=== PATIENT | female | born 1940 | race Caucasian/White ===

== ENCOUNTER 2018-07-09 11:15 | Outpatient (RCR) | payer MEDICARE, OTHER, SELFPAY ==
--- NOTE | 2018-05-12 09:45 | PT.OPPOC ---
Current Diagnoses Other abnormalities of gait and mobility (05/12/18) Unspecified abnormalities of gait and mobility (05/12/18) Provider Visit Care Team Role Provider Type Giselle Watson PA-C Attending Provider Advanced [employer] Primary Care Provider Specialty: Family Practice Address: [address] [place] [address], [facility] Email: [email or web address] Plan Of Care PT-OP-T Assessment and Plan Start: 05/12/18 10:30 Freq: Status: Active Protocol: Document 05/12/18 09:45 MDD (Rec: 05/12/18 10:54 MDD [email or web address]) Physical Therapy Assessment Rehab Potential Rehabilitation Potential Excellent Evaluation Complexity Number of Personal Factors/Comorbidities 1-2 Number of Body Systems Impaired 1-2 Clinical Presentation at Evaluation Stable Impairments Impairments Balance Functional Mobility Gait Strength Goals Four Impairment Balance Short Term Goal (STG) Pt to begin aerobic exercise program including walking on level ground for at least 30 minutes 5 days a week. STG Duration 6 weeks. Three Impairment Balance Fpc Goal (LTG) Pt to report no falls. LTG Duration 12 weeks Two Impairment Balance Short Term Goal (STG) Improve Staley Balance Score to 52/56 to demonstrate decreased fall risk. STG Duration 8 weeks One Impairment Strength Short Term Goal (STG) Improve LE strength to 5/5 in major muscle groups. STG Duration 8 weeks Assessment Summary Assessment Pt comes in today complaining of impaired balance with increased falls in the last year. On examination she demonstrates mild balance impairments and LE strength deficits. She should benefit from a physical therapy plan of care to address the above impairments. Physical Therapy Plan Frequency and Duration Frequency of Treatment 2x/Week Duration of Treatment 12 weeks Plan of Care Start Date 05/12/18 Plan of Care End Date 08/04/18 Therapeutic Interventions Therapeutic Interventions Balance Training Coordination Training Gait Training Home Exercise Program Neuromuscular Re-education Self-Care/Home Management Therapeutic Activities Therapeutic Exercises Next Visit Focus/Plan Next Note Type Treatment Note Next Visit Plan Perform DGI assessment, add standing hip abduction and additional exercises to HEP. Discuss walking program. Discuss considering cane. Plan of Care Dates Plan of Care Start Date 05/12/18 Plan of Care End Date 08/04/18 Please Sign and Return: I have reviewed this Plan of Care and certify that the skilled therapy services above are required to meet the patient?s needs. Physician Signature Date Printed Name and Credentials Clinical Instructor Signature Printed Name and Credentials
--- NOTE | 2018-05-12 09:45 | PT.OIE ---
Current Diagnoses Other abnormalities of gait and mobility (05/12/18) Unspecified abnormalities of gait and mobility (05/12/18) Provider Visit Care Team Role Provider Type Giselle Watson PA-C Attending Provider Advanced Neurosurgeon Primary Care Provider Specialty: Family Practice Address: [address] [place] [address], [facility] Email: [email or web address] Physical Therapy Initial Evaluation PT-OP-A Visit Information Start: 05/12/18 10:30 Freq: Status: Active Protocol: Document 05/12/18 09:45 MDD (Rec: 05/12/18 10:54 MDD [email or web address]) Out-Patient Physical Therapy Visit Information Visit Information Visit Type Initial Evaluation Visit Start Time 09:05 Visit Stop Time 09:45 Total Visit Minutes 40 Visit Number 1 Number of IRON PLASTIC BULLET MAKER Visits 0 Evaluation Information Evaluation Date 05/12/18 PT-OP-B Current Condition Start: 05/12/18 10:30 Freq: Status: Active Protocol: Document 05/12/18 09:45 MDD (Rec: 05/12/18 10:54 MDD [email or web address]) Current Condition History of Current Condition Onset Date Last few years Current Complaints worsening balance, multiple falls in the last 6 months History of Current Condition Incidious onset worsening balance. Reports she has to be very careful when bending forward or she will topple over. Also notes having difficulty going up/down stairs etc. Has one full flight of stairs in her home to get up to her bedroom, uses left hand railing. Lives alone. Has a daughter in [place] and a son in [place]. Denies dizziness, just feels like her balance is off. Prior Treatments and Tests auditory tests (nml) Future Testing and Treatments Planned NA Treatment Goals Patient/Caregiver Goals Decrease falls, improve balance, improve ability to ascend/descend stairs Prior Functional Status Baseline Function- ADL's Independent Baseline Function- Mobility Independent Baseline Function- Gait independent no AD Current Functional Impairments (Reported) Functional Limitations- Mobility/Gait Increasing falls, ascending/ descending stairs Functional Limitations- Recreation/ gardening - has to be extra Hobbies cautious to avoid falls PT-OP-C Subjective Start: 05/12/18 10:30 Freq: Status: Active Protocol: Document 05/12/18 09:45 MDD (Rec: 07/24/18 10:54 MDD [email or web address]) Patient Questionnaires ABC- Activity Specific Balance Confidence Scale ABC Functional Impairment 60 to <80% Impaired (Score 21- 40) PT-OP-D Balance Start: 05/12/18 10:30 Freq: Status: Active Protocol: Document 05/12/18 09:45 MDD (Rec: 05/12/18 10:54 MDD [email or web address]) OP-PT Balance Assessment Sitting Balance Static Sitting Balance Ability Normal Dynamic Sitting Balance Ability Normal Standing Balance Static Standing Balance Ability Good Dynamic Standing Balance Ability Fair Balance Tests Staley Balance Test Staley Balance Test Score 44 Staley Impairment Rating 20 to 39% Impaired (Score 34- 44) Staley Balance Assessment Evaluation Sitting to Standing Ability Independent w/out Hands Unsupported Stance Safely- 2 minutes Sitting Unsupported, Feet on Floor Safely- 2 minutes Standing to Sitting Ability Assist, Control w/Hands Transfer Ability Safely, Hand Use Unsupported Stance- Eyes Closed Supervision, 10 seconds Unsupported Stance- Eyes Open Supervision to maintain Reaching Forward Standing Confidently, 10 inches Pick- Up Object From Floor Supervision Look Behind Shoulder - Standing Shifts Weight Well Turning 360 Degrees Turns slowly, but safely Unsupported Stance, Alternating Feet on 4 Steps w/Supervision Stair Unsupported Tandem Stance Small Step- 30 seconds Unilateral Leg Stance Lifts Leg/Holds 5-10 secs Total Score Staley Total Score (out of 56 points) 44 Baez Fall Scale Copyright Permission Nestor JM, Nestor RM, Ti SJ. Development of a scale to identify the fall- prone patient. Can J Aging 1989;8;366-7. Fiorella Baez (2009). Preventing patient falls. (2nd ed). [place]: [employer]. PT-OP-G Mobility & Gait Start: 05/12/18 10:30 Freq: Status: Active Protocol: Document 05/12/18 09:45 MDD (Rec: 05/12/18 10:54 MDD [email or web address]) OP Mobility Evaluation Bed Mobility Rolling independent Supine to and from Sit independent OP Gait Assessment Gait Gait Assistance Required: Independent Distance (Feet) (feet) 30 Assistive Devices Assistive Device None PT-OP-M Strength Start: 05/12/18 10:30 Freq: Status: Active Protocol: Document 05/12/18 09:45 MDD (Rec: 05/12/18 10:54 MDD [email or web address]) Hip Strength Hip Manual Muscle Testing Right Flexion (L2) 5 Normal Extension (S1) 4+ Good+ Abduction 3+ Fair+ External Rotation 5 Normal Internal Rotation 5 Normal Left Flexion (L2) 4 Good Extension (S1) 4+ Good+ Abduction 3+ Fair+ External Rotation 5 Normal Internal Rotation 5 Normal Knee Strength Knee Manual Muscle Testing Right Flexion (S2) 5 Normal Extension (L3) 5 Normal Left Flexion (S2) 5 Normal Extension (L3) 5 Normal PT-OP-Q Treatments Start: 05/12/18 10:30 Freq: Status: Active Protocol: Document 05/12/18 09:45 MDD (Rec: 05/12/18 10:54 [facility] [email or web address]) Therapeutic Exercises Standing Exercises 2 Standing Exercise Name Heel Raises Side bilateral Reps/Minutes 2 x 20 Comments Using a counter for balance 1 Standing Exercise Name Sit to Stand Side bilateral Reps/Minutes 2 x 15 PT-OP-T Assessment and Plan Start: 05/12/18 10:30 Freq: Status: Active Protocol: Document 05/12/18 09:45 MDD (Rec: 05/12/18 10:54 [facility] [email or web address]) Physical Therapy Assessment Rehab Potential Rehabilitation Potential Excellent Evaluation Complexity Number of Personal Factors/Comorbidities 1-2 Number of Body Systems Impaired 1-2 Clinical Presentation at Evaluation Stable Impairments Impairments Balance Functional Mobility Gait Strength Goals Four Impairment Balance Short Term Goal (STG) Pt to begin aerobic exercise program including walking on level ground for at least 30 minutes 5 days a week. STG Duration 6 weeks. Three Impairment Balance Press Puller Goal (LTG) Pt to report no falls. LTG Duration 12 weeks Two Impairment Balance Short Term Goal (STG) Improve Staley Balance Score to 52/56 to demonstrate decreased fall risk. STG Duration 8 weeks One Impairment Strength Short Term Goal (STG) Improve LE strength to 5/5 in major muscle groups. STG Duration 8 weeks Assessment Summary Assessment Pt comes in today complaining of impaired balance with increased falls in the last year. On examination she demonstrates mild balance impairments and LE strength deficits. She should benefit from a physical therapy plan of care to address the above impairments. Physical Therapy Plan Frequency and Duration Frequency of Treatment 2x/Week Duration of Treatment 12 weeks Plan of Care Start Date 05/12/18 Plan of Care End Date 08/04/18 Therapeutic Interventions Therapeutic Interventions Balance Training Coordination Training Gait Training Home Exercise Program Neuromuscular Re-education Self-Care/Home Management Therapeutic Activities Therapeutic Exercises Next Visit Focus/Plan Next Note Type Treatment Note Next Visit Plan Perform DGI assessment, add standing hip abduction and additional exercises to HEP. Discuss walking program. Discuss considering cane.
--- NOTE | 2018-05-19 11:59 | PT.OTN ---
Current Diagnoses Other abnormalities of gait and mobility (05/19/18) Unspecified abnormalities of gait and mobility (05/19/18) Physical Therapy Treatment Note PT-OP-A Visit Information Start: 05/12/18 10:30 Freq: Status: Active Protocol: Document 05/19/18 09:00 SAK (Rec: 05/19/18 09:47 SAK [id number]) Out-Patient Physical Therapy Visit Information Visit Information Visit Type Treatment Note Visit Start Time 09:00 Visit Stop Time 09:40 Total Visit Minutes 45 Visit Number 2 Number of CANCER GENETICS ASSISTANT Visits 0 Evaluation Information Evaluation Date 05/12/18 PT-OP-B Current Condition Start: 05/12/18 10:30 Freq: Status: Active Protocol: Document 05/12/18 09:45 MDD (Rec: 05/12/18 10:54 MDD [email or web address]) Current Condition History of Current Condition Onset Date Last few years Current Complaints worsening balance, multiple falls in the last 6 months History of Current Condition Incidious onset worsening balance. Reports she has to be very careful when bending forward or she will topple over. Also notes having difficulty going up/down stairs etc. Has one full flight of stairs in her home to get up to her bedroom, uses left hand railing. Lives alone. Has a daughter in [place] and a son in [place]. Denies dizziness, just feels like her balance is off. Prior Treatments and Tests auditory tests (nml) Future Testing and Treatments Planned NA Treatment Goals Patient/Caregiver Goals Decrease falls, improve balance, improve ability to ascend/descend stairs Prior Functional Status Baseline Function- ADL's Independent Baseline Function- Mobility Independent Baseline Function- Gait independent no AD Current Functional Impairments (Reported) Functional Limitations- Mobility/Gait Increasing falls, ascending/ descending stairs Functional Limitations- Recreation/ gardening - has to be extra Hobbies cautious to avoid falls PT-OP-C Subjective Start: 05/12/18 10:30 Freq: Status: Active Protocol: Document 05/12/18 09:45 MDD (Rec: 05/12/18 10:54 MDD [email or web address]) Patient Questionnaires ABC- Activity Specific Balance Confidence Scale ABC Functional Impairment 60 to <80% Impaired (Score 21- 40) PT-OP-D Balance Start: 05/12/18 10:30 Freq: Status: Active Protocol: Document 05/12/18 09:45 MDD (Rec: 05/12/18 10:54 MDD [email or web address]) OP-PT Balance Assessment Sitting Balance Static Sitting Balance Ability Normal Dynamic Sitting Balance Ability Normal Standing Balance Static Standing Balance Ability Good Dynamic Standing Balance Ability Fair Balance Tests Staley Balance Test Staley Balance Test Score 44 Staley Impairment Rating 20 to 39% Impaired (Score 34- 44) Staley Balance Assessment Evaluation Sitting to Standing Ability Independent w/out Hands Unsupported Stance Safely- 2 minutes Sitting Unsupported, Feet on Floor Safely- 2 minutes Standing to Sitting Ability Assist, Control w/Hands Transfer Ability Safely, Hand Use Unsupported Stance- Eyes Closed Supervision, 10 seconds Unsupported Stance- Eyes Open Supervision to maintain Reaching Forward Standing Confidently, 10 inches Pick- Up Object From Floor Supervision Look Behind Shoulder - Standing Shifts Weight Well Turning 360 Degrees Turns slowly, but safely Unsupported Stance, Alternating Feet on 4 Steps w/Supervision Stair Unsupported Tandem Stance Small Step- 30 seconds Unilateral Leg Stance Lifts Leg/Holds 5-10 secs Total Score Staley Total Score (out of 56 points) 44 Baez Fall Scale Copyright Permission Nestor THORPE, Nestor RM, Ti SJ. Development of a scale to identify the fall- prone patient. Can J Aging 1989;8;366-7. Fiorella Baez (2009). Preventing patient falls. (2nd ed). [place]: [employer]. PT-OP-E Functional Tests Start: 05/12/18 10:30 Freq: Status: Active Protocol: Document 05/19/18 09:00 SAK (Rec: 05/19/18 11:58 SAK [id number]) Functional Tests Dynamic Gait Index (DGI) DGI Impairment Rating 40 to <60% Impaired (Score 10- 14) PT-OP-G Mobility & Gait Start: 05/12/18 10:30 Freq: Status: Active Protocol: Document 05/12/18 09:45 MDD (Rec: 05/12/18 10:54 MDD [email or web address]) OP Mobility Evaluation Bed Mobility Rolling independent Supine to and from Sit independent OP Gait Assessment Gait Gait Assistance Required: Independent Distance (Feet) (feet) 30 Assistive Devices Assistive Device None PT-OP-M Strength Start: 05/12/18 10:30 Freq: Status: Active Protocol: Document 05/12/18 09:45 MDD (Rec: 05/12/18 10:54 MDD [email or web address]) Hip Strength Hip Manual Muscle Testing Right Flexion (L2) 5 Normal Extension (S1) 4+ Good+ Abduction 3+ Fair+ External Rotation 5 Normal Internal Rotation 5 Normal Left Flexion (L2) 4 Good Extension (S1) 4+ Good+ Abduction 3+ Fair+ External Rotation 5 Normal Internal Rotation 5 Normal Knee Strength Knee Manual Muscle Testing Right Flexion (S2) 5 Normal Extension (L3) 5 Normal Left Flexion (S2) 5 Normal Extension (L3) 5 Normal PT-OP-Q Treatments Start: 05/12/18 10:30 Freq: Status: Active Protocol: Document 05/19/18 09:00 [facility] (Rec: 05/19/18 09:47 [facility] [id number]) Cardio Equipment Recumbent Elliptical (Decalog) Duration (Minutes) 5 Resistance 1.0 Therapeutic Exercises Standing Exercises 3 Standing Exercise Name squat Equipment Used chair Reps/Minutes 10x 2 Standing Exercise Name Heel Raises Side bilateral Reps/Minutes 2 x 20 Comments Using a counter for balance Neuro Re-Education Treatment Balance Activities 5 Details retrieving rings from ground Surface level 4 Details gait with head movements Surface level 3 Details stepping over hurdles fwd and sideways Surface level Equipment 6 hurdles 2 Details Tiltboard fwd/bck, side to side balance and weight shift Surface level 1 Details SLS EO and EC, tandem stand, march, sidestep, bckwd walk Surface level Equipment UE support PRN Self-Care/Home Management Treatment Education Patient Education Home Exercise Program Other Education written handout issued; stressed challenging but safe Discussed benefits of using walking stick or cane especially ourside; patient to consider. PT-OP-T Assessment and Plan Start: 05/12/18 10:30 Freq: Status: Active Protocol: Document 05/19/18 09:00 [facility] (Rec: 05/19/18 11:54 [facility] [id number]) Physical Therapy Assessment Goals Four Impairment Balance Short Term Goal (STG) Pt to begin aerobic exercise program including walking on level ground for at least 30 minutes 5 days a week. STG Duration 6 weeks. Three Impairment Balance Residential Goal (LTG) Pt to report no falls. LTG Duration 12 weeks Two Impairment Balance Short Term Goal (STG) Improve Staley Balance Score to 52/56 to demonstrate decreased fall risk. STG Duration 8 weeks One Impairment Strength Short Term Goal (STG) Improve LE strength to 5/5 in major muscle groups. STG Duration 8 weeks Assessment Summary Assessment Good tolerance for ther ex despite verbalizing she has a cold. Most difficulty with marching, stepping over hurdles, walking with head turns; required UE support or min manual assist for bal. Physical Therapy Plan Frequency and Duration Frequency of Treatment 2x/Week Duration of Treatment 12 weeks Plan of Care Start Date 05/12/18 Plan of Care End Date 08/04/18 Therapeutic Interventions Therapeutic Interventions Balance Training Coordination Training Gait Training Home Exercise Program Neuromuscular Re-education Self-Care/Home Management Therapeutic Activities Therapeutic Exercises Next Visit Focus/Plan Next Note Type Treatment Note
--- NOTE | 2018-05-26 17:25 | PT.OTN ---
Current Diagnoses Other abnormalities of gait and mobility (05/26/18) Unspecified abnormalities of gait and mobility (05/26/18) Physical Therapy Treatment Note PT-OP-A Visit Information Start: 05/12/18 10:30 Freq: Status: Active Protocol: Document 05/26/18 10:30 SAK (Rec: 05/26/18 17:25 SAK [id number]) Out-Patient Physical Therapy Visit Information Visit Information Visit Type Treatment Note Visit Start Time 10:30 Visit Stop Time 11:15 Total Visit Minutes 45 Visit Number 3 Number of FIXED WING PILOT Visits 0 Evaluation Information Evaluation Date 05/12/18 PT-OP-B Current Condition Start: 05/12/18 10:30 Freq: Status: Active Protocol: Document 05/12/18 09:45 MDD (Rec: 05/12/18 10:54 MDD [email or web address]) Current Condition History of Current Condition Onset Date Last few years Current Complaints worsening balance, multiple falls in the last 6 months History of Current Condition Incidious onset worsening balance. Reports she has to be very careful when bending forward or she will topple over. Also notes having difficulty going up/down stairs etc. Has one full flight of stairs in her home to get up to her bedroom, uses left hand railing. Lives alone. Has a daughter in [place] and a son in [place]. Denies dizziness, just feels like her balance is off. Prior Treatments and Tests auditory tests (nml) Future Testing and Treatments Planned NA Treatment Goals Patient/Caregiver Goals Decrease falls, improve balance, improve ability to ascend/descend stairs Prior Functional Status Baseline Function- ADL's Independent Baseline Function- Mobility Independent Baseline Function- Gait independent no AD Current Functional Impairments (Reported) Functional Limitations- Mobility/Gait Increasing falls, ascending/ descending stairs Functional Limitations- Recreation/ gardening - has to be extra Hobbies cautious to avoid falls PT-OP-C Subjective Start: 05/12/18 10:30 Freq: Status: Active Protocol: Document 05/26/18 10:30 SAK (Rec: 05/26/18 11:15 SAK [id number]) OP-PT Subjective Patient Comments Patient Comments Patient c/o having a cold, willing to wear a mask PT-OP-D Balance Start: 05/12/18 10:30 Freq: Status: Active Protocol: Document 05/12/18 09:45 MDD (Rec: 05/12/18 10:54 MDD [email or web address]) OP-PT Balance Assessment Sitting Balance Static Sitting Balance Ability Normal Dynamic Sitting Balance Ability Normal Standing Balance Static Standing Balance Ability Good Dynamic Standing Balance Ability Fair Balance Tests Staley Balance Test Staley Balance Test Score 44 Staley Impairment Rating 20 to 39% Impaired (Score 34- 44) Staley Balance Assessment Evaluation Sitting to Standing Ability Independent w/out Hands Unsupported Stance Safely- 2 minutes Sitting Unsupported, Feet on Floor Safely- 2 minutes Standing to Sitting Ability Assist, Control w/Hands Transfer Ability Safely, Hand Use Unsupported Stance- Eyes Closed Supervision, 10 seconds Unsupported Stance- Eyes Open Supervision to maintain Reaching Forward Standing Confidently, 10 inches Pick- Up Object From Floor Supervision Look Behind Shoulder - Standing Shifts Weight Well Turning 360 Degrees Turns slowly, but safely Unsupported Stance, Alternating Feet on 4 Steps w/Supervision Stair Unsupported Tandem Stance Small Step- 30 seconds Unilateral Leg Stance Lifts Leg/Holds 5-10 secs Total Score Staley Total Score (out of 56 points) 44 Baez Fall Scale Copyright Permission Nestor THORPE, Nestor RM, Ti SJ. Development of a scale to identify the fall- prone patient. Can J Aging 1989;8;366-7. Fiorella Baez (2009). Preventing patient falls. (2nd ed). [place]: [employer]. PT-OP-E Functional Tests Start: 05/12/18 10:30 Freq: Status: Active Protocol: Document 05/19/18 09:00 SAK (Rec: 05/19/18 11:58 SAK [id number]) Functional Tests Dynamic Gait Index (DGI) DGI Impairment Rating 40 to <60% Impaired (Score 10- 14) PT-OP-G Mobility & Gait Start: 05/12/18 10:30 Freq: Status: Active Protocol: Document 05/12/18 09:45 MDD (Rec: 05/12/18 10:54 MDD [email or web address]) OP Mobility Evaluation Bed Mobility Rolling independent Supine to and from Sit independent OP Gait Assessment Gait Gait Assistance Required: Independent Distance (Feet) (feet) 30 Assistive Devices Assistive Device None PT-OP-M Strength Start: 05/12/18 10:30 Freq: Status: Active Protocol: Document 05/12/18 09:45 MDD (Rec: 05/12/18 10:54 MDD [email or web address]) Hip Strength Hip Manual Muscle Testing Right Flexion (L2) 5 Normal Extension (S1) 4+ Good+ Abduction 3+ Fair+ External Rotation 5 Normal Internal Rotation 5 Normal Left Flexion (L2) 4 Good Extension (S1) 4+ Good+ Abduction 3+ Fair+ External Rotation 5 Normal Internal Rotation 5 Normal Knee Strength Knee Manual Muscle Testing Right Flexion (S2) 5 Normal Extension (L3) 5 Normal Left Flexion (S2) 5 Normal Extension (L3) 5 Normal PT-OP-Q Treatments Start: 05/12/18 10:30 Freq: Status: Active Protocol: Document 05/26/18 10:30 [facility] (Rec: 05/26/18 11:15 [facility] [id number]) Cardio Equipment Recumbent Stepper (Sci-Fit) Duration (Minutes) 5 Resistance 1.5 Seat Position 7 Gym Equipment Shuttle Balance 1 Details standing balance and wt shift EO Comments chains red Sport Cord 1 Exercise Details fwd, side, back Cord/Resistance green Neuro Re-Education Treatment Balance Activities 3 Details stepping over hurdles fwd and sideways Surface level Equipment 6 hurdles Comments minimal UE support 1 Details SLS EO and EC, tandem stand, march, sidestep, bckwd walk Surface level Equipment UE support PRN PT-OP-T Assessment and Plan Start: 05/12/18 10:30 Freq: Status: Active Protocol: Document 05/26/18 10:30 [facility] (Rec: 05/26/18 17:22 [facility] [id number]) Physical Therapy Assessment Assessment Summary Assessment Despite still not feeling well demonstrating good tolerance for progression of balance activities with occasional rest break. Agreed to see physician if her cold persists , was willing to wear a mask during treatment session. Physical Therapy Plan Frequency and Duration Frequency of Treatment 2x/Week Duration of Treatment 12 weeks Plan of Care Start Date 05/12/18 Plan of Care End Date 08/04/18 Therapeutic Interventions Therapeutic Interventions Balance Training Coordination Training Gait Training Home Exercise Program Neuromuscular Re-education Self-Care/Home Management Therapeutic Activities Therapeutic Exercises Next Visit Focus/Plan Next Note Type Treatment Note Next Visit Plan Progression of balance and general strengthening.
--- NOTE | 2018-06-10 10:48 | PT.OTN ---
Current Diagnoses Other abnormalities of gait and mobility (06/10/18) Unspecified abnormalities of gait and mobility (06/10/18) Physical Therapy Treatment Note PT-OP-A Visit Information Start: 05/12/18 10:30 Freq: Status: Active Protocol: Document 06/10/18 09:00 SAK (Rec: 06/10/18 09:50 SAK [id number]) Out-Patient Physical Therapy Visit Information Visit Information Visit Type Treatment Note Visit Start Time 09:00 Visit Stop Time 09:45 Total Visit Minutes 45 Visit Number 4 Number of RESPONDER Visits 0 Evaluation Information Evaluation Date 05/12/18 PT-OP-B Current Condition Start: 05/12/18 10:30 Freq: Status: Active Protocol: Document 05/12/18 09:45 MDD (Rec: 05/12/18 10:54 MDD [email or web address]) Current Condition History of Current Condition Onset Date Last few years Current Complaints worsening balance, multiple falls in the last 6 months History of Current Condition Incidious onset worsening balance. Reports she has to be very careful when bending forward or she will topple over. Also notes having difficulty going up/down stairs etc. Has one full flight of stairs in her home to get up to her bedroom, uses left hand railing. Lives alone. Has a daughter in [place] and a son in [place]. Denies dizziness, just feels like her balance is off. Prior Treatments and Tests auditory tests (nml) Future Testing and Treatments Planned NA Treatment Goals Patient/Caregiver Goals Decrease falls, improve balance, improve ability to ascend/descend stairs Prior Functional Status Baseline Function- ADL's Independent Baseline Function- Mobility Independent Baseline Function- Gait independent no AD Current Functional Impairments (Reported) Functional Limitations- Mobility/Gait Increasing falls, ascending/ descending stairs Functional Limitations- Recreation/ gardening - has to be extra Hobbies cautious to avoid falls PT-OP-C Subjective Start: 05/12/18 10:30 Freq: Status: Active Protocol: Document 06/10/18 09:00 SAK (Rec: 06/10/18 09:50 SAK [id number]) OP-PT Subjective Patient Comments Patient Comments No new c/o. Feels balance a little better PT-OP-D Balance Start: 05/12/18 10:30 Freq: Status: Active Protocol: Document 05/12/18 09:45 MDD (Rec: 05/12/18 10:54 MDD [email or web address]) OP-PT Balance Assessment Sitting Balance Static Sitting Balance Ability Normal Dynamic Sitting Balance Ability Normal Standing Balance Static Standing Balance Ability Good Dynamic Standing Balance Ability Fair Balance Tests Staley Balance Test Staley Balance Test Score 44 Staley Impairment Rating 20 to 39% Impaired (Score 34- 44) Staley Balance Assessment Evaluation Sitting to Standing Ability Independent w/out Hands Unsupported Stance Safely- 2 minutes Sitting Unsupported, Feet on Floor Safely- 2 minutes Standing to Sitting Ability Assist, Control w/Hands Transfer Ability Safely, Hand Use Unsupported Stance- Eyes Closed Supervision, 10 seconds Unsupported Stance- Eyes Open Supervision to maintain Reaching Forward Standing Confidently, 10 inches Pick- Up Object From Floor Supervision Look Behind Shoulder - Standing Shifts Weight Well Turning 360 Degrees Turns slowly, but safely Unsupported Stance, Alternating Feet on 4 Steps w/Supervision Stair Unsupported Tandem Stance Small Step- 30 seconds Unilateral Leg Stance Lifts Leg/Holds 5-10 secs Total Score Staley Total Score (out of 56 points) 44 Baez Fall Scale Copyright Permission Nestor THORPE, Nestor RM, Ti SJ. Development of a scale to identify the fall- prone patient. Can J Aging 1989;8;366-7. Fiorella Baez (2009). Preventing patient falls. (2nd ed). [place]: [employer]. PT-OP-E Functional Tests Start: 05/12/18 10:30 Freq: Status: Active Protocol: Document 05/19/18 09:00 SAK (Rec: 05/19/18 11:58 SAK [id number]) Functional Tests Dynamic Gait Index (DGI) DGI Impairment Rating 40 to <60% Impaired (Score 10- 14) PT-OP-G Mobility & Gait Start: 05/12/18 10:30 Freq: Status: Active Protocol: Document 05/12/18 09:45 MDD (Rec: 05/12/18 10:54 MDD [email or web address]) OP Mobility Evaluation Bed Mobility Rolling independent Supine to and from Sit independent OP Gait Assessment Gait Gait Assistance Required: Independent Distance (Feet) (feet) 30 Assistive Devices Assistive Device None PT-OP-M Strength Start: 05/12/18 10:30 Freq: Status: Active Protocol: Document 05/12/18 09:45 MDD (Rec: 05/12/18 10:54 MDD [email or web address]) Hip Strength Hip Manual Muscle Testing Right Flexion (L2) 5 Normal Extension (S1) 4+ Good+ Abduction 3+ Fair+ External Rotation 5 Normal Internal Rotation 5 Normal Left Flexion (L2) 4 Good Extension (S1) 4+ Good+ Abduction 3+ Fair+ External Rotation 5 Normal Internal Rotation 5 Normal Knee Strength Knee Manual Muscle Testing Right Flexion (S2) 5 Normal Extension (L3) 5 Normal Left Flexion (S2) 5 Normal Extension (L3) 5 Normal PT-OP-Q Treatments Start: 05/12/18 10:30 Freq: Status: Active Protocol: Document 06/10/18 09:00 [facility] (Rec: 06/10/18 09:50 [facility] [id number]) Cardio Equipment Recumbent Elliptical (PoshVine) Duration (Minutes) 7 Resistance 2 Seat Position 1 Gym Equipment Shuttle Balance 1 Details standing balance and wt shift EO Comments chains red, fwd/bck, side to side Sport Cord 1 Exercise Details fwd, side, back Cord/Resistance red Therapeutic Exercises Standing Exercises 4 Standing Exercise Name HC stretch Equipment Used LOW Neuro Re-Education Treatment Balance Activities 6 Details lunge walk 3 Details stepping over hurdles fwd and sideways Surface level Equipment 6 hurdles Comments minimal UE support PT-OP-T Assessment and Plan Start: 05/12/18 10:30 Freq: Status: Active Protocol: Document 06/10/18 09:00 [facility] (Rec: 06/10/18 09:50 [facility] [id number]) Physical Therapy Assessment Goals Four Impairment Balance Short Term Goal (STG) Pt to begin aerobic exercise program including walking on level ground for at least 30 minutes 5 days a week. STG Duration 6 weeks. Three Impairment Balance Care Home Goal (LTG) Pt to report no falls. LTG Duration 12 weeks Two Impairment Balance Short Term Goal (STG) Improve Staley Balance Score to 52/56 to demonstrate decreased fall risk. STG Duration 8 weeks One Impairment Strength Short Term Goal (STG) Improve LE strength to 5/5 in major muscle groups. STG Duration 8 weeks Assessment Summary Assessment good tolerance for progression of strengthening and balance exercises today. Cold much better. Compliant to HEP Physical Therapy Plan Next Visit Focus/Plan Next Note Type Treatment Note Next Visit Plan Continue to progress ther ex as tolerated.
--- NOTE | 2018-06-16 09:47 | PT.OTN ---
Current Diagnoses Other abnormalities of gait and mobility (06/16/18) Unspecified abnormalities of gait and mobility (06/16/18) Physical Therapy Treatment Note PT-OP-A Visit Information Start: 05/12/18 10:30 Freq: Status: Active Protocol: Document 06/16/18 09:02 SAK (Rec: 06/16/18 09:40 SAK [id number]) Out-Patient Physical Therapy Visit Information Visit Information Visit Type Treatment Note Visit Start Time 09:00 Visit Stop Time 09:45 Total Visit Minutes 45 Visit Number 5 Number of PHYSIOLOGIST Visits 0 Evaluation Information Evaluation Date 05/12/18 PT-OP-B Current Condition Start: 05/12/18 10:30 Freq: Status: Active Protocol: Document 05/12/18 09:45 MDD (Rec: 05/12/18 10:54 MDD [email or web address]) Current Condition History of Current Condition Onset Date Last few years Current Complaints worsening balance, multiple falls in the last 6 months History of Current Condition Incidious onset worsening balance. Reports she has to be very careful when bending forward or she will topple over. Also notes having difficulty going up/down stairs etc. Has one full flight of stairs in her home to get up to her bedroom, uses left hand railing. Lives alone. Has a daughter in [place] and a son in [place]. Denies dizziness, just feels like her balance is off. Prior Treatments and Tests auditory tests (nml) Future Testing and Treatments Planned NA Treatment Goals Patient/Caregiver Goals Decrease falls, improve balance, improve ability to ascend/descend stairs Prior Functional Status Baseline Function- ADL's Independent Baseline Function- Mobility Independent Baseline Function- Gait independent no AD Current Functional Impairments (Reported) Functional Limitations- Mobility/Gait Increasing falls, ascending/ descending stairs Functional Limitations- Recreation/ gardening - has to be extra Hobbies cautious to avoid falls PT-OP-C Subjective Start: 05/12/18 10:30 Freq: Status: Active Protocol: Document 06/16/18 09:02 SAK (Rec: 06/16/18 09:40 SAK [id number]) OP-PT Subjective Patient Comments Patient Comments Not doing the exercises as much as I should PT-OP-D Balance Start: 05/12/18 10:30 Freq: Status: Active Protocol: Document 05/12/18 09:45 MDD (Rec: 05/12/18 10:54 MDD [email or web address]) OP-PT Balance Assessment Sitting Balance Static Sitting Balance Ability Normal Dynamic Sitting Balance Ability Normal Standing Balance Static Standing Balance Ability Good Dynamic Standing Balance Ability Fair Balance Tests Staley Balance Test Staley Balance Test Score 44 Staley Impairment Rating 20 to 39% Impaired (Score 34- 44) Staley Balance Assessment Evaluation Sitting to Standing Ability Independent w/out Hands Unsupported Stance Safely- 2 minutes Sitting Unsupported, Feet on Floor Safely- 2 minutes Standing to Sitting Ability Assist, Control w/Hands Transfer Ability Safely, Hand Use Unsupported Stance- Eyes Closed Supervision, 10 seconds Unsupported Stance- Eyes Open Supervision to maintain Reaching Forward Standing Confidently, 10 inches Pick- Up Object From Floor Supervision Look Behind Shoulder - Standing Shifts Weight Well Turning 360 Degrees Turns slowly, but safely Unsupported Stance, Alternating Feet on 4 Steps w/Supervision Stair Unsupported Tandem Stance Small Step- 30 seconds Unilateral Leg Stance Lifts Leg/Holds 5-10 secs Total Score Staley Total Score (out of 56 points) 44 Baez Fall Scale Copyright Permission Nestor THORPE, Nestor RM, Ti SJ. Development of a scale to identify the fall- prone patient. Can J Aging 1989;8;366-7. Fiorella Baez (2009). Preventing patient falls. (2nd ed). [place]: [employer]. PT-OP-E Functional Tests Start: 05/12/18 10:30 Freq: Status: Active Protocol: Document 05/19/18 09:00 SAK (Rec: 05/19/18 11:58 SAK [id number]) Functional Tests Dynamic Gait Index (DGI) DGI Impairment Rating 40 to <60% Impaired (Score 10- 14) PT-OP-G Mobility & Gait Start: 05/12/18 10:30 Freq: Status: Active Protocol: Document 05/12/18 09:45 MDD (Rec: 05/12/18 10:54 MDD [email or web address]) OP Mobility Evaluation Bed Mobility Rolling independent Supine to and from Sit independent OP Gait Assessment Gait Gait Assistance Required: Independent Distance (Feet) (feet) 30 Assistive Devices Assistive Device None PT-OP-M Strength Start: 05/12/18 10:30 Freq: Status: Active Protocol: Document 05/12/18 09:45 MDD (Rec: 05/12/18 10:54 MDD [email or web address]) Hip Strength Hip Manual Muscle Testing Right Flexion (L2) 5 Normal Extension (S1) 4+ Good+ Abduction 3+ Fair+ External Rotation 5 Normal Internal Rotation 5 Normal Left Flexion (L2) 4 Good Extension (S1) 4+ Good+ Abduction 3+ Fair+ External Rotation 5 Normal Internal Rotation 5 Normal Knee Strength Knee Manual Muscle Testing Right Flexion (S2) 5 Normal Extension (L3) 5 Normal Left Flexion (S2) 5 Normal Extension (L3) 5 Normal PT-OP-Q Treatments Start: 05/12/18 10:30 Freq: Status: Active Protocol: Document 06/16/18 09:02 [facility] (Rec: 06/16/18 09:40 [facility] [id number]) Cardio Equipment Recumbent Stepper (Sci-Fit) Duration (Minutes) 8 Resistance 2 Gym Equipment Shuttle Balance 1 Details standing balance and wt shift EO Comments chains red, fwd/bck, side to side Neuro Re-Education Treatment Balance Activities 7 Details gait on uneven surface Equipment pods under red mat 6 Details lunge walk 4 Details gait with head movements Surface level 3 Details stepping over hurdles fwd and sideways Surface level Equipment 6 hurdles Comments minimal UE support PT-OP-T Assessment and Plan Start: 05/12/18 10:30 Freq: Status: Active Protocol: Document 06/16/18 09:02 [facility] (Rec: 06/16/18 09:40 [facility] [id number]) Physical Therapy Assessment Goals Four Impairment Balance Short Term Goal (STG) Pt to begin aerobic exercise program including walking on level ground for at least 30 minutes 5 days a week. STG Duration 6 weeks. Three Impairment Balance Strip Feeder Goal (LTG) Pt to report no falls. LTG Duration 12 weeks Two Impairment Balance Short Term Goal (STG) Improve Staley Balance Score to 52/56 to demonstrate decreased fall risk. STG Duration 8 weeks One Impairment Strength Short Term Goal (STG) Improve LE strength to 5/5 in major muscle groups. STG Duration 8 weeks Progress Towards Goals Progress Towards Goals Progressing Toward Goals Assessment Summary Assessment Improving balance per patient report. Needs increased compliance to HEP Physical Therapy Plan Frequency and Duration Frequency of Treatment 2x/Week Duration of Treatment 12 weeks Plan of Care Start Date 05/12/18 Plan of Care End Date 08/04/18 Therapeutic Interventions Therapeutic Interventions Balance Training Coordination Training Gait Training Home Exercise Program Neuromuscular Re-education Self-Care/Home Management Therapeutic Activities Therapeutic Exercises Next Visit Focus/Plan Next Note Type Treatment Note Next Visit Plan Continue to progress ther ex as tolerated.
--- NOTE | 2018-06-18 12:41 | PT.OTN ---
Current Diagnoses Other abnormalities of gait and mobility (06/18/18) Unspecified abnormalities of gait and mobility (06/18/18) Physical Therapy Treatment Note PT-OP-A Visit Information Start: 05/12/18 10:30 Freq: Status: Active Protocol: Document 06/18/18 12:00 [facility] (Rec: 06/18/18 12:41 [facility] [id number]) Out-Patient Physical Therapy Visit Information Visit Information Visit Type Treatment Note Visit Start Time 12:00 Visit Stop Time 12:45 Total Visit Minutes 45 Visit Number 6 Number of CHIEF NUCLEAR MEDICINE TECHNOLOGIST Visits 0 Evaluation Information Evaluation Date 05/12/18 PT-OP-B Current Condition Start: 05/12/18 10:30 Freq: Status: Active Protocol: Document 05/12/18 09:45 MDD (Rec: 05/12/18 10:54 MDD [email or web address]) Current Condition History of Current Condition Onset Date Last few years Current Complaints worsening balance, multiple falls in the last 6 months History of Current Condition Incidious onset worsening balance. Reports she has to be very careful when bending forward or she will topple over. Also notes having difficulty going up/down stairs etc. Has one full flight of stairs in her home to get up to her bedroom, uses left hand railing. Lives alone. Has a daughter in [place] and a son in [place]. Denies dizziness, just feels like her balance is off. Prior Treatments and Tests auditory tests (nml) Future Testing and Treatments Planned NA Treatment Goals Patient/Caregiver Goals Decrease falls, improve balance, improve ability to ascend/descend stairs Prior Functional Status Baseline Function- ADL's Independent Baseline Function- Mobility Independent Baseline Function- Gait independent no AD Current Functional Impairments (Reported) Functional Limitations- Mobility/Gait Increasing falls, ascending/ descending stairs Functional Limitations- Recreation/ gardening - has to be extra Hobbies cautious to avoid falls PT-OP-C Subjective Start: 05/12/18 10:30 Freq: Status: Active Protocol: Document 06/18/18 12:00 [facility] (Rec: 06/18/18 12:41 [facility] [id number]) OP-PT Subjective Patient Comments Patient Comments I feel like things are going well since I started therapy, but I will admit that I've been slipping on my home exercises. PT-OP-D Balance Start: 05/12/18 10:30 Freq: Status: Active Protocol: Document 05/12/18 09:45 MDD (Rec: 05/12/18 10:54 MDD [email or web address]) OP-PT Balance Assessment Sitting Balance Static Sitting Balance Ability Normal Dynamic Sitting Balance Ability Normal Standing Balance Static Standing Balance Ability Good Dynamic Standing Balance Ability Fair Balance Tests Staley Balance Test Staley Balance Test Score 44 Staley Impairment Rating 20 to 39% Impaired (Score 34- 44) Staley Balance Assessment Evaluation Sitting to Standing Ability Independent w/out Hands Unsupported Stance Safely- 2 minutes Sitting Unsupported, Feet on Floor Safely- 2 minutes Standing to Sitting Ability Assist, Control w/Hands Transfer Ability Safely, Hand Use Unsupported Stance- Eyes Closed Supervision, 10 seconds Unsupported Stance- Eyes Open Supervision to maintain Reaching Forward Standing Confidently, 10 inches Pick- Up Object From Floor Supervision Look Behind Shoulder - Standing Shifts Weight Well Turning 360 Degrees Turns slowly, but safely Unsupported Stance, Alternating Feet on 4 Steps w/Supervision Stair Unsupported Tandem Stance Small Step- 30 seconds Unilateral Leg Stance Lifts Leg/Holds 5-10 secs Total Score Staley Total Score (out of 56 points) 44 Baez Fall Scale Copyright Permission Nestor THORPE, Nestor RM, Ti SJ. Development of a scale to identify the fall- prone patient. Can J Aging 1989;8;366-7. Fiorella Baez (2009). Preventing patient falls. (2nd ed). [place]: [employer]. PT-OP-E Functional Tests Start: 05/12/18 10:30 Freq: Status: Active Protocol: Document 05/19/18 09:00 SAK (Rec: 05/19/18 11:58 SAK [id number]) Functional Tests Dynamic Gait Index (DGI) DGI Impairment Rating 40 to <60% Impaired (Score 10- 14) PT-OP-G Mobility & Gait Start: 05/12/18 10:30 Freq: Status: Active Protocol: Document 05/12/18 09:45 MDD (Rec: 05/12/18 10:54 MDD [email or web address]) OP Mobility Evaluation Bed Mobility Rolling independent Supine to and from Sit independent OP Gait Assessment Gait Gait Assistance Required: Independent Distance (Feet) (feet) 30 Assistive Devices Assistive Device None PT-OP-M Strength Start: 05/12/18 10:30 Freq: Status: Active Protocol: Document 05/12/18 09:45 MDD (Rec: 05/12/18 10:54 MDD [email or web address]) Hip Strength Hip Manual Muscle Testing Right Flexion (L2) 5 Normal Extension (S1) 4+ Good+ Abduction 3+ Fair+ External Rotation 5 Normal Internal Rotation 5 Normal Left Flexion (L2) 4 Good Extension (S1) 4+ Good+ Abduction 3+ Fair+ External Rotation 5 Normal Internal Rotation 5 Normal Knee Strength Knee Manual Muscle Testing Right Flexion (S2) 5 Normal Extension (L3) 5 Normal Left Flexion (S2) 5 Normal Extension (L3) 5 Normal PT-OP-Q Treatments Start: 05/12/18 10:30 Freq: Status: Active Protocol: Document 06/18/18 12:00 [facility] (Rec: 06/18/18 12:41 DCW [id number]) Cardio Equipment Recumbent Elliptical (BiodTripda) Duration (Minutes) 7 Resistance 5 Seat Position 1 Gym Equipment Shuttle Balance 1 Details standing balance and wt shift EO Comments chains red, fwd/bck, side to side Therapeutic Exercises Standing Exercises 3 Standing Exercise Name squat Equipment Used chair Reps/Minutes 10x 2 Standing Exercise Name Heel Raises Side bilateral Reps/Minutes 2 x 20 Comments Using a counter for balance Other Exercises 2 Other Exercise Name Resisted Forward/Retro ambulation Resistance Yellow Equipment Used T-band 1 Other Exercise Name Resisted Side-stepping Resistance Yellow Equipment Used T-band Neuro Re-Education Treatment Balance Activities 8 Details Semi-tandem stance Surface Blue/Green foam Comments Eyes open/closed 4 Details gait with head movements Surface level 3 Details stepping over hurdles fwd and sideways Surface foam Equipment 6 hurdles Comments minimal UE support PT-OP-T Assessment and Plan Start: 05/12/18 10:30 Freq: Status: Active Protocol: Document 06/18/18 12:00 [facility] (Rec: 06/18/18 12:41 DC[facility] [id number]) Physical Therapy Assessment Goals Four Impairment Balance Short Term Goal (STG) Pt to begin aerobic exercise program including walking on level ground for at least 30 minutes 5 days a week. STG Duration 6 weeks. Three Impairment Balance Climatology Professor Goal (LTG) Pt to report no falls. LTG Duration 12 weeks Two Impairment Balance Short Term Goal (STG) Improve Staley Balance Score to 52/56 to demonstrate decreased fall risk. STG Duration 8 weeks One Impairment Strength Short Term Goal (STG) Improve LE strength to 5/5 in major muscle groups. STG Duration 8 weeks Assessment Summary Assessment Subjective improvement of strength and balance. Physical Therapy Plan Frequency and Duration Frequency of Treatment 2x/Week Duration of Treatment 12 weeks Plan of Care Start Date 05/12/18 Plan of Care End Date 08/04/18 Therapeutic Interventions Therapeutic Interventions Balance Training Coordination Training Gait Training Home Exercise Program Neuromuscular Re-education Self-Care/Home Management Therapeutic Activities Therapeutic Exercises Next Visit Focus/Plan Next Note Type Treatment Note Next Visit Plan Continue to progress ther ex as tolerated.
--- NOTE | 2018-06-23 10:32 | PT.OTN ---
Current Diagnoses Other abnormalities of gait and mobility (06/23/18) Unspecified abnormalities of gait and mobility (06/23/18) Physical Therapy Treatment Note PT-OP-A Visit Information Start: 05/12/18 10:30 Freq: Status: Active Protocol: Document 06/23/18 10:32 MDD (Rec: 06/23/18 15:29 MDD [email or web address]) Out-Patient Physical Therapy Visit Information Visit Information Visit Type Treatment Note Visit Start Time 09:51 Visit Stop Time 10:32 Total Visit Minutes 41 Visit Number 7 Number of DAY CARE DIRECTOR Visits 0 Evaluation Information Evaluation Date 05/12/18 PT-OP-B Current Condition Start: 05/12/18 10:30 Freq: Status: Active Protocol: Document 05/12/18 09:45 MDD (Rec: 05/12/18 10:54 MDD [email or web address]) Current Condition History of Current Condition Onset Date Last few years Current Complaints worsening balance, multiple falls in the last 6 months History of Current Condition Incidious onset worsening balance. Reports she has to be very careful when bending forward or she will topple over. Also notes having difficulty going up/down stairs etc. Has one full flight of stairs in her home to get up to her bedroom, uses left hand railing. Lives alone. Has a daughter in [place] and a son in [place]. Denies dizziness, just feels like her balance is off. Prior Treatments and Tests auditory tests (nml) Future Testing and Treatments Planned NA Treatment Goals Patient/Caregiver Goals Decrease falls, improve balance, improve ability to ascend/descend stairs Prior Functional Status Baseline Function- ADL's Independent Baseline Function- Mobility Independent Baseline Function- Gait independent no AD Current Functional Impairments (Reported) Functional Limitations- Mobility/Gait Increasing falls, ascending/ descending stairs Functional Limitations- Recreation/ gardening - has to be extra Hobbies cautious to avoid falls PT-OP-C Subjective Start: 05/12/18 10:30 Freq: Status: Active Protocol: Document 06/23/18 10:32 MDD (Rec: 06/23/18 15:29 MDD [email or web address]) OP-PT Subjective Patient Comments Patient Comments Pt continues to report that she has noticed an improvement in her balance, but is having a hard time setting aside time to do her exercises. Patient Reported Progress Improving PT-OP-D Balance Start: 05/12/18 10:30 Freq: Status: Active Protocol: Document 05/12/18 09:45 MDD (Rec: 05/12/18 10:54 MDD [email or web address]) OP-PT Balance Assessment Sitting Balance Static Sitting Balance Ability Normal Dynamic Sitting Balance Ability Normal Standing Balance Static Standing Balance Ability Good Dynamic Standing Balance Ability Fair Balance Tests Staley Balance Test Staley Balance Test Score 44 Staley Impairment Rating 20 to 39% Impaired (Score 34- 44) Staley Balance Assessment Evaluation Sitting to Standing Ability Independent w/out Hands Unsupported Stance Safely- 2 minutes Sitting Unsupported, Feet on Floor Safely- 2 minutes Standing to Sitting Ability Assist, Control w/Hands Transfer Ability Safely, Hand Use Unsupported Stance- Eyes Closed Supervision, 10 seconds Unsupported Stance- Eyes Open Supervision to maintain Reaching Forward Standing Confidently, 10 inches Pick- Up Object From Floor Supervision Look Behind Shoulder - Standing Shifts Weight Well Turning 360 Degrees Turns slowly, but safely Unsupported Stance, Alternating Feet on 4 Steps w/Supervision Stair Unsupported Tandem Stance Small Step- 30 seconds Unilateral Leg Stance Lifts Leg/Holds 5-10 secs Total Score Staley Total Score (out of 56 points) 44 Baez Fall Scale Copyright Permission Nestor THORPE, Nestor RM, Ti SJ. Development of a scale to identify the fall- prone patient. Can J Aging 1989;8;366-7. Fiorella Baez (2009). Preventing patient falls. (2nd ed). [place]: [employer]. PT-OP-E Functional Tests Start: 05/12/18 10:30 Freq: Status: Active Protocol: Document 05/19/18 09:00 SAK (Rec: 05/19/18 11:58 SAK [id number]) Functional Tests Dynamic Gait Index (DGI) DGI Impairment Rating 40 to <60% Impaired (Score 10- 14) PT-OP-G Mobility & Gait Start: 05/12/18 10:30 Freq: Status: Active Protocol: Document 05/12/18 09:45 MDD (Rec: 05/12/18 10:54 MDD [email or web address]) OP Mobility Evaluation Bed Mobility Rolling independent Supine to and from Sit independent OP Gait Assessment Gait Gait Assistance Required: Independent Distance (Feet) (feet) 30 Assistive Devices Assistive Device None PT-OP-M Strength Start: 05/12/18 10:30 Freq: Status: Active Protocol: Document 05/12/18 09:45 MDD (Rec: 05/12/18 10:54 MDD [email or web address]) Hip Strength Hip Manual Muscle Testing Right Flexion (L2) 5 Normal Extension (S1) 4+ Good+ Abduction 3+ Fair+ External Rotation 5 Normal Internal Rotation 5 Normal Left Flexion (L2) 4 Good Extension (S1) 4+ Good+ Abduction 3+ Fair+ External Rotation 5 Normal Internal Rotation 5 Normal Knee Strength Knee Manual Muscle Testing Right Flexion (S2) 5 Normal Extension (L3) 5 Normal Left Flexion (S2) 5 Normal Extension (L3) 5 Normal PT-OP-Q Treatments Start: 05/12/18 10:30 Freq: Status: Active Protocol: Document 06/23/18 10:32 MDD (Rec: 06/23/18 15:29 MDD [email or web address]) Cardio Equipment Recumbent Elliptical ([employer]) Duration (Minutes) 5 Resistance 5 Seat Position 1 Gym Equipment Shuttle Balance 1 Details standing balance and wt shift EO Comments chains red, fwd/bck, side to side Therapeutic Exercises Standing Exercises 3 Standing Exercise Name squat Equipment Used chair Reps/Minutes 20x 2 Standing Exercise Name Heel Raises - progressed to single leg Side bilateral Reps/Minutes 2 x 15 each Comments Using a counter for balance Other Exercises 3 Other Exercise Name mini lunge Side bilateral Reps/Minutes 15 Comments single UE support on // bars 2 Other Exercise Name Resisted Forward/Retro ambulation Resistance Yellow Equipment Used T-band 1 Other Exercise Name Resisted Side-stepping Resistance Yellow Equipment Used T-band Therapeutic Activity Therapeutic Activity Reaching for ball Name lunge and reach Reps/Minutes 15 Bilateral Comments lunge and forward reach for small ball placed in various positions in front and below PT-OP-T Assessment and Plan Start: 05/12/18 10:30 Freq: Status: Active Protocol: Document 06/23/18 10:32 MDD (Rec: 06/23/18 15:29 MDD [email or web address]) Physical Therapy Assessment Goals Four Impairment Balance Short Term Goal (STG) Pt to begin aerobic exercise program including walking on level ground for at least 30 minutes 5 days a week. STG Duration 6 weeks. Three Impairment Balance [facility] Goal (LTG) Pt to report no falls. LTG Duration 12 weeks Two Impairment Balance Short Term Goal (STG) Improve Staley Balance Score to 52/56 to demonstrate decreased fall risk. STG Duration 8 weeks One Impairment Strength Short Term Goal (STG) Improve LE strength to 5/5 in major muscle groups. STG Duration 8 weeks Progress Towards Goals Progress Towards Goals Progressing Toward Goals Assessment Summary Assessment Demonstrates improved stability when performing lunge and reach activity (to simulate picking weeds) Physical Therapy Plan Frequency and Duration Frequency of Treatment 2x/Week Duration of Treatment 12 weeks Plan of Care Start Date 05/12/18 Plan of Care End Date 08/04/18 Next Visit Focus/Plan Next Note Type Treatment Note Next Visit Plan Continue to progress ther ex as tolerated. Focus on HEP compliance. Provided pt with 2 handouts to post in various places at home. Discussed filling in date of days she does exercises.
--- NOTE | 2018-06-26 11:13 | PT.OTN ---
Current Diagnoses Other abnormalities of gait and mobility (06/26/18) Unspecified abnormalities of gait and mobility (06/26/18) Physical Therapy Treatment Note PT-OP-A Visit Information Start: 05/12/18 10:30 Freq: Status: Active Protocol: Document 06/26/18 10:30 DCW (Rec: 06/26/18 11:13 DCW [id number]) Out-Patient Physical Therapy Visit Information Visit Information Visit Type Treatment Note Visit Start Time 10:30 Visit Stop Time 11:15 Total Visit Minutes 45 Visit Number 8 Number of PAN OPERATOR Visits 0 Evaluation Information Evaluation Date 05/12/18 PT-OP-B Current Condition Start: 05/12/18 10:30 Freq: Status: Active Protocol: Document 05/12/18 09:45 MDD (Rec: 05/12/18 10:54 MDD [email or web address]) Current Condition History of Current Condition Onset Date Last few years Current Complaints worsening balance, multiple falls in the last 6 months History of Current Condition Insidious onset worsening balance. Reports she has to be very careful when bending forward or she will topple over. Also notes having difficulty going up/down stairs etc. Has one full flight of stairs in her home to get up to her bedroom, uses left hand railing. Lives alone. Has a daughter in [place] and a son in [place]. Denies dizziness, just feels like her balance is off. Prior Treatments and Tests auditory tests (nml) Future Testing and Treatments Planned NA Treatment Goals Patient/Caregiver Goals Decrease falls, improve balance, improve ability to ascend/descend stairs Prior Functional Status Baseline Function- ADL's Independent Baseline Function- Mobility Independent Baseline Function- Gait independent no AD Current Functional Impairments (Reported) Functional Limitations- Mobility/Gait Increasing falls, ascending/ descending stairs Functional Limitations- Recreation/ gardening - has to be extra Hobbies cautious to avoid falls PT-OP-C Subjective Start: 05/12/18 10:30 Freq: Status: Active Protocol: Document 06/26/18 10:30 DCW (Rec: 06/26/18 11:13 DCW [id number]) OP-PT Subjective Patient Comments Patient Comments I think I am doing a lot better with my exercises, and actually taking the time to do them. PT-OP-D Balance Start: 05/12/18 10:30 Freq: Status: Active Protocol: Document 05/12/18 09:45 MDD (Rec: 05/12/18 10:54 MDD [email or web address]) OP-PT Balance Assessment Sitting Balance Static Sitting Balance Ability Normal Dynamic Sitting Balance Ability Normal Standing Balance Static Standing Balance Ability Good Dynamic Standing Balance Ability Fair Balance Tests Staley Balance Test Staley Balance Test Score 44 Staley Impairment Rating 20 to 39% Impaired (Score 34- 44) Staley Balance Assessment Evaluation Sitting to Standing Ability Independent w/out Hands Unsupported Stance Safely- 2 minutes Sitting Unsupported, Feet on Floor Safely- 2 minutes Standing to Sitting Ability Assist, Control w/Hands Transfer Ability Safely, Hand Use Unsupported Stance- Eyes Closed Supervision, 10 seconds Unsupported Stance- Eyes Open Supervision to maintain Reaching Forward Standing Confidently, 10 inches Pick- Up Object From Floor Supervision Look Behind Shoulder - Standing Shifts Weight Well Turning 360 Degrees Turns slowly, but safely Unsupported Stance, Alternating Feet on 4 Steps w/Supervision Stair Unsupported Tandem Stance Small Step- 30 seconds Unilateral Leg Stance Lifts Leg/Holds 5-10 secs Total Score Staley Total Score (out of 56 points) 44 Baez Fall Scale Copyright Permission Nestor JM, Nestor RM, Ti SJ. Development of a scale to identify the fall- prone patient. Can J Aging 1989;8;366-7. Fiorella Baez (2009). Preventing patient falls. (2nd ed). [place]: [employer]. PT-OP-E Functional Tests Start: 05/12/18 10:30 Freq: Status: Active Protocol: Document 05/19/18 09:00 SAK (Rec: 05/19/18 11:58 SAK [id number]) Functional Tests Dynamic Gait Index (DGI) DGI Impairment Rating 40 to <60% Impaired (Score 10- 14) PT-OP-G Mobility & Gait Start: 05/12/18 10:30 Freq: Status: Active Protocol: Document 05/12/18 09:45 MDD (Rec: 05/12/18 10:54 MDD [email or web address]) OP Mobility Evaluation Bed Mobility Rolling independent Supine to and from Sit independent OP Gait Assessment Gait Gait Assistance Required: Independent Distance (Feet) (feet) 30 Assistive Devices Assistive Device None PT-OP-M Strength Start: 05/12/18 10:30 Freq: Status: Active Protocol: Document 05/12/18 09:45 MDD (Rec: 05/12/18 10:54 MDD [email or web address]) Hip Strength Hip Manual Muscle Testing Right Flexion (L2) 5 Normal Extension (S1) 4+ Good+ Abduction 3+ Fair+ External Rotation 5 Normal Internal Rotation 5 Normal Left Flexion (L2) 4 Good Extension (S1) 4+ Good+ Abduction 3+ Fair+ External Rotation 5 Normal Internal Rotation 5 Normal Knee Strength Knee Manual Muscle Testing Right Flexion (S2) 5 Normal Extension (L3) 5 Normal Left Flexion (S2) 5 Normal Extension (L3) 5 Normal PT-OP-Q Treatments Start: 05/12/18 10:30 Freq: Status: Active Protocol: Document 06/26/18 10:30 DCW (Rec: 06/26/18 11:13 DCW [id number]) Cardio Equipment Recumbent Elliptical (Path101) Duration (Minutes) 7 Resistance 5 Seat Position 1 Gym Equipment Shuttle Balance 1 Details standing balance and wt shift EO Comments chains red, fwd/bck, side to side Therapeutic Exercises Standing Exercises 2 Standing Exercise Name Heel Raises - progressed to single leg Side bilateral Reps/Minutes 2 x 20 each Comments Using a counter for balance Other Exercises 3 Other Exercise Name mini lunge Side bilateral Reps/Minutes 15 Comments single UE support on rail 2 Other Exercise Name Resisted Forward/Retro ambulation Resistance Yellow Equipment Used T-band 1 Other Exercise Name Resisted Side-stepping Resistance Yellow Equipment Used T-band Neuro Re-Education Treatment Balance Activities 3 Details stepping over hurdles fwd and sideways Surface foam Equipment 6 hurdles Comments minimal UE support PT-OP-T Assessment and Plan Start: 05/12/18 10:30 Freq: Status: Active Protocol: Document 06/26/18 10:30 DCW (Rec: 06/26/18 11:13 DCW [id number]) Physical Therapy Assessment Impairments Impairments Balance Functional Mobility Gait Strength Goals Four Impairment Balance Short Term Goal (STG) Pt to begin aerobic exercise program including walking on level ground for at least 30 minutes 5 days a week. STG Duration 6 weeks. Three Impairment Balance Custodial Goal (LTG) Pt to report no falls. LTG Duration 12 weeks Two Impairment Balance Short Term Goal (STG) Improve Staley Balance Score to 52/56 to demonstrate decreased fall risk. STG Duration 8 weeks One Impairment Strength Short Term Goal (STG) Improve LE strength to 5/5 in major muscle groups. STG Duration 8 weeks Assessment Summary Assessment Improved HEP compliance, pt demonstrates increased balance and stability during standing . Physical Therapy Plan Frequency and Duration Frequency of Treatment 2x/Week Duration of Treatment 12 weeks Plan of Care Start Date 05/12/18 Plan of Care End Date 08/04/18 Therapeutic Interventions Therapeutic Interventions Balance Training Coordination Training Gait Training Home Exercise Program Neuromuscular Re-education Self-Care/Home Management Therapeutic Activities Therapeutic Exercises Next Visit Focus/Plan Next Note Type Treatment Note Next Visit Plan Continue to progress ther ex as tolerated.
--- NOTE | 2018-06-30 09:44 | PT.OTN ---
Current Diagnoses Other abnormalities of gait and mobility (06/30/18) Unspecified abnormalities of gait and mobility (06/30/18) Physical Therapy Treatment Note PT-OP-A Visit Information Start: 05/12/18 10:30 Freq: Status: Active Protocol: Document 06/30/18 09:00 SAK (Rec: 06/30/18 09:44 SAK [id number]) Out-Patient Physical Therapy Visit Information Visit Information Visit Type Treatment Note Visit Start Time 09:00 Visit Stop Time 09:45 Total Visit Minutes 45 Visit Number 9 Number of LINE UP MACHINE OPERATOR Visits 0 Evaluation Information Evaluation Date 05/12/18 PT-OP-B Current Condition Start: 05/12/18 10:30 Freq: Status: Active Protocol: Document 05/12/18 09:45 MDD (Rec: 05/12/18 10:54 MDD [email or web address]) Current Condition History of Current Condition Onset Date Last few years Current Complaints worsening balance, multiple falls in the last 6 months History of Current Condition Incidious onset worsening balance. Reports she has to be very careful when bending forward or she will topple over. Also notes having difficulty going up/down stairs etc. Has one full flight of stairs in her home to get up to her bedroom, uses left hand railing. Lives alone. Has a daughter in [place] and a son in [place]. Denies dizziness, just feels like her balance is off. Prior Treatments and Tests auditory tests (nml) Future Testing and Treatments Planned NA Treatment Goals Patient/Caregiver Goals Decrease falls, improve balance, improve ability to ascend/descend stairs Prior Functional Status Baseline Function- ADL's Independent Baseline Function- Mobility Independent Baseline Function- Gait independent no AD Current Functional Impairments (Reported) Functional Limitations- Mobility/Gait Increasing falls, ascending/ descending stairs Functional Limitations- Recreation/ gardening - has to be extra Hobbies cautious to avoid falls PT-OP-C Subjective Start: 05/12/18 10:30 Freq: Status: Active Protocol: Document 06/30/18 09:00 SAK (Rec: 06/30/18 09:44 SAK [id number]) OP-PT Subjective Patient Comments Patient Comments I try to work the exercises into my day PT-OP-D Balance Start: 05/12/18 10:30 Freq: Status: Active Protocol: Document 05/12/18 09:45 MDD (Rec: 05/12/18 10:54 MDD [email or web address]) OP-PT Balance Assessment Sitting Balance Static Sitting Balance Ability Normal Dynamic Sitting Balance Ability Normal Standing Balance Static Standing Balance Ability Good Dynamic Standing Balance Ability Fair Balance Tests Staley Balance Test Staley Balance Test Score 44 Staley Impairment Rating 20 to 39% Impaired (Score 34- 44) Staley Balance Assessment Evaluation Sitting to Standing Ability Independent w/out Hands Unsupported Stance Safely- 2 minutes Sitting Unsupported, Feet on Floor Safely- 2 minutes Standing to Sitting Ability Assist, Control w/Hands Transfer Ability Safely, Hand Use Unsupported Stance- Eyes Closed Supervision, 10 seconds Unsupported Stance- Eyes Open Supervision to maintain Reaching Forward Standing Confidently, 10 inches Pick- Up Object From Floor Supervision Look Behind Shoulder - Standing Shifts Weight Well Turning 360 Degrees Turns slowly, but safely Unsupported Stance, Alternating Feet on 4 Steps w/Supervision Stair Unsupported Tandem Stance Small Step- 30 seconds Unilateral Leg Stance Lifts Leg/Holds 5-10 secs Total Score Staley Total Score (out of 56 points) 44 Baez Fall Scale Copyright Permission Nestor THORPE, Nestor RM, Ti SJ. Development of a scale to identify the fall- prone patient. Can J Aging 1989;8;366-7. Fiorella Baez (2009). Preventing patient falls. (2nd ed). [place]: Foote. PT-OP-E Functional Tests Start: 05/12/18 10:30 Freq: Status: Active Protocol: Document 05/19/18 09:00 SAK (Rec: 05/19/18 11:58 SAK [id number]) Functional Tests Dynamic Gait Index (DGI) DGI Impairment Rating 40 to <60% Impaired (Score 10- 14) PT-OP-G Mobility & Gait Start: 05/12/18 10:30 Freq: Status: Active Protocol: Document 05/12/18 09:45 MDD (Rec: 05/12/18 10:54 MDD [email or web address]) OP Mobility Evaluation Bed Mobility Rolling independent Supine to and from Sit independent OP Gait Assessment Gait Gait Assistance Required: Independent Distance (Feet) (feet) 30 Assistive Devices Assistive Device None PT-OP-M Strength Start: 05/12/18 10:30 Freq: Status: Active Protocol: Document 05/12/18 09:45 MDD (Rec: 05/12/18 10:54 MDD [email or web address]) Hip Strength Hip Manual Muscle Testing Right Flexion (L2) 5 Normal Extension (S1) 4+ Good+ Abduction 3+ Fair+ External Rotation 5 Normal Internal Rotation 5 Normal Left Flexion (L2) 4 Good Extension (S1) 4+ Good+ Abduction 3+ Fair+ External Rotation 5 Normal Internal Rotation 5 Normal Knee Strength Knee Manual Muscle Testing Right Flexion (S2) 5 Normal Extension (L3) 5 Normal Left Flexion (S2) 5 Normal Extension (L3) 5 Normal PT-OP-Q Treatments Start: 05/12/18 10:30 Freq: Status: Active Protocol: Document 06/30/18 09:00 [facility] (Rec: 06/30/18 09:44 [facility] [id number]) Cardio Equipment Recumbent Elliptical ([employer]odex) Duration (Minutes) 8 Resistance 5 Seat Position 1 Gym Equipment Shuttle Balance 2 Details balloon volleyball Comments chains yellow 1 Details standing balance and wt shift EO Comments chains red, fwd/bck, side to side Therapeutic Exercises Standing Exercises 3 Standing Exercise Name squat Equipment Used chair Reps/Minutes 20x 2 Standing Exercise Name Heel Raises - progressed to single leg Side bilateral Reps/Minutes 2 x 20 each Comments Using a counter for balance Other Exercises 3 Other Exercise Name mini lunge Side bilateral Reps/Minutes 15 Comments single UE support on rail 2 Other Exercise Name Resisted Forward/Retro ambulation Resistance Yellow Equipment Used T-band 1 Other Exercise Name Resisted Side-stepping Resistance Yellow Equipment Used T-band Neuro Re-Education Treatment Balance Activities 6 Details lunge walk PT-OP-T Assessment and Plan Start: 05/12/18 10:30 Freq: Status: Active Protocol: Document 06/30/18 09:00 [facility] (Rec: 06/30/18 09:44 [facility] [id number]) Physical Therapy Assessment Goals Four Impairment Balance Short Term Goal (STG) Pt to begin aerobic exercise program including walking on level ground for at least 30 minutes 5 days a week. STG Duration 6 weeks. Three Impairment Balance [facility] Goal (LTG) Pt to report no falls. LTG Duration 12 weeks Two Impairment Balance Short Term Goal (STG) Improve Staley Balance Score to 52/56 to demonstrate decreased fall risk. STG Duration 8 weeks One Impairment Strength Short Term Goal (STG) Improve LE strength to 5/5 in major muscle groups. STG Duration 8 weeks Progress Towards Goals Progress Towards Goals Progressing Toward Goals Assessment Summary Assessment improving balance and gait stability Physical Therapy Plan Frequency and Duration Frequency of Treatment 2x/Week Duration of Treatment 12 weeks Plan of Care Start Date 05/12/18 Plan of Care End Date 08/04/18 Therapeutic Interventions Therapeutic Interventions Balance Training Coordination Training Gait Training Home Exercise Program Neuromuscular Re-education Self-Care/Home Management Therapeutic Activities Therapeutic Exercises Next Visit Focus/Plan Next Note Type Treatment Note Next Visit Plan Progression of gait and balance activities.
--- NOTE | 2018-07-03 12:43 | PT.OTN ---
Current Diagnoses Other abnormalities of gait and mobility (07/03/18) Unspecified abnormalities of gait and mobility (07/03/18) Physical Therapy Treatment Note PT-OP-A Visit Information Start: 05/12/18 10:30 Freq: Status: Active Protocol: Document 07/03/18 12:00 DCW (Rec: 07/03/18 12:43 DCW [id number]) Out-Patient Physical Therapy Visit Information Visit Information Visit Type Treatment Note Visit Start Time 12:00 Visit Stop Time 12:45 Total Visit Minutes 45 Visit Number 10 Number of ROOM DESIGNER Visits 0 Evaluation Information Evaluation Date 05/12/18 PT-OP-B Current Condition Start: 05/12/18 10:30 Freq: Status: Active Protocol: Document 05/12/18 09:45 MDD (Rec: 05/12/18 10:54 MDD [email or web address]) Current Condition History of Current Condition Onset Date Last few years Current Complaints worsening balance, multiple falls in the last 6 months History of Current Condition Incidious onset worsening balance. Reports she has to be very careful when bending forward or she will topple over. Also notes having difficulty going up/down stairs etc. Has one full flight of stairs in her home to get up to her bedroom, uses left hand railing. Lives alone. Has a daughter in [place] and a son in [place]. Denies dizziness, just feels like her balance is off. Prior Treatments and Tests auditory tests (nml) Future Testing and Treatments Planned NA Treatment Goals Patient/Caregiver Goals Decrease falls, improve balance, improve ability to ascend/descend stairs Prior Functional Status Baseline Function- ADL's Independent Baseline Function- Mobility Independent Baseline Function- Gait independent no AD Current Functional Impairments (Reported) Functional Limitations- Mobility/Gait Increasing falls, ascending/ descending stairs Functional Limitations- Recreation/ gardening - has to be extra Hobbies cautious to avoid falls PT-OP-C Subjective Start: 05/12/18 10:30 Freq: Status: Active Protocol: Document 07/03/18 12:00 DCW (Rec: 07/03/18 12:43 DCW [id number]) OP-PT Subjective Patient Comments Patient Comments I wish I had a little more discipline to do my exercises more regularly. PT-OP-D Balance Start: 05/12/18 10:30 Freq: Status: Active Protocol: Document 05/12/18 09:45 MDD (Rec: 05/12/18 10:54 MDD [email or web address]) OP-PT Balance Assessment Sitting Balance Static Sitting Balance Ability Normal Dynamic Sitting Balance Ability Normal Standing Balance Static Standing Balance Ability Good Dynamic Standing Balance Ability Fair Balance Tests Staley Balance Test Staley Balance Test Score 44 Staley Impairment Rating 20 to 39% Impaired (Score 34- 44) Staley Balance Assessment Evaluation Sitting to Standing Ability Independent w/out Hands Unsupported Stance Safely- 2 minutes Sitting Unsupported, Feet on Floor Safely- 2 minutes Standing to Sitting Ability Assist, Control w/Hands Transfer Ability Safely, Hand Use Unsupported Stance- Eyes Closed Supervision, 10 seconds Unsupported Stance- Eyes Open Supervision to maintain Reaching Forward Standing Confidently, 10 inches Pick- Up Object From Floor Supervision Look Behind Shoulder - Standing Shifts Weight Well Turning 360 Degrees Turns slowly, but safely Unsupported Stance, Alternating Feet on 4 Steps w/Supervision Stair Unsupported Tandem Stance Small Step- 30 seconds Unilateral Leg Stance Lifts Leg/Holds 5-10 secs Total Score Staley Total Score (out of 56 points) 44 Baez Fall Scale Copyright Permission Nestor JM, Nestor RM, Ti SJ. Development of a scale to identify the fall- prone patient. Can J Aging 1989;8;366-7. Fiorella Baez (2009). Preventing patient falls. (2nd ed). [place]: [employer]. PT-OP-E Functional Tests Start: 05/12/18 10:30 Freq: Status: Active Protocol: Document 05/19/18 09:00 SAK (Rec: 05/19/18 11:58 SAK [id number]) Functional Tests Dynamic Gait Index (DGI) DGI Impairment Rating 40 to <60% Impaired (Score 10- 14) PT-OP-G Mobility & Gait Start: 05/12/18 10:30 Freq: Status: Active Protocol: Document 05/12/18 09:45 MDD (Rec: 05/12/18 10:54 MDD [email or web address]) OP Mobility Evaluation Bed Mobility Rolling independent Supine to and from Sit independent OP Gait Assessment Gait Gait Assistance Required: Independent Distance (Feet) 30 Assistive Devices Assistive Device None PT-OP-M Strength Start: 05/12/18 10:30 Freq: Status: Active Protocol: Document 05/12/18 09:45 MDD (Rec: 05/12/18 10:54 MDD [email or web address]) Hip Strength Hip Manual Muscle Testing Right Flexion (L2) 5 Normal Extension (S1) 4+ Good+ Abduction 3+ Fair+ External Rotation 5 Normal Internal Rotation 5 Normal Left Flexion (L2) 4 Good Extension (S1) 4+ Good+ Abduction 3+ Fair+ External Rotation 5 Normal Internal Rotation 5 Normal Knee Strength Knee Manual Muscle Testing Right Flexion (S2) 5 Normal Extension (L3) 5 Normal Left Flexion (S2) 5 Normal Extension (L3) 5 Normal PT-OP-Q Treatments Start: 05/12/18 10:30 Freq: Status: Active Protocol: Document 07/03/18 12:00 DCW (Rec: 07/03/18 12:43 DCW [id number]) Cardio Equipment Recumbent Elliptical ([employer]) Duration (Minutes) 7 Resistance 5 Seat Position 1 Gym Equipment Shuttle Balance 2 Details balloon volleyball Comments chains yellow 1 Details standing balance and wt shift EO Comments chains red, fwd/bck, side to side Therapeutic Exercises Other Exercises 2 Other Exercise Name Resisted Forward/Retro ambulation Resistance Yellow Equipment Used T-band 1 Other Exercise Name Resisted Side-stepping Resistance Yellow Equipment Used T-band Neuro Re-Education Treatment Balance Activities 8 Details Semi-tandem stance Surface Blue/Green foam Comments Eyes open/closed 6 Details lunge walk PT-OP-T Assessment and Plan Start: 05/12/18 10:30 Freq: Status: Active Protocol: Document 07/03/18 12:00 DCW (Rec: 07/03/18 12:43 DCW [id number]) Physical Therapy Assessment Impairments Impairments Balance Functional Mobility Gait Strength Goals Four Impairment Balance Short Term Goal (STG) Pt to begin aerobic exercise program including walking on level ground for at least 30 minutes 5 days a week. STG Duration 6 weeks. Three Impairment Balance Retirement Goal (LTG) Pt to report no falls. LTG Duration 12 weeks Two Impairment Balance Short Term Goal (STG) Improve Staley Balance Score to 52/56 to demonstrate decreased fall risk. STG Duration 8 weeks One Impairment Strength Short Term Goal (STG) Improve LE strength to 5/5 in major muscle groups. STG Duration 8 weeks Assessment Summary Assessment Pt displays improved overall stability, decreased incidence of LOB. Physical Therapy Plan Frequency and Duration Frequency of Treatment 2x/Week Duration of Treatment 12 weeks Plan of Care Start Date 05/12/18 Plan of Care End Date 08/04/18 Therapeutic Interventions Therapeutic Interventions Balance Training Coordination Training Gait Training Home Exercise Program Neuromuscular Re-education Self-Care/Home Management Therapeutic Activities Therapeutic Exercises Next Visit Focus/Plan Next Note Type Treatment Note Next Visit Plan Progression of gait and balance activities.
--- NOTE | 2018-07-07 09:44 | PT.OTN ---
Current Diagnoses Other abnormalities of gait and mobility (07/07/18) Unspecified abnormalities of gait and mobility (07/07/18) Physical Therapy Treatment Note PT-OP-A Visit Information Start: 05/12/18 10:30 Freq: Status: Active Protocol: Document 07/07/18 09:08 SAK (Rec: 07/07/18 09:44 SAK [id number]) Out-Patient Physical Therapy Visit Information Visit Information Visit Type Treatment Note Visit Start Time 09:00 Visit Stop Time 09:45 Total Visit Minutes 45 Visit Number 11 Number of INSPECTOR [employer] Visits 0 Evaluation Information Evaluation Date 05/12/18 PT-OP-B Current Condition Start: 05/12/18 10:30 Freq: Status: Active Protocol: Document 05/12/18 09:45 MDD (Rec: 05/12/18 10:54 MDD [email or web address]) Current Condition History of Current Condition Onset Date Last few years Current Complaints worsening balance, multiple falls in the last 6 months History of Current Condition Incidious onset worsening balance. Reports she has to be very careful when bending forward or she will topple over. Also notes having difficulty going up/down stairs etc. Has one full flight of stairs in her home to get up to her bedroom, uses left hand railing. Lives alone. Has a daughter in [place] and a son in [place]. Denies dizziness, just feels like her balance is off. Prior Treatments and Tests auditory tests (nml) Future Testing and Treatments Planned NA Treatment Goals Patient/Caregiver Goals Decrease falls, improve balance, improve ability to ascend/descend stairs Prior Functional Status Baseline Function- ADL's Independent Baseline Function- Mobility Independent Baseline Function- Gait independent no AD Current Functional Impairments (Reported) Functional Limitations- Mobility/Gait Increasing falls, ascending/ descending stairs Functional Limitations- Recreation/ gardening - has to be extra Hobbies cautious to avoid falls PT-OP-C Subjective Start: 05/12/18 10:30 Freq: Status: Active Protocol: Document 07/07/18 09:08 SAK (Rec: 07/07/18 09:44 SAK [id number]) OP-PT Subjective Patient Comments Patient Comments Doing a little better with exercises at home. PT-OP-D Balance Start: 05/12/18 10:30 Freq: Status: Active Protocol: Document 05/12/18 09:45 MDD (Rec: 05/12/18 10:54 MDD [email or web address]) OP-PT Balance Assessment Sitting Balance Static Sitting Balance Ability Normal Dynamic Sitting Balance Ability Normal Standing Balance Static Standing Balance Ability Good Dynamic Standing Balance Ability Fair Balance Tests Staley Balance Test Staley Balance Test Score 44 Staley Impairment Rating 20 to 39% Impaired (Score 34- 44) Staley Balance Assessment Evaluation Sitting to Standing Ability Independent w/out Hands Unsupported Stance Safely- 2 minutes Sitting Unsupported, Feet on Floor Safely- 2 minutes Standing to Sitting Ability Assist, Control w/Hands Transfer Ability Safely, Hand Use Unsupported Stance- Eyes Closed Supervision, 10 seconds Unsupported Stance- Eyes Open Supervision to maintain Reaching Forward Standing Confidently, 10 inches Pick- Up Object From Floor Supervision Look Behind Shoulder - Standing Shifts Weight Well Turning 360 Degrees Turns slowly, but safely Unsupported Stance, Alternating Feet on 4 Steps w/Supervision Stair Unsupported Tandem Stance Small Step- 30 seconds Unilateral Leg Stance Lifts Leg/Holds 5-10 secs Total Score Staley Total Score (out of 56 points) 44 Baez Fall Scale Copyright Permission Nestor THORPE, Nestor RM, Ti SJ. Development of a scale to identify the fall- prone patient. Can J Aging 1989;8;366-7. Fiorella Baez (2009). Preventing patient falls. (2nd ed). [place]: [employer]. PT-OP-E Functional Tests Start: 05/12/18 10:30 Freq: Status: Active Protocol: Document 05/19/18 09:00 SAK (Rec: 05/19/18 11:58 SAK [id number]) Functional Tests Dynamic Gait Index (DGI) DGI Impairment Rating 40 to <60% Impaired (Score 10- 14) PT-OP-G Mobility & Gait Start: 05/12/18 10:30 Freq: Status: Active Protocol: Document 05/12/18 09:45 MDD (Rec: 05/12/18 10:54 MDD [email or web address]) OP Mobility Evaluation Bed Mobility Rolling independent Supine to and from Sit independent OP Gait Assessment Gait Gait Assistance Required: Independent Distance (Feet) 30 Assistive Devices Assistive Device None PT-OP-M Strength Start: 05/12/18 10:30 Freq: Status: Active Protocol: Document 05/12/18 09:45 MDD (Rec: 05/12/18 10:54 MDD [email or web address]) Hip Strength Hip Manual Muscle Testing Right Flexion (L2) 5 Normal Extension (S1) 4+ Good+ Abduction 3+ Fair+ External Rotation 5 Normal Internal Rotation 5 Normal Left Flexion (L2) 4 Good Extension (S1) 4+ Good+ Abduction 3+ Fair+ External Rotation 5 Normal Internal Rotation 5 Normal Knee Strength Knee Manual Muscle Testing Right Flexion (S2) 5 Normal Extension (L3) 5 Normal Left Flexion (S2) 5 Normal Extension (L3) 5 Normal PT-OP-Q Treatments Start: 05/12/18 10:30 Freq: Status: Active Protocol: Document 07/07/18 09:08 [facility] (Rec: 07/07/18 09:44 [facility] [id number]) Cardio Equipment Recumbent Elliptical ([employer]) Duration (Minutes) 10 Resistance 5 Seat Position 1 Gym Equipment Shuttle Balance 2 Details balloon volleyball Comments chains yellow 1 Details standing balance and wt shift EO Comments chains red, fwd/bck, side to side Therapeutic Exercises Other Exercises 2 Other Exercise Name Resisted Forward/Retro ambulation Resistance Yellow Equipment Used T-band 1 Other Exercise Name Resisted Side-stepping Resistance Yellow Equipment Used T-band Therapeutic Activity Therapeutic Activity floor transfer Reps/Minutes 1 Comments SBA, use of railing Neuro Re-Education Treatment Balance Activities 8 Details Semi-tandem stance Surface Blue/Green foam Comments Eyes open/closed 6 Details lunge walk, lunges PT-OP-T Assessment and Plan Start: 05/12/18 10:30 Freq: Status: Active Protocol: Document 07/07/18 09:08 [facility] (Rec: 07/07/18 09:44 [facility] [id number]) Physical Therapy Assessment Goals Four Impairment Balance Short Term Goal (STG) Pt to begin aerobic exercise program including walking on level ground for at least 30 minutes 5 days a week. STG Duration 6 weeks. Three Impairment Balance Interpreter And Translator Goal (LTG) Pt to report no falls. LTG Duration 12 weeks Two Impairment Balance Short Term Goal (STG) Improve Staley Balance Score to 52/56 to demonstrate decreased fall risk. STG Duration 8 weeks One Impairment Strength Short Term Goal (STG) Improve LE strength to 5/5 in major muscle groups. STG Duration 8 weeks Assessment Summary Assessment Improving compliance to HEP. Physical Therapy Plan Frequency and Duration Frequency of Treatment 2x/Week Duration of Treatment 12 weeks Plan of Care Start Date 05/12/18 Plan of Care End Date 10/16/18 Therapeutic Interventions Therapeutic Interventions Balance Training Coordination Training Gait Training Home Exercise Program Neuromuscular Re-education Self-Care/Home Management Therapeutic Activities Therapeutic Exercises Next Visit Focus/Plan Next Note Type Treatment Note Next Visit Plan Review HEP, update as indicated. Discuss POC; d/c vs continued PT
--- NOTE | 2018-07-09 13:08 | PT.OTN ---
Current Diagnoses Other abnormalities of gait and mobility (07/09/18) Unspecified abnormalities of gait and mobility (07/09/18) Physical Therapy Treatment Note PT-OP-A Visit Information Start: 05/12/18 10:30 Freq: Status: Active Protocol: Document 07/09/18 11:25 SAK (Rec: 07/09/18 12:01 SAK [id number]) Out-Patient Physical Therapy Visit Information Visit Information Visit Type Treatment Note Visit Start Time 11:15 Visit Stop Time 12:00 Total Visit Minutes 45 Visit Number 12 Number of CLINICAL TRAINER Visits 0 Evaluation Information Evaluation Date 05/12/18 PT-OP-B Current Condition Start: 05/12/18 10:30 Freq: Status: Active Protocol: Document 05/12/18 09:45 MDD (Rec: 05/12/18 10:54 MDD [email or web address]) Current Condition History of Current Condition Onset Date Last few years Current Complaints worsening balance, multiple falls in the last 6 months History of Current Condition Incidious onset worsening balance. Reports she has to be very careful when bending forward or she will topple over. Also notes having difficulty going up/down stairs etc. Has one full flight of stairs in her home to get up to her bedroom, uses left hand railing. Lives alone. Has a daughter in [place] and a son in [place]. Denies dizziness, just feels like her balance is off. Prior Treatments and Tests auditory tests (nml) Future Testing and Treatments Planned NA Treatment Goals Patient/Caregiver Goals Decrease falls, improve balance, improve ability to ascend/descend stairs Prior Functional Status Baseline Function- ADL's Independent Baseline Function- Mobility Independent Baseline Function- Gait independent no AD Current Functional Impairments (Reported) Functional Limitations- Mobility/Gait Increasing falls, ascending/ descending stairs Functional Limitations- Recreation/ gardening - has to be extra Hobbies cautious to avoid falls PT-OP-C Subjective Start: 05/12/18 10:30 Freq: Status: Active Protocol: Document 07/09/18 11:25 SAK (Rec: 07/09/18 12:01 SAK [id number]) OP-PT Subjective Patient Comments Patient Comments Getting better. Feels ready to do HEP on own. PT-OP-D Balance Start: 05/12/18 10:30 Freq: Status: Active Protocol: Document 05/12/18 09:45 MDD (Rec: 05/12/18 10:54 MDD [email or web address]) OP-PT Balance Assessment Sitting Balance Static Sitting Balance Ability Normal Dynamic Sitting Balance Ability Normal Standing Balance Static Standing Balance Ability Good Dynamic Standing Balance Ability Fair Balance Tests Staley Balance Test Staley Balance Test Score 44 Staley Impairment Rating 20 to 39% Impaired (Score 34- 44) Staley Balance Assessment Evaluation Sitting to Standing Ability Independent w/out Hands Unsupported Stance Safely- 2 minutes Sitting Unsupported, Feet on Floor Safely- 2 minutes Standing to Sitting Ability Assist, Control w/Hands Transfer Ability Safely, Hand Use Unsupported Stance- Eyes Closed Supervision, 10 seconds Unsupported Stance- Eyes Open Supervision to maintain Reaching Forward Standing Confidently, 10 inches Pick- Up Object From Floor Supervision Look Behind Shoulder - Standing Shifts Weight Well Turning 360 Degrees Turns slowly, but safely Unsupported Stance, Alternating Feet on 4 Steps w/Supervision Stair Unsupported Tandem Stance Small Step- 30 seconds Unilateral Leg Stance Lifts Leg/Holds 5-10 secs Total Score Staley Total Score (out of 56 points) 44 Baez Fall Scale Copyright Permission Nestor THORPE, Nestor RM, Ti SJ. Development of a scale to identify the fall- prone patient. Can J Aging 1989;8;366-7. Fiorella Baez (2009). Preventing patient falls. (2nd ed). [place]: [employer]. PT-OP-E Functional Tests Start: 05/12/18 10:30 Freq: Status: Active Protocol: Document 05/19/18 09:00 SAK (Rec: 05/19/18 11:58 SAK [id number]) Functional Tests Dynamic Gait Index (DGI) DGI Impairment Rating 40 to <60% Impaired (Score 10- 14) PT-OP-G Mobility & Gait Start: 05/12/18 10:30 Freq: Status: Active Protocol: Document 05/12/18 09:45 MDD (Rec: 05/12/18 10:54 MDD [email or web address]) OP Mobility Evaluation Bed Mobility Rolling independent Supine to and from Sit independent OP Gait Assessment Gait Gait Assistance Required: Independent Distance (Feet) 30 Assistive Devices Assistive Device None PT-OP-M Strength Start: 05/12/18 10:30 Freq: Status: Active Protocol: Document 05/12/18 09:45 MDD (Rec: 05/12/18 10:54 MDD [email or web address]) Hip Strength Hip Manual Muscle Testing Right Flexion (L2) 5 Normal Extension (S1) 4+ Good+ Abduction 3+ Fair+ External Rotation 5 Normal Internal Rotation 5 Normal Left Flexion (L2) 4 Good Extension (S1) 4+ Good+ Abduction 3+ Fair+ External Rotation 5 Normal Internal Rotation 5 Normal Knee Strength Knee Manual Muscle Testing Right Flexion (S2) 5 Normal Extension (L3) 5 Normal Left Flexion (S2) 5 Normal Extension (L3) 5 Normal PT-OP-Q Treatments Start: 05/12/18 10:30 Freq: Status: Active Protocol: Document 07/09/18 11:25 [facility] (Rec: 07/09/18 12:01 [facility] [id number]) Cardio Equipment Recumbent Elliptical ([employer]) Duration (Minutes) 15 Resistance 5 Seat Position 1 Gym Equipment Shuttle Balance 2 Details balloon volleyball Comments chains yellow 1 Details standing balance and wt shift EO Comments chains red, fwd/bck, side to side Therapeutic Exercises Standing Exercises 3 Standing Exercise Name squat Equipment Used chair Reps/Minutes 20x 2 Standing Exercise Name Heel Raises - progressed to single leg Side bilateral Reps/Minutes 2 x 20 each Comments Using a counter for balance 1 Standing Exercise Name hip abd, hip ext Reps/Minutes 121x Other Exercises 3 Other Exercise Name mini lunge Side bilateral Reps/Minutes 15 Comments single UE support on rail Neuro Re-Education Treatment Balance Activities 3 Details stepping over hurdles fwd and sideways Surface foam Equipment 6 hurdles Comments minimal UE support PT-OP-T Assessment and Plan Start: 05/12/18 10:30 Freq: Status: Active Protocol: Document 07/09/18 11:25 [facility] (Rec: 07/09/18 13:08 [facility] [id number]) Physical Therapy Assessment Goals Four Impairment Balance Short Term Goal (STG) Pt to begin aerobic exercise program including walking on level ground for at least 30 minutes 5 days a week. STG Duration 6 weeks. Three Impairment Balance Longterm Goal (LTG) Pt to report no falls. LTG Duration 12 weeks Two Impairment Balance Short Term Goal (STG) Improve Staley Balance Score to 52/56 to demonstrate decreased fall risk. STG Duration 8 weeks One Impairment Strength Short Term Goal (STG) Improve LE strength to 5/5 in major muscle groups. STG Duration 8 weeks Progress Towards Goals Progress Towards Goals Progressing Toward Goals Assessment Summary Assessment Should continue to progress with adherence to HEP. At this time patient to be discharged. Physical Therapy Plan Discharge Physical Therapy Discharge Reasons Goals Met Discharge Comments Patient to continue with HEP.
== END 2018-10-05 11:15 ==
LOC: PHYS 11:15
PROVIDERS: PCP Physician Assistant; Visit Provider Physician Assistant
DX: R26.89 Other abnormalities of gait and mobility (principal); R26.9 Unspecified abnormalities of gait and mobility
CPT/HCPCS: 97110; 97112; 97161; 97530; 97535

== ENCOUNTER 2018-08-05 13:30 | Outpatient (RCR) | payer MEDICARE, OTHER, SELFPAY | END 2018-10-05 16:33 | LOC: SP 13:30 | PROVIDERS: PCP Family Medicine; Visit Provider Family Medicine | DX: R41.89 Other symptoms and signs involving cognitive functions and awareness (principal) | CPT/HCPCS: 96125 ==

== ENCOUNTER → 2018-09-01 10:22 | Outpatient (CLI) | payer MEDICARE, OTHER, SELFPAY ==
[2018-09-01 11:08] LABS: Hematocrit 40.9 % (36-46); Hemoglobin 13.4 g/dL (12.0-16.0); Mean Corpuscular HGB Conc 32.7 % (30-36); Mean Corpuscular Hemoglobin 27.8 PG (26-34); Mean Corpuscular Volume 85.1 fL (80-100); Platelet Count 225 X10^3/uL (150-400); Red Cell Distribution Width 14.3 % (11.6-14.8); White Blood Cell Count 5.3 X10^3/uL (4.5-11.0)
[2018-09-01 11:28] LABS: Appearance Urine UA CLEAR; Bilirubin Urine UA NEGATIVE (NEGATIVE); Color Urine UA YELLOW; Glucose Urine UA NEGATIVE (Normal); Ketones Urine UA NEGATIVE (NEGATIVE); Leukocyte Esterase Urine UA 1+ (NEGATIVE); Nitrite Urine UA NEGATIVE (Negative); Occult Blood Urine UA TRACE-LYSED (Negative); Protein Urine UA NEGATIVE (Negative); Specific Gravity Urine UA 1.015 (1.000-1.035); Urobilinogen Urine UA 0.2 E.U./dL (0.2)
[2018-09-01 11:45] LABS: Bacteria Urine Few (2-10); Culture Indicated Urine Specimen Cultured; Mucus Urine 1+ (Negative); RBC Urine 1-5/HPF (0-5/HPF); Squamous Epithelial Cell Urine 1-5 /HPF; WBC Urine 1-5/HPF (0-5/HPF)
[2018-09-01 12:08] LABS: Alanine Aminotransferase 22 IU/L (9-52); Albumin 4.2 g/dL (3.5-5.0); Albumin Globulin Ratio 1.7 (1.0-2.8); Alkaline Phosphatase 83 U/L (38-126); Aspartate Aminotransferase 24 IU/L (14-36); BUN Creatinine Ratio 17.5 (6-22); Bilirubin Total 0.7 mg/dL (0.2-1.3); Blood Urea Nitrogen 14 mg/dL (7-17); Calcium 8.8 mg/dL (8.4-10.2); Carbon Dioxide 26 mmol/L (22-32); Chloride 102 mmol/L (98-107); Cholesterol 212 mg/dL (140-199); Estimated Glomerular Filt Rate > 60.0 mL/min (>60); Globulin 2.5 g/dL (1.7-4.1); Glucose 98 mg/dL (80-110); HDL Cholesterol 58 mg/dL (40-60); HEMOLYSIS < 15 (0-50); LDL Cholesterol Calculated 131 mg/dL (<100); Potassium 4.4 mmol/L (3.4-5.1); Sodium 140 mmol/L (137-145); Total Protein 6.7 g/dL (6.3-8.2); Triglycerides 113 mg/dL (35-150)
[2018-09-01 12:18] LABS: Free T3, Triiodothyronine Free 3.29 pg/mL (2.77-5.27); Free T4, Direct Thyroxine 1.38 ng/dL (0.78-2.19)
== END ==
PROVIDERS: PCP Family Medicine; Visit Provider Family Medicine
DX: E03.9 Hypothyroidism, unspecified (principal); Z00.00 Encounter for general adult medical examination without abnormal findings; Z51.81 Encounter for therapeutic drug level monitoring
CPT/HCPCS: 36415; 80053; 80061; 81001; 84439; 84443; 84481; 85027; 87086

== ENCOUNTER → 2019-07-30 13:58 | Outpatient (CLI) | payer OTHER, SELFPAY ==
[2019-07-30 14:38] LABS: Add Manual Diff / Slide Review NO; Basophils Absolute Auto 0 /uL (0-100); Basophils Percent Auto 0.2 % (0-2); Eosinophils Absolute Auto 100 /uL (0-450); Eosinophils Percent Auto 2.2 % (2-4); Hematocrit 41.6 % (36-46); Hemoglobin 13.4 g/dL (12.0-16.0); Lymphocytes Absolute Auto 1200 /uL (1100-4500); Lymphocytes Percent Auto 17.6 % (25-40); Mean Corpuscular HGB Conc 32.3 % (30-36); Mean Corpuscular Hemoglobin 28.3 PG (26-34); Mean Corpuscular Volume 87.6 fL (80-100); Monocytes Absolute Auto 700 /uL (0-900); Monocytes Percent Auto 10.6 % (3-14); Neutrophils Absolute Auto 4700 /uL (1500-7000); Neutrophils Percent Auto 69.4 % (50-75); Platelet Count 229 X10^3/uL (150-400); Red Blood Cell Count 4.75 X10^6/uL (4.0-5.2); Red Cell Distribution Width 14.2 % (11.6-14.8); White Blood Cell Count 6.8 X10^3/uL (4.5-11.0)
[2019-07-30 16:06] LABS: Alanine Aminotransferase 25 IU/L (9-52); Albumin 4.2 g/dL (3.5-5.0); Albumin Globulin Ratio 1.6 (1.0-2.8); Alkaline Phosphatase 112 U/L (38-126); Aspartate Aminotransferase 25 IU/L (14-36); BUN Creatinine Ratio 13.8 (6-22); Bilirubin Total 0.8 mg/dL (0.2-1.3); Blood Urea Nitrogen 11 mg/dL (7-17); Calcium 9.5 mg/dL (8.4-10.2); Carbon Dioxide 27 mmol/L (22-32); Chloride 99 mmol/L (98-107); Cholesterol 235 mg/dL (140-199); Estimated Glomerular Filt Rate > 60.0 mL/min (>60); Globulin 2.6 g/dL (1.7-4.1); Glucose 85 mg/dL (80-110); HDL Cholesterol 64 mg/dL (40-60); HEMOLYSIS < 15 (0-50); LDL Cholesterol Calculated 137 mg/dL (<100); Sodium 136 mmol/L (137-145); Total Protein 6.8 g/dL (6.3-8.2); Triglycerides 172 mg/dL (35-150)
[2019-07-30 16:07] LABS: Potassium 5.5 mmol/L (3.4-5.1)
[2019-07-30 16:18] LABS: Free T3, Triiodothyronine Free 3.45 pg/mL (2.77-5.27); Free T4, Direct Thyroxine 1.41 ng/dL (0.78-2.19)
[2019-07-30 16:32] LABS: Thyroid Stimulating Hormone 0.24 uIU/mL (0.47-4.68)
== END ==
PROVIDERS: PCP Family Medicine; Visit Provider Family Medicine
DX: Z51.81 Encounter for therapeutic drug level monitoring (principal); E03.9 Hypothyroidism, unspecified; E05.90 Thyrotoxicosis, unspecified without thyrotoxic crisis or storm
CPT/HCPCS: 36415; 80053; 80061; 84439; 84443; 84481; 85025

== ENCOUNTER 2019-08-06 07:41 | Day surgery (SDC) | payer OTHER, SELFPAY ==
[2019-08-05 10:03] VITALS: BMI 29.0
[2019-08-06] VITALS (8 sets, daily range): BP systolic 133–152; BP diastolic 58–81; PULSE 81–92; RESP 14–18; TEMP 36.2–36.7; O2SAT 94–98; BMI 29.0
[2019-08-06] MEDS: LACTATED RINGERS 1,000 ML 100 ML IV (08:27)
[2019-08-06] MEDS: CEFAZOLIN 1 GM/50 ML FROZ.PIGGY IV (09:00)
--- NOTE | 2019-08-06 09:02 | P.OP_ITS ---
Operative Date/Time/Diagnoses Date of procedure: 08/06/19 Time of procedure: 09:02 Pre-op diagnosis: Right foot bunion Post-op diagnosis: same Procedure & Clinicians Procedure: Right bunionectomy Same procedure as scheduled: Yes Indications: Painful bunion to the great toe. Conservative care failed to alleviate the pain and she wished to have surgical intervention at this time. She and her daughter present today and no contraindications to procedure at this time. She has not yet picked up the walker for her pwb status, and I reviewed o ptions with her daughter on how to get one but also if they are concerned about how to use it, we can write an rx for physical therapy nurse eval for it's use or switch to a wheelchair. Surgeon: Negrita Sampson Click Yes if Unassisted: Yes Anesthesia Type: General Operative Notes Closure Type: primary Specimen(s): none sent Estimated Blood Loss (mL): 20 Blood products transfused: none Procedure in detail: The patient was brought to the operating room and placed on the operating table in the supine position. Tourniquet was placed about the right ankle. Well padded appropriately aligned. After induction of general anesthesia the right foot and ankle were prepped and draped in the usual aseptic manner. The tourniquet was inflated. Incision was made over the 1st metatarsal phalangeal joint. The incision was deepened through subcutaneous tissues being careful to identify and retract all vital neurovascular structures. All bleeders were cauterized and ligated as necessary. A medial capsulotomy was performed to the 1st MTPJ exposing the enlarged medial eminence. Of note the metatarsal head showed some purple tinged area along the dorsal rim and medial rim along with some synovitis to the dorsal metatarsophalangeal joint. The saw was used to resect the medial eminence. The edges were reduced of their sharpness with a rasp. Through the same incision a lateral release was performed allowing the hallux to create more flexibility medially. The area was irrigated with copious amounts normal sterile saline. Redundant capsule was removed on the medial aspect of the 1st metatarsophalangeal joint and the hallux was aligned. Closure was performed using 4 0 Vicryl. The tourniquet was deflated and a prompt hyperemic response was seen to the foot. Subcutaneous closure was performed with Vicryl and nylon suture to the skin. The foot was dressed with a lightly compressive sterile dressing and splint in alignment. Patient was then placed in a postoperative shoe and transferred to PACU with vital signs stable. Complications: none Post-operative Condition: stable Disposition: PACU Plan for aftercare: Plan: Following a period of postoperative monitoring, the patient be discharged home on written and oral postoperative instructions including keeping the dressing dry and intact, avoiding significant ambulation on the foot, icing and elevating the foot when seated home. DVT prevention techniques have been reviewed. For the 1st postoperative visit the dressing will be changed and possible suture removal closer to the 2nd to 3rd wk.
--- NOTE | 2019-08-06 09:02 | PM.PREOP ---
Pre-operative Note Interval Note History & Physical reviewed/Exam performed by Physician: Yes Changes to H&P: No
--- NOTE | 2019-08-06 09:27 | SUR.OPER ---
Supine on padded OR bed, head on pillow, arms secured on padded arm boards at <90 degrees abduction, legs uncrossed, safety belt at thigh, bump under right hip, tape over blanket over left lower leg.
[2019-08-06] MEDS: LIDOCAINE 2% INJ SDV 5 ML INJ (09:34)
[2019-08-06] MEDS: BUPIVACAINE 0.5% W/ EPI (PF) VIAL 10 ML INJ (09:34)
== END 2019-08-06 11:27 | disposition home or self-care (01) ==
LOC: OR 07:42
PROVIDERS: PCP Family Medicine; Visit Provider Podiatrist
PROC: 0QBN0ZZ Excision of Right Metatarsal, Open Approach (ICD-10-PCS; CPT 28292; principal; 2019-08-06 09:15)
DX: M20.11 Hallux valgus (acquired), right foot (principal)
CPT/HCPCS: 28292; J1100; J2405; J2704; J3010

== ENCOUNTER → 2019-08-12 12:49 | Outpatient (CLI) | payer OTHER, SELFPAY ==
[2019-08-12 13:41] LABS: BUN Creatinine Ratio 12.9 (6-22); Blood Urea Nitrogen 9 mg/dL (7-17); Calcium 9.1 mg/dL (8.4-10.2); Carbon Dioxide 25 mmol/L (22-32); Chloride 102 mmol/L (98-107); Estimated Glomerular Filt Rate > 60.0 mL/min (>60); Glucose 105 mg/dL (80-110); HEMOLYSIS < 15 (0-50); Potassium 4.2 mmol/L (3.4-5.1); Sodium 137 mmol/L (137-145)
== END ==
PROVIDERS: PCP Family Medicine; Visit Provider Family Medicine
DX: E87.5 Hyperkalemia (principal)
CPT/HCPCS: 36415; 80048

== ENCOUNTER 2020-05-15 14:30 | Outpatient (RCR) | payer OTHER, SELFPAY ==
--- NOTE | 2020-03-14 18:44 | PT.OIE ---
Current Diagnoses Hallux valgus (acquired), right foot (03/14/20) Encounter for follow-up examination after completed treatment for conditions other than malignant neoplasm (03/14/20) Past Medical History (Last Updated 12/27/19 @ 15:03 by Dustin Ríos DO) Allergic rhinitis (Chronic) Arthritis (Chronic) Bunion of great toe of right foot (Acute) Chickenpox (Resolved) Depression (Chronic) Foot pain (Resolved) Fractures (Resolved) Hearing loss (Chronic) History of tremor (Acute) Hypothyroidism (Chronic) Measles (Resolved) Memory loss (Acute) Mumps (Resolved) Plantar fasciitis (Resolved) Rubella (Resolved) Tinnitus of both ears (Chronic) Past Surgical History (Last Reviewed 08/12/18 @ 11:37 by Zaira Hightower DO) Hx of toe surgery (Resolved) Hx of tonsillectomy (Resolved) Hx of tubal ligation (Resolved) Visit Care Team Role Provider Type Dustin Ríos DO Primary Care Provider Physician Specialty: Family Practice Address: [address] [place] [address], [id number] Email: [email or web address] Negrita Sampson DPM Attending Provider Physician Referring Provider Specialty: Podiatry Address: [address] [place] [address], [id number] Email: [email or web address] Physical Therapy Initial Evaluation PT-OP-A Visit Information Start: 03/14/20 10:15 Freq: Status: Active Protocol: Document 03/14/20 12:58 SAK (Rec: 03/14/20 13:51 SAK [id number]) Out-Patient Physical Therapy Visit Information Visit Information Visit Type Initial Evaluation Visit Start Time 13:00 Visit Stop Time 13:45 Total Visit Minutes 45 Visit Number 1 Evaluation Information Evaluation Date 03/14/20 Precautions Precautions PMH: arthritis, falls, [place], memory loss. PT-OP-B Current Condition Start: 03/14/20 10:15 Freq: Status: Active Protocol: Document 03/14/20 12:58 SAK (Rec: 03/14/20 13:51 SAK [id number]) Current Condition History of Current Condition Onset Date 08/06/19 Current Complaints stiffness of toe, balance difficulty History of Current Condition right bunionectomy 08/06/19. States she feels it went well, better than before surgery but is now unable to actively separate great toe from second , having difficulty with balance. Has ordered a cane but not using it. Bunion on left foot as well, thinks may need have surgery. Future Testing and Treatments Planned Potential bunionectomy left. Treatment Goals Patient/Caregiver Goals improve balance, flexibility, and alignment of right foot. Prior Functional Status Baseline Function- ADL's Modified Independent Baseline Function- Mobility Modified Independent Baseline Function- Gait modified indep Baseline Function- Work/School retired Baseline Function- Recreation/Hobbies gardening Current Functional Impairments (Reported) Functional Limitations- ADL's more difficulty with balance Functional Limitations- Mobility/Gait not able to take walks for exercise Functional Limitations- Recreation/ gardening difficult due to Hobbies balance dysfunction. Personal Factors Other Personal Factors That May Effect poor memory, dyskinesia Therapy/Recovery PT-OP-C Subjective Start: 03/14/20 10:15 Freq: Status: Active Protocol: Document 03/14/20 12:58 [facility] (Rec: 03/14/20 14:38 [facility] [id number]) Patient Questionnaires Lower Extremity Functional Scale LEFS Score 85 OP-PT Pain Assessment Pain Assessment Grid Paper Pain Assessment Grid Completed Yes Location great toe Intensity 4 PT-OP-D Balance Start: 03/14/20 10:15 Freq: Status: Active Protocol: Document 03/14/20 12:58 [facility] (Rec: 03/14/20 18:43 [facility] [id number]) OP-PT Balance Assessment Sitting Balance Static Sitting Balance Ability Normal Standing Balance Static Standing Balance Ability Normal Balance Tests Single Limb Standing Single Limb- Right unable Single Limb- Left unable Semi-Tandem Standing Semi-Tandem Standing Balance min assist Tandem Tandem Standing mod assist Baez Fall Scale Copyright Permission PT-OP-F Manual Assessment Start: 03/14/20 10:15 Freq: Status: Active Protocol: Document 03/14/20 12:58 [facility] (Rec: 03/14/20 18:43 [facility] [id number]) Manual Assessments Joint Mobility Assessment Joint Mobility Assessment Decreased AP glides right PIP and DIP great toe PT-OP-G Mobility & Gait Start: 03/14/20 10:15 Freq: Status: Active Protocol: Document 03/14/20 12:58 [facility] (Rec: 03/14/20 18:43 [facility] [id number]) OP Gait Assessment Gait Gait Assistance Required: Independent Comments Gait Comments decreased balance evident with gait with increased lateral sway, decreased foot clearance and stride length PT-OP-J Posture/Palpation/Skin Start: 03/14/20 10:15 Freq: Status: Active Protocol: Document 03/14/20 12:58 [facility] (Rec: 03/14/20 18:43 [facility] [id number]) Skin Assessment Incisional Assessment Incision Appearance/Comments well-healed dorsum right great toe Other Assessments Skin Assessment Comments decreased scar mobility right toe PT-OP-K Range of Motion Start: 03/14/20 10:15 Freq: Status: Active Protocol: Document 03/14/20 12:58 [facility] (Rec: 03/14/20 18:43 [facility] [id number]) Hip Goniometric Range of Motion Hip ROM Limitations Comments WFL luba Knee Goniometric Range of Motion Knee ROM Limitations Comments WFL luba Ankle and Foot Goniometric Range of Motion Ankle and Foot ROM Limitations Comments bunion deformity, unable to actively abduct right toe Toe Range of Motion Toes ROM Limitations Comments all toe ROM WFL passively, though actively on right patient unable to actively abduct toe which is positioned in 24 degrees adduction. Left great toe is positioned in 21 degrees adduction but patient is able to actively abduct to almost neutral. PT-OP-M Strength Start: 03/14/20 10:15 Freq: Status: Active Protocol: Document 03/14/20 12:58 [facility] (Rec: 03/14/20 18:43 [facility] [id number]) Toe Strength Toe Manual Muscle Testing Right Great Toe Flexion 4- Good- Extension 4- Good- Left Great Toe Flexion 4+ Good+ Extension 4+ Good+ PT-OP-Q Treatments Start: 03/14/20 10:15 Freq: Status: Active Protocol: Document 03/14/20 12:58 [facility] (Rec: 03/14/20 18:43 [facility] [id number]) Therapeutic Exercises Sitting Exercises heel raise Side bilateral Reps/Minutes 5x Towel scrunch Side bilateral Reps/Minutes 5x great toe abduction stretch Side bilateral Equipment Used L1 TB Reps/Minutes 1 min x 2 Toe spreading Side bilateral Reps/Minutes 5x Toe flex/ext Side bilateral Reps/Minutes 5x Manual Therapy Treatment Taping 1 Body Location right great toe Treatment Focus abduction of right great toe Type of Tape Kinesio Tape Skin Inspection intact Self-Care/Home Management Treatment Education Patient Education Home Exercise Program Other Education written HEP for great toe ROM and strengthening Remove kinesiotape if uncomfortable or painful otherwise can leave on for up to 5 days make appointment to see engineering administrator for left great toe PT-OP-T Assessment and Plan Start: 03/14/20 10:15 Freq: Status: Active Protocol: Document 03/14/20 12:58 [facility] (Rec: 03/14/20 18:43 [facility] [id number]) Physical Therapy Assessment Rehab Potential Rehabilitation Potential Fair Evaluation Complexity Number of Personal Factors/Comorbidities 1-2 Number of Body Systems Impaired 3 Clinical Presentation at Evaluation Evolving Impairments Impairments Balance,ROM,Strength Goals Two Impairment Balance Longterm Goal (LTG) Improve Staley Balance score to 52/56 to decrease fall risk LTG Duration 8 wks One Impairment Strength and ROM right great toe, right foot Short Term Goal (STG) Patient will be independent with HEP focused on strength, ROM, and neutral alignment for improved function. STG Duration 4 wks Baggage Handler Goal (LTG) Patient will demonstrate 5/5 strength right foot and great toe with flex and ext and the ability to abduct her to to neutral for improved gait and balance. LTG Duration 8 wks Assessment Summary Assessment Patient presents with function -limiting right foot and great toe impairments as well as balance impairments s/p right bunionectomy. She would benefit from PT to address these impairments and return to more active lifestyle with safe mobility and decreased fall risk. Physical Therapy Plan Frequency and Duration Frequency of Treatment 2x/Week Duration of Treatment 8 Plan of Care Start Date 03/14/20 Plan of Care End Date 05/13/20 Therapeutic Interventions Therapeutic Interventions Balance Training,Gait Training ,Home Exercise Program,Joint Mobilizations,Manual Therapy, Patient/Caregiver Education, Self-Care/Home Management,Soft Tissue Mobilization,Taping, Therapeutic Activities, Therapeutic Exercises Modalities Cold Pack/Ice Massage Next Visit Focus/Plan Next Note Type Treatment Note Next Visit Plan Review HEP and modify/update as indicated, initiate balance training with addition to HEP . Assess response to kinesiotape right great toe.
--- NOTE | 2020-03-14 18:44 | PT.OPPOC ---
Physical, Occupational & Speech Therapy At [facility] Current Diagnoses Hallux valgus (acquired), right foot (03/14/20) Encounter for follow-up examination after completed treatment for conditions other than malignant neoplasm (03/14/20) Visit Care Team Role Provider Type Dustin Ríos DO Primary Care Provider Physician Specialty: Family Practice Address: [address] [place] [address], [phone] Email: [email or web address] Negrita Sampson DPM Attending Provider Physician Referring Provider Specialty: Podiatry Address: [address] [place] [address], [address] Email: Plan Of Care PT-OP-T Assessment and Plan Start: 03/14/20 10:15 Freq: Status: Active Protocol: Document 03/14/20 12:58 [facility]AK (Rec: 03/14/20 18:43 [facility]AK [id number]) Physical Therapy Assessment Rehab Potential Rehabilitation Potential Fair Evaluation Complexity Number of Personal Factors/Comorbidities 1-2 Number of Body Systems Impaired 3 Clinical Presentation at Evaluation Evolving Impairments Impairments Balance,ROM,Strength Goals Two Impairment Balance [place] Goal (LTG) Improve Staley Balance score to 52/56 to decrease fall risk LTG Duration 8 wks One Impairment Strength and ROM right great toe, right foot Short Term Goal (STG) Patient will be independent with HEP focused on strength, ROM, and neutral alignment for improved function. STG Duration 4 wks Building Serviceman Goal (LTG) Patient will demonstrate 5/5 strength right foot and great toe with flex and ext and the ability to abduct her to to neutral for improved gait and balance. LTG Duration 8 wks Assessment Summary Assessment Patient presents with function -limiting right foot and great toe impairments as well as balance impairments s/p right bunionectomy. She would benefit from PT to address these impairments and return to more active lifestyle with safe mobility and decreased fall risk. Physical Therapy Plan Frequency and Duration Frequency of Treatment 2x/Week Duration of Treatment 8 Plan of Care Start Date 03/14/20 Plan of Care End Date 05/13/20 Therapeutic Interventions Therapeutic Interventions Balance Training,Gait Training ,Home Exercise Program,Joint Mobilizations,Manual Therapy, Patient/Caregiver Education, Self-Care/Home Management,Soft Tissue Mobilization,Taping, Therapeutic Activities, Therapeutic Exercises Modalities Cold Pack/Ice Massage Next Visit Focus/Plan Next Note Type Treatment Note Next Visit Plan Review HEP and modify/update as indicated, initiate balance training with addition to HEP . Assess response to kinesiotape right great toe. Plan of Care Dates Plan of Care Start Date 03/14/20 Plan of Care End Date 05/13/20 Electronically Signed by: Rhona Johnson, PT 03/14/20 [id number] Please Sign and Return: I have reviewed this Plan of Care and certify that the skilled therapy services above are required to meet the patient?s needs. Physician Signature Date Printed Name and Credentials Clinical Instructor Signature Printed Name and Credentials
--- NOTE | 2020-03-21 16:58 | PT.OTN ---
Current Diagnoses Hallux valgus (acquired), right foot (03/21/20) Encounter for follow-up examination after completed treatment for conditions other than malignant neoplasm (03/21/20) Physical Therapy Treatment Note PT-OP-A Visit Information Start: 03/14/20 10:15 Freq: Status: Active Protocol: Document 03/21/20 16:03 [facility]AK (Rec: 03/21/20 16:58 [facility] [id number]) Out-Patient Physical Therapy Visit Information Visit Information Visit Type Treatment Note Visit Start Time 16:00 Visit Stop Time 16:45 Total Visit Minutes 45 Visit Number 2 Precautions Precautions PMH: arthritis, falls, [place], memory loss. PT-OP-B Current Condition Start: 03/14/20 10:15 Freq: Status: Active Protocol: Document 03/14/20 12:58 [facility]AK (Rec: 03/14/20 13:51 [facility] [id number]) Current Condition History of Current Condition Onset Date 08/06/19 Current Complaints stiffness of toe, balance difficulty History of Current Condition right bunionectomy 08/06/19. States she feels it went well, better than before surgery but is now unable to actively separate great toe from second , having difficulty with balance. Has ordered a cane but not using it. Bunion on left foot as well, thinks may need have surgery. Future Testing and Treatments Planned Potential bunionectomy left. Treatment Goals Patient/Caregiver Goals improve balance, flexibility, and alignment of right foot. Prior Functional Status Baseline Function- ADL's Modified Independent Baseline Function- Mobility Modified Independent Baseline Function- Gait modified indep Baseline Function- Work/School retired Baseline Function- Recreation/Hobbies gardening Current Functional Impairments (Reported) Functional Limitations- ADL's more difficulty with balance Functional Limitations- Mobility/Gait not able to take walks for exercise Functional Limitations- Recreation/ gardening difficult due to Hobbies balance dysfunction. Personal Factors Other Personal Factors That May Effect poor memory, dyskinesia Therapy/Recovery PT-OP-C Subjective Start: 03/14/20 10:15 Freq: Status: Active Protocol: Document 03/21/20 16:03 [facility]AK (Rec: 03/21/20 16:58 [facility]AK [id number]) OP-PT Subjective Patient Comments Patient Comments I did my exercises when I thought about them. Going to have my left ingrown toribio worked on in 1 wk PT-OP-D Balance Start: 03/14/20 10:15 Freq: Status: Active Protocol: Document 03/14/20 12:58 [facility] (Rec: 03/14/20 18:43 [facility] [id number]) OP-PT Balance Assessment Sitting Balance Static Sitting Balance Ability Normal Standing Balance Static Standing Balance Ability Normal Balance Tests Single Limb Standing Single Limb- Right unable Single Limb- Left unable Semi-Tandem Standing Semi-Tandem Standing Balance min assist Tandem Tandem Standing mod assist Baez Fall Scale Copyright Permission PT-OP-F Manual Assessment Start: 03/14/20 10:15 Freq: Status: Active Protocol: Document 03/14/20 12:58 [facility] (Rec: 03/14/20 18:43 [facility] [id number]) Manual Assessments Joint Mobility Assessment Joint Mobility Assessment Decreased AP glides right PIP and DIP great toe PT-OP-G Mobility & Gait Start: 03/14/20 10:15 Freq: Status: Active Protocol: Document 03/14/20 12:58 [facility] (Rec: 03/14/20 18:43 [facility] [id number]) OP Gait Assessment Gait Gait Assistance Required: Independent Comments Gait Comments decreased balance evident with gait with increased lateral sway, decreased foot clearance and stride length PT-OP-J Posture/Palpation/Skin Start: 03/14/20 10:15 Freq: Status: Active Protocol: Document 03/14/20 12:58 [facility] (Rec: 03/14/20 18:43 [facility] [id number]) Skin Assessment Incisional Assessment Incision Appearance/Comments well-healed dorsum right great toe Other Assessments Skin Assessment Comments decreased scar mobility right toe PT-OP-K Range of Motion Start: 03/14/20 10:15 Freq: Status: Active Protocol: Document 03/14/20 12:58 [facility] (Rec: 03/14/20 18:43 [facility] [id number]) Hip Goniometric Range of Motion Hip ROM Limitations Comments WFL lbua Knee Goniometric Range of Motion Knee ROM Limitations Comments WFL luba Ankle and Foot Goniometric Range of Motion Ankle and Foot ROM Limitations Comments bunion deformity, unable to actively abduct right toe Toe Range of Motion Toes ROM Limitations Comments all toe ROM WFL passively, though actively on right patient unable to actively abduct toe which is positioned in 24 degrees adduction. Left great toe is positioned in 21 degrees adduction but patient is able to actively abduct to almost neutral. PT-OP-M Strength Start: 03/14/20 10:15 Freq: Status: Active Protocol: Document 03/14/20 12:58 [facility] (Rec: 03/14/20 18:43 [facility] [id number]) Toe Strength Toe Manual Muscle Testing Right Great Toe Flexion 4- Good- Extension 4- Good- Left Great Toe Flexion 4+ Good+ Extension 4+ Good+ PT-OP-Q Treatments Start: 03/14/20 10:15 Freq: Status: Active Protocol: Document 03/21/20 16:03 [facility] (Rec: 03/21/20 16:58 [facility] [id number]) Cardio Equipment Recumbent Elliptical ([employer] Build[employer]) Duration (Minutes) 7 Resistance 1 Seat Position 1 Therapeutic Exercises Sitting Exercises Towel scrunch Side bilateral Reps/Minutes 5x great toe abduction stretch Side bilateral Equipment Used L1 TB Reps/Minutes 1 min x 2 Toe spreading Side bilateral Reps/Minutes 5x Toe flex/ext Side bilateral Reps/Minutes 5x Standing Exercises 5 Standing Exercise Name heel/toe raise Reps/Minutes 10x 4 Standing Exercise Name balance board Comments fwd/bck, side/side balance and weight shift 3 Standing Exercise Name squat Equipment Used chair Reps/Minutes 20x 2 Standing Exercise Name SLS Equipment Used parallel bars 1 Standing Exercise Name tandem stand Equipment Used parallel bars Self-Care/Home Management Treatment Education Other Education given information about bunion splint. Updated HEP with addition of balance exercises PT-OP-T Assessment and Plan Start: 03/14/20 10:15 Freq: Status: Active Protocol: Document 03/21/20 16:03 [facility] (Rec: 03/21/20 16:58 [facility] [id number]) Physical Therapy Assessment Goals Four Impairment Balance Short Term Goal (STG) Pt to begin aerobic exercise program including walking on level ground for at least 30 minutes 5 days a week. STG Duration 6 weeks. Three Impairment Balance Certified Mortician Goal (LTG) Pt to report no falls. LTG Duration 12 weeks Two Impairment Balance Certified Mortician Goal (LTG) Improve Staley Balance score to 52/56 to decrease fall risk LTG Duration 8 wks One Impairment Strength and ROM right great toe, right foot Short Term Goal (STG) Patient will be independent with HEP focused on strength, ROM, and neutral alignment for improved function. STG Duration 4 wks Certified Mortician Goal (LTG) Patient will demonstrate 5/5 strength right foot and great toe with flex and ext and the ability to abduct her to to neutral for improved gait and balance. LTG Duration 8 wks Assessment Summary Assessment Patient needs moderate cues for ther ex due to memory and decreased body awareness. Has difficulty with achieving neutral positioning of right great toe though kinesiotape seemed to help mildly. Was given information about bunion splint to consider. Physical Therapy Plan Frequency and Duration Frequency of Treatment 2x/Week Duration of Treatment 8 Plan of Care Start Date 03/14/20 Plan of Care End Date 05/13/20 Therapeutic Interventions Therapeutic Interventions Balance Training,Gait Training ,Home Exercise Program,Joint Mobilizations,Manual Therapy, Patient/Caregiver Education, Self-Care/Home Management,Soft Tissue Mobilization,Taping, Therapeutic Activities, Therapeutic Exercises Modalities Cold Pack/Ice Massage Next Visit Focus/Plan Next Note Type Treatment Note Next Visit Plan Continue to progress with ther ex for ROM, strengthening, and balance. Kinesiotape right great toe.
--- NOTE | 2020-03-28 11:39 | PT-OP ANOTE ---
patient no-showed for PT appointment today.
--- NOTE | 2020-03-30 16:51 | PT.OTN ---
Current Diagnoses Hallux valgus (acquired), right foot (03/30/20) Encounter for follow-up examination after completed treatment for conditions other than malignant neoplasm (03/30/20) Physical Therapy Treatment Note PT-OP-A Visit Information Start: 03/14/20 10:15 Freq: Status: Active Protocol: Document 03/30/20 12:57 SAK (Rec: 03/30/20 13:29 SAK [id number]) Out-Patient Physical Therapy Visit Information Visit Information Visit Type Treatment Note Visit Start Time 13:00 Visit Stop Time 13:45 Total Visit Minutes 45 Visit Number 3 Precautions Precautions PMH: arthritis, falls, JENA, memory loss. PT-OP-B Current Condition Start: 03/14/20 10:15 Freq: Status: Active Protocol: Document 03/14/20 12:58 SAK (Rec: 03/14/20 13:51 SAK [id number]) Current Condition History of Current Condition Onset Date 08/06/19 Current Complaints stiffness of toe, balance difficulty History of Current Condition right bunionectomy 08/06/19. States she feels it went well, better than before surgery but is now unable to actively separate great toe from second , having difficulty with balance. Has ordered a cane but not using it. Bunion on left foot as well, thinks may need have surgery. Future Testing and Treatments Planned Potential bunionectomy left. Treatment Goals Patient/Caregiver Goals improve balance, flexibility, and alignment of right foot. Prior Functional Status Baseline Function- ADL's Modified Independent Baseline Function- Mobility Modified Independent Baseline Function- Gait modified indep Baseline Function- Work/School retired Baseline Function- Recreation/Hobbies gardening Current Functional Impairments (Reported) Functional Limitations- ADL's more difficulty with balance Functional Limitations- Mobility/Gait not able to take walks for exercise Functional Limitations- Recreation/ gardening difficult due to Hobbies balance dysfunction. Personal Factors Other Personal Factors That May Effect poor memory, dyskinesia Therapy/Recovery PT-OP-C Subjective Start: 03/14/20 10:15 Freq: Status: Active Protocol: Document 03/30/20 12:57 SAK (Rec: 03/30/20 13:29 SAK [id number]) OP-PT Subjective Patient Comments Patient Comments Due to having toenail worked on hasn't been very compliant to HEP PT-OP-D Balance Start: 03/14/20 10:15 Freq: Status: Active Protocol: Document 03/14/20 12:58 [facility] (Rec: 03/14/20 18:43 [facility] [id number]) OP-PT Balance Assessment Sitting Balance Static Sitting Balance Ability Normal Standing Balance Static Standing Balance Ability Normal Balance Tests Single Limb Standing Single Limb- Right unable Single Limb- Left unable Semi-Tandem Standing Semi-Tandem Standing Balance min assist Tandem Tandem Standing mod assist Baez Fall Scale Copyright Permission PT-OP-F Manual Assessment Start: 03/14/20 10:15 Freq: Status: Active Protocol: Document 03/14/20 12:58 [facility] (Rec: 03/14/20 18:43 [facility] [id number]) Manual Assessments Joint Mobility Assessment Joint Mobility Assessment Decreased AP glides right PIP and DIP great toe PT-OP-G Mobility & Gait Start: 03/14/20 10:15 Freq: Status: Active Protocol: Document 03/14/20 12:58 [facility] (Rec: 03/14/20 18:43 [facility] [id number]) OP Gait Assessment Gait Gait Assistance Required: Independent Comments Gait Comments decreased balance evident with gait with increased lateral sway, decreased foot clearance and stride length PT-OP-J Posture/Palpation/Skin Start: 03/14/20 10:15 Freq: Status: Active Protocol: Document 03/14/20 12:58 [facility] (Rec: 03/14/20 18:43 [facility] [id number]) Skin Assessment Incisional Assessment Incision Appearance/Comments well-healed dorsum right great toe Other Assessments Skin Assessment Comments decreased scar mobility right toe PT-OP-K Range of Motion Start: 03/14/20 10:15 Freq: Status: Active Protocol: Document 03/14/20 12:58 [facility] (Rec: 03/14/20 18:43 [facility] [id number]) Hip Goniometric Range of Motion Hip ROM Limitations Comments WFL luba Knee Goniometric Range of Motion Knee ROM Limitations Comments WFL luba Ankle and Foot Goniometric Range of Motion Ankle and Foot ROM Limitations Comments bunion deformity, unable to actively abduct right toe Toe Range of Motion Toes ROM Limitations Comments all toe ROM WFL passively, though actively on right patient unable to actively abduct toe which is positioned in 24 degrees adduction. Left great toe is positioned in 21 degrees adduction but patient is able to actively abduct to almost neutral. PT-OP-M Strength Start: 03/14/20 10:15 Freq: Status: Active Protocol: Document 03/14/20 12:58 [facility] (Rec: 03/14/20 18:43 [facility] [id number]) Toe Strength Toe Manual Muscle Testing Right Great Toe Flexion 4- Good- Extension 4- Good- Left Great Toe Flexion 4+ Good+ Extension 4+ Good+ PT-OP-Q Treatments Start: 03/14/20 10:15 Freq: Status: Active Protocol: Document 03/30/20 12:57 [facility] (Rec: 03/30/20 16:47 [facility] [id number]) Cardio Equipment Recumbent Elliptical (BiodTripl) Duration (Minutes) 8 Resistance 1.5 Seat Position 8 Therapeutic Exercises Sitting Exercises heel raise Side bilateral Reps/Minutes 5x Towel scrunch Side bilateral Reps/Minutes 5x great toe abduction stretch Side bilateral Equipment Used L1 TB Reps/Minutes 1 min x 2 Toe spreading Side bilateral Reps/Minutes 5x Toe flex/ext Side bilateral Reps/Minutes 5x Standing Exercises 5 Standing Exercise Name heel/toe raise Reps/Minutes 10x 4 Standing Exercise Name balance board Comments fwd/bck, side/side balance and weight shift 3 Standing Exercise Name squat Equipment Used chair Reps/Minutes 20x 2 Standing Exercise Name SLS Equipment Used parallel bars 1 Standing Exercise Name tandem stand Equipment Used parallel bars Manual Therapy Treatment Taping 1 Body Location right great toe Treatment Focus abduction of right great toe Type of Tape Kinesio Tape Skin Inspection intact Self-Care/Home Management Treatment Education Other Education given information about bunion splint (patient lost information given last session ) PT-OP-T Assessment and Plan Start: 03/14/20 10:15 Freq: Status: Active Protocol: Document 03/30/20 12:57 [facility] (Rec: 03/30/20 13:29 [facility] [id number]) Physical Therapy Assessment Goals Four Impairment Balance Short Term Goal (STG) Pt to begin aerobic exercise program including walking on level ground for at least 30 minutes 5 days a week. STG Duration 6 weeks. Three Impairment Balance Jail Goal (LTG) Pt to report no falls. LTG Duration 12 weeks Two Impairment Balance [employer] Job [employer]les Goal (LTG) Improve Staley Balance score to 52/56 to decrease fall risk LTG Duration 8 wks One Impairment Strength and ROM right great toe, right foot Short Term Goal (STG) Patient will be independent with HEP focused on strength, ROM, and neutral alignment for improved function. STG Duration 4 wks Jail Goal (LTG) Patient will demonstrate 5/5 strength right foot and great toe with flex and ext and the ability to abduct her to to neutral for improved gait and balance. LTG Duration 8 wks Assessment Summary Assessment Patient returned to PT after having procedure for left toe ingrown toenail. Denies pain, has been soaking as recommended some. Patient decreased short term memory impacts progress with rehab. Physical Therapy Plan Frequency and Duration Frequency of Treatment 2x/Week Duration of Treatment 8 Plan of Care Start Date 03/14/20 Plan of Care End Date 05/13/20 Therapeutic Interventions Therapeutic Interventions Balance Training,Gait Training ,Home Exercise Program,Joint Mobilizations,Manual Therapy, Patient/Caregiver Education, Self-Care/Home Management,Soft Tissue Mobilization,Taping, Therapeutic Activities, Therapeutic Exercises Modalities Cold Pack/Ice Massage Next Visit Focus/Plan Next Note Type Treatment Note Next Visit Plan Continue PT per POC to improve patient ROM, strength, balance.
--- NOTE | 2020-04-04 12:09 | PT.OTN ---
Current Diagnoses Hallux valgus (acquired), right foot (04/04/20) Encounter for follow-up examination after completed treatment for conditions other than malignant neoplasm (04/04/20) Physical Therapy Treatment Note PT-OP-A Visit Information Start: 03/14/20 10:15 Freq: Status: Active Protocol: Document 04/04/20 11:20 [facility] (Rec: 04/04/20 12:[address] [facility] [id number]) Out-Patient Physical Therapy Visit Information Visit Information Visit Type Treatment Note Visit Start Time 11:15 Visit Stop Time 12:00 Total Visit Minutes 45 Visit Number 4 PT-OP-B Current Condition Start: 03/14/20 10:15 Freq: Status: Active Protocol: Document 03/14/20 12:58 [facility] (Rec: 03/14/20 13:51 [facility]AK [id number]) Current Condition History of Current Condition Onset Date 08/06/19 Current Complaints stiffness of toe, balance difficulty History of Current Condition right bunionectomy 08/06/19. States she feels it went well, better than before surgery but is now unable to actively separate great toe from second , having difficulty with balance. Has ordered a cane but not using it. Bunion on left foot as well, thinks may need have surgery. Future Testing and Treatments Planned Potential bunionectomy left. Treatment Goals Patient/Caregiver Goals improve balance, flexibility, and alignment of right foot. Prior Functional Status Baseline Function- ADL's Modified Independent Baseline Function- Mobility Modified Independent Baseline Function- Gait modified indep Baseline Function- Work/School retired Baseline Function- Recreation/Hobbies gardening Current Functional Impairments (Reported) Functional Limitations- ADL's more difficulty with balance Functional Limitations- Mobility/Gait not able to take walks for exercise Functional Limitations- Recreation/ gardening difficult due to Hobbies balance dysfunction. Personal Factors Other Personal Factors That May Effect poor memory, dyskinesia Therapy/Recovery PT-OP-C Subjective Start: 03/14/20 10:15 Freq: Status: Active Protocol: Document 04/04/20 11:20 [facility] (Rec: 04/04/20 12:[address] [facility] [id number]) OP-PT Subjective Patient Comments Patient Comments Ordered bunion splint, has been trying to do HEP. Still having difficulty moving left great toe, especially to separate toes, and unable to flex toes without great toe crossing over second toe. PT-OP-D Balance Start: 03/14/20 10:15 Freq: Status: Active Protocol: Document 03/14/20 12:[address] [facility] (Rec: 03/14/20 18:[address] [facility] [id number]) OP-PT Balance Assessment Sitting Balance Static Sitting Balance Ability Normal Standing Balance Static Standing Balance Ability Normal Balance Tests Single Limb Standing Single Limb- Right unable Single Limb- Left unable Semi-Tandem Standing Semi-Tandem Standing Balance min assist Tandem Tandem Standing mod assist Baez Fall Scale Copyright Permission PT-OP-F Manual Assessment Start: 03/14/20 10:15 Freq: Status: Active Protocol: Document 03/14/20 12:[address] [facility] (Rec: 03/14/20 18:[address] [facility] [id number]) Manual Assessments Joint Mobility Assessment Joint Mobility Assessment Decreased AP glides right PIP and DIP great toe PT-OP-G Mobility & Gait Start: 03/14/20 10:15 Freq: Status: Active Protocol: Document 03/14/20 12:[address] [facility] (Rec: 03/14/20 18:[address] [facility] [id number]) OP Gait Assessment Gait Gait Assistance Required: Independent Comments Gait Comments decreased balance evident with gait with increased lateral sway, decreased foot clearance and stride length PT-OP-J Posture/Palpation/Skin Start: 03/14/20 10:15 Freq: Status: Active Protocol: Document 03/14/20 12:[address] [facility] (Rec: 03/14/20 18:[address] [facility] [id number]) Skin Assessment Incisional Assessment Incision Appearance/Comments well-healed dorsum right great toe Other Assessments Skin Assessment Comments decreased scar mobility right toe PT-OP-K Range of Motion Start: 03/14/20 10:15 Freq: Status: Active Protocol: Document 03/14/20 12:[address] [facility] (Rec: 03/14/20 18:[address] [facility] [id number]) Hip Goniometric Range of Motion Hip ROM Limitations Comments WFL luba Knee Goniometric Range of Motion Knee ROM Limitations Comments WFL luba Ankle and Foot Goniometric Range of Motion Ankle and Foot ROM Limitations Comments bunion deformity, unable to actively abduct right toe Toe Range of Motion Toes ROM Limitations Comments all toe ROM WFL passively, though actively on right patient unable to actively abduct toe which is positioned in 24 degrees adduction. Left great toe is positioned in 21 degrees adduction but patient is able to actively abduct to almost neutral. PT-OP-M Strength Start: 03/14/20 10:15 Freq: Status: Active Protocol: Document 03/14/20 12:[address] [facility] (Rec: 03/14/20 18:[address] [facility] [id number]) Toe Strength Toe Manual Muscle Testing Right Great Toe Flexion 4- Good- Extension 4- Good- Left Great Toe Flexion 4+ Good+ Extension 4+ Good+ PT-OP-Q Treatments Start: 03/14/20 10:15 Freq: Status: Active Protocol: Document 04/04/20 11:[address] [facility] (Rec: 04/04/20 12:[address] [facility] [id number]) Cardio Equipment Recumbent Elliptical (Spacebar) Duration (Minutes) 8 Resistance 2 Seat Position 4 Therapeutic Exercises Sitting Exercises heel raise Side bilateral Reps/Minutes 5x Towel scrunch Side bilateral Reps/Minutes 5x great toe abduction stretch Side bilateral Equipment Used L1 TB Reps/Minutes 1 min x 2 Toe spreading Side bilateral Reps/Minutes 5x Toe flex/ext Side bilateral Reps/Minutes 5x Standing Exercises 5 Standing Exercise Name heel/toe raise Reps/Minutes 10x 4 Standing Exercise Name balance board Comments fwd/bck, side/side balance and weight shift 3 Standing Exercise Name squat Equipment Used chair Reps/Minutes 20x 2 Standing Exercise Name SLS Equipment Used parallel bars 1 Standing Exercise Name tandem stand Equipment Used parallel bars Manual Therapy Treatment Taping 1 Body Location right great toe Treatment Focus abduction of right great toe Type of Tape Kinesio Tape Skin Inspection intact Neuro Re-Education Treatment Balance Activities 7 Details walk on different density foam 6 Details december 3 Details stepping over hurdles fwd and sideways 1 Details SLS EO and EC, tandem stand, march, sidestep, bckwd walk PT-OP-T Assessment and Plan Start: 03/14/20 10:15 Freq: Status: Active Protocol: Document 04/04/20 11:[address] [facility] (Rec: 04/04/20 12:[address] [facility] [id number]) Physical Therapy Assessment Goals Four Impairment Balance Short Term Goal (STG) Pt to begin aerobic exercise program including walking on level ground for at least 30 minutes 5 days a week. STG Duration 6 weeks. Three Impairment Balance [facility] Goal (LTG) Pt to report no falls. LTG Duration 12 weeks Two Impairment Balance [facility] Goal (LTG) Improve Staley Balance score to 52/56 to decrease fall risk LTG Duration 8 wks One Impairment Strength and ROM right great toe, right foot Short Term Goal (STG) Patient will be independent with HEP focused on strength, ROM, and neutral alignment for improved function. STG Duration 4 wks [facility] Goal (LTG) Patient will demonstrate 5/5 strength right foot and great toe with flex and ext and the ability to abduct her to to neutral for improved gait and balance. LTG Duration 8 wks Assessment Summary Assessment Improved balance noted today, able to progress standing balance activities. Still unable to actively abduct left great toe; needs max physical assist. Kinesiotape some helpful, patient has ordered bunion splint. Physical Therapy Plan Frequency and Duration Frequency of Treatment 2x/Week Duration of Treatment 8 Plan of Care Start Date 03/14/20 Plan of Care End Date 05/13/20 Therapeutic Interventions Therapeutic Interventions Balance Training,Gait Training ,Home Exercise Program,Joint Mobilizations,Manual Therapy, Patient/Caregiver Education, Self-Care/Home Management,Soft Tissue Mobilization,Taping, Therapeutic Activities, Therapeutic Exercises Modalities Cold Pack/Ice Massage Next Visit Focus/Plan Next Note Type Treatment Note Next Visit Plan Continue PT per POC to improve patient ROM, strength, balance.
--- NOTE | 2020-04-06 16:13 | PT.OTN ---
Current Diagnoses Hallux valgus (acquired), right foot (04/06/20) Encounter for follow-up examination after completed treatment for conditions other than malignant neoplasm (04/06/20) Physical Therapy Treatment Note PT-OP-A Visit Information Start: 03/14/20 10:15 Freq: Status: Active Protocol: Document 04/06/20 15:17 SAK (Rec: 04/06/20 15:31 [facility] [id number]) Out-Patient Physical Therapy Visit Information Visit Information Visit Type Treatment Note Visit Start Time 11:15 Visit Stop Time 12:00 Total Visit Minutes 45 Visit Number 5 Precautions Precautions PMH: arthritis, falls, [place], memory loss. PT-OP-B Current Condition Start: 03/14/20 10:15 Freq: Status: Active Protocol: Document 03/14/20 12:58 SAK (Rec: 03/14/20 13:51 SAK [id number]) Current Condition History of Current Condition Onset Date 08/06/19 Current Complaints stiffness of toe, balance difficulty History of Current Condition right bunionectomy 08/06/19. States she feels it went well, better than before surgery but is now unable to actively separate great toe from second , having difficulty with balance. Has ordered a cane but not using it. Bunion on left foot as well, thinks may need have surgery. Future Testing and Treatments Planned Potential bunionectomy left. Treatment Goals Patient/Caregiver Goals improve balance, flexibility, and alignment of right foot. Prior Functional Status Baseline Function- ADL's Modified Independent Baseline Function- Mobility Modified Independent Baseline Function- Gait modified indep Baseline Function- Work/School retired Baseline Function- Recreation/Hobbies gardening Current Functional Impairments (Reported) Functional Limitations- ADL's more difficulty with balance Functional Limitations- Mobility/Gait not able to take walks for exercise Functional Limitations- Recreation/ gardening difficult due to Hobbies balance dysfunction. Personal Factors Other Personal Factors That May Effect poor memory, dyskinesia Therapy/Recovery PT-OP-C Subjective Start: 03/14/20 10:15 Freq: Status: Active Protocol: Document 04/06/20 15:17 SAK (Rec: 04/06/20 15:31 SAK [id number]) OP-PT Subjective Patient Comments Patient Comments No new c/o. Doing exercises a little bit. Received her bunion splint but hasn't used yet. PT-OP-D Balance Start: 03/14/20 10:15 Freq: Status: Active Protocol: Document 03/14/20 12:58 [facility] (Rec: 03/14/20 18:43 [facility] [id number]) OP-PT Balance Assessment Sitting Balance Static Sitting Balance Ability Normal Standing Balance Static Standing Balance Ability Normal Balance Tests Single Limb Standing Single Limb- Right unable Single Limb- Left unable Semi-Tandem Standing Semi-Tandem Standing Balance min assist Tandem Tandem Standing mod assist Baez Fall Scale Copyright Permission PT-OP-F Manual Assessment Start: 03/14/20 10:15 Freq: Status: Active Protocol: Document 03/14/20 12:58 [facility] (Rec: 03/14/20 18:43 [facility] [id number]) Manual Assessments Joint Mobility Assessment Joint Mobility Assessment Decreased AP glides right PIP and DIP great toe PT-OP-G Mobility & Gait Start: 03/14/20 10:15 Freq: Status: Active Protocol: Document 03/14/20 12:58 [facility] (Rec: 03/14/20 18:43 [facility] [id number]) OP Gait Assessment Gait Gait Assistance Required: Independent Comments Gait Comments decreased balance evident with gait with increased lateral sway, decreased foot clearance and stride length PT-OP-J Posture/Palpation/Skin Start: 03/14/20 10:15 Freq: Status: Active Protocol: Document 03/14/20 12:58 [facility] (Rec: 03/14/20 18:43 [facility] [id number]) Skin Assessment Incisional Assessment Incision Appearance/Comments well-healed dorsum right great toe Other Assessments Skin Assessment Comments decreased scar mobility right toe PT-OP-K Range of Motion Start: 03/14/20 10:15 Freq: Status: Active Protocol: Document 03/14/20 12:58 [facility] (Rec: 03/14/20 18:43 [facility] [id number]) Hip Goniometric Range of Motion Hip ROM Limitations Comments WFL luba Knee Goniometric Range of Motion Knee ROM Limitations Comments WFL luba Ankle and Foot Goniometric Range of Motion Ankle and Foot ROM Limitations Comments bunion deformity, unable to actively abduct right toe Toe Range of Motion Toes ROM Limitations Comments all toe ROM WFL passively, though actively on right patient unable to actively abduct toe which is positioned in 24 degrees adduction. Left great toe is positioned in 21 degrees adduction but patient is able to actively abduct to almost neutral. PT-OP-M Strength Start: 03/14/20 10:15 Freq: Status: Active Protocol: Document 03/14/20 12:58 [facility] (Rec: 03/14/20 18:43 [facility] [id number]) Toe Strength Toe Manual Muscle Testing Right Great Toe Flexion 4- Good- Extension 4- Good- Left Great Toe Flexion 4+ Good+ Extension 4+ Good+ PT-OP-Q Treatments Start: 03/14/20 10:15 Freq: Status: Active Protocol: Document 04/06/20 15:17 [facility] (Rec: 04/06/20 15:31 [facility] [id number]) Cardio Equipment Recumbent Elliptical (Tapjoy) Duration (Minutes) 8 Resistance 2 Seat Position 4 Therapeutic Exercises Sitting Exercises heel raise Side bilateral Reps/Minutes 5x Towel scrunch Side bilateral Reps/Minutes 5x great toe abduction stretch Side bilateral Equipment Used L1 TB Reps/Minutes 1 min x 2 Toe spreading Side bilateral Reps/Minutes 5x Toe flex/ext Side bilateral Reps/Minutes 5x Standing Exercises 5 Standing Exercise Name heel/toe raise Reps/Minutes 10x Comments barefoot 3 Standing Exercise Name squat Equipment Used chair Reps/Minutes 20x Comments barefoot 2 Standing Exercise Name SLS Equipment Used parallel bars Comments barefoot 1 Standing Exercise Name tandem stand Equipment Used parallel bars Comments barefoot Manual Therapy Treatment Taping 1 Comments tape still intact, patient to try bunion splint. Self-Care/Home Management Treatment Education Other Education re-issued written HEP as patient has lost 2x PT-OP-T Assessment and Plan Start: 03/14/20 10:15 Freq: Status: Active Protocol: Document 04/06/20 15:17 [facility] (Rec: 04/06/20 15:31 [facility] [id number]) Physical Therapy Assessment Goals Four Impairment Balance Short Term Goal (STG) Pt to begin aerobic exercise program including walking on level ground for at least 30 minutes 5 days a week. STG Duration 6 weeks. Three Impairment Balance Half-Way Goal (LTG) Pt to report no falls. LTG Duration 12 weeks Two Impairment Balance Fashion Show Director Goal (LTG) Improve Staley Balance score to 52/56 to decrease fall risk LTG Duration 8 wks One Impairment Strength and ROM right great toe, right foot Short Term Goal (STG) Patient will be independent with HEP focused on strength, ROM, and neutral alignment for improved function. STG Duration 4 wks Half-Way Goal (LTG) Patient will demonstrate 5/5 strength right foot and great toe with flex and ext and the ability to abduct her to to neutral for improved gait and balance. LTG Duration 8 wks Assessment Summary Assessment With verbal and manual cues performance of right great toe improved. Patient able to cross foot across her knee to do assisted motions of her great toe for HEP. Standing ex with verbal and manual cues for contact of all toes on ground, improves with cuing. Physical Therapy Plan Frequency and Duration Frequency of Treatment 2x/Week Duration of Treatment 8 Plan of Care Start Date 03/14/20 Plan of Care End Date 05/13/20 Therapeutic Interventions Therapeutic Interventions Balance Training,Gait Training ,Home Exercise Program,Joint Mobilizations,Manual Therapy, Patient/Caregiver Education, Self-Care/Home Management,Soft Tissue Mobilization,Taping, Therapeutic Activities, Therapeutic Exercises Modalities Cold Pack/Ice Massage Next Visit Focus/Plan Next Note Type Treatment Note Next Visit Plan Progress to barefoot gait training, continue rehab s/p bunion surgery.
--- NOTE | 2020-04-11 16:06 | PT.OTN ---
Current Diagnoses Hallux valgus (acquired), right foot (04/11/20) Encounter for follow-up examination after completed treatment for conditions other than malignant neoplasm (04/11/20) Physical Therapy Treatment Note PT-OP-A Visit Information Start: 03/14/20 10:15 Freq: Status: Active Protocol: Document 04/11/20 13:45 SAK (Rec: 04/11/20 14:12 SAK [id number]) Out-Patient Physical Therapy Visit Information Visit Information Visit Type Treatment Note Visit Start Time 13:45 Visit Stop Time 14:00 Total Visit Minutes 45 Visit Number 6 Precautions Precautions PMH: arthritis, falls, [place], memory loss. PT-OP-B Current Condition Start: 03/14/20 10:15 Freq: Status: Active Protocol: Document 03/14/20 12:58 SAK (Rec: 03/14/20 13:51 SAK [id number]) Current Condition History of Current Condition Onset Date 08/06/19 Current Complaints stiffness of toe, balance difficulty History of Current Condition right bunionectomy 08/06/19. States she feels it went well, better than before surgery but is now unable to actively separate great toe from second , having difficulty with balance. Has ordered a cane but not using it. Bunion on left foot as well, thinks may need have surgery. Future Testing and Treatments Planned Potential bunionectomy left. Treatment Goals Patient/Caregiver Goals improve balance, flexibility, and alignment of right foot. Prior Functional Status Baseline Function- ADL's Modified Independent Baseline Function- Mobility Modified Independent Baseline Function- Gait modified indep Baseline Function- Work/School retired Baseline Function- Recreation/Hobbies gardening Current Functional Impairments (Reported) Functional Limitations- ADL's more difficulty with balance Functional Limitations- Mobility/Gait not able to take walks for exercise Functional Limitations- Recreation/ gardening difficult due to Hobbies balance dysfunction. Personal Factors Other Personal Factors That May Effect poor memory, dyskinesia Therapy/Recovery PT-OP-C Subjective Start: 03/14/20 10:15 Freq: Status: Active Protocol: Document 04/11/20 13:45 SAK (Rec: 04/11/20 14:12 SAK [id number]) OP-PT Subjective Patient Comments Patient Comments Patient report she feels there is some space between her toes now, getting a little better, though reports soreness right great toe PT-OP-D Balance Start: 03/14/20 10:15 Freq: Status: Active Protocol: Document 03/14/20 12:58 [facility] (Rec: 03/14/20 18:43 [facility] [id number]) OP-PT Balance Assessment Sitting Balance Static Sitting Balance Ability Normal Standing Balance Static Standing Balance Ability Normal Balance Tests Single Limb Standing Single Limb- Right unable Single Limb- Left unable Semi-Tandem Standing Semi-Tandem Standing Balance min assist Tandem Tandem Standing mod assist Baez Fall Scale Copyright Permission PT-OP-F Manual Assessment Start: 03/14/20 10:15 Freq: Status: Active Protocol: Document 03/14/20 12:58 [facility] (Rec: 03/14/20 18:43 [facility] [id number]) Manual Assessments Joint Mobility Assessment Joint Mobility Assessment Decreased AP glides right PIP and DIP great toe PT-OP-G Mobility & Gait Start: 03/14/20 10:15 Freq: Status: Active Protocol: Document 03/14/20 12:58 [facility] (Rec: 03/14/20 18:43 [facility] [id number]) OP Gait Assessment Gait Gait Assistance Required: Independent Comments Gait Comments decreased balance evident with gait with increased lateral sway, decreased foot clearance and stride length PT-OP-J Posture/Palpation/Skin Start: 03/14/20 10:15 Freq: Status: Active Protocol: Document 03/14/20 12:58 [facility] (Rec: 03/14/20 18:43 [facility] [id number]) Skin Assessment Incisional Assessment Incision Appearance/Comments well-healed dorsum right great toe Other Assessments Skin Assessment Comments decreased scar mobility right toe PT-OP-K Range of Motion Start: 03/14/20 10:15 Freq: Status: Active Protocol: Document 03/14/20 12:58 [facility] (Rec: 03/14/20 18:43 [facility] [id number]) Hip Goniometric Range of Motion Hip ROM Limitations Comments WFL luba Knee Goniometric Range of Motion Knee ROM Limitations Comments WFL luba Ankle and Foot Goniometric Range of Motion Ankle and Foot ROM Limitations Comments bunion deformity, unable to actively abduct right toe Toe Range of Motion Toes ROM Limitations Comments all toe ROM WFL passively, though actively on right patient unable to actively abduct toe which is positioned in 24 degrees adduction. Left great toe is positioned in 21 degrees adduction but patient is able to actively abduct to almost neutral. PT-OP-M Strength Start: 03/14/20 10:15 Freq: Status: Active Protocol: Document 03/14/20 12:58 [facility] (Rec: 03/14/20 18:43 [facility] [id number]) Toe Strength Toe Manual Muscle Testing Right Great Toe Flexion 4- Good- Extension 4- Good- Left Great Toe Flexion 4+ Good+ Extension 4+ Good+ PT-OP-Q Treatments Start: 03/14/20 10:15 Freq: Status: Active Protocol: Document 04/11/20 13:45 [facility] (Rec: 04/11/20 14:12 [facility] [id number]) Cardio Equipment Recumbent Elliptical (BO.LT) Duration (Minutes) 8 Resistance 2 Seat Position 4 Therapeutic Exercises Sitting Exercises heel raise Side bilateral Reps/Minutes 5x Comments manual facilitation for great toe alignment great toe abduction stretch Side bilateral Equipment Used L1 TB Reps/Minutes 1 min x 2 Toe spreading Side bilateral Reps/Minutes 10x Comments PT manual assist: Patient to assist with foot crossed across knee Toe flex/ext Side bilateral Reps/Minutes 5x Comments PT manual assist; Patient to assist with foot crossed across knee for HEP Standing Exercises 5 Standing Exercise Name heel/toe raise Reps/Minutes 10x Comments barefoot, patient manual facil 4 Standing Exercise Name balance board Comments fwd/bck, side/side balance and weight shift 3 Standing Exercise Name squat Equipment Used chair Reps/Minutes 20x Comments barefoot 2 Standing Exercise Name SLS Equipment Used parallel bars Comments barefoot 1 Standing Exercise Name tandem stand Equipment Used parallel bars Comments barefoot Manual Therapy Treatment Taping 1 Body Location right great kimball Treatment Focus abduction right great toe Type of Tape Kinesiotape Skin Inspection intact Self-Care/Home Management Treatment Education Other Education updated HEP with pictures for patient to do toe ROM with foot crossed on opposite knee PT-OP-T Assessment and Plan Start: 03/14/20 10:15 Freq: Status: Active Protocol: Document 04/11/20 13:45 [facility] (Rec: 04/11/20 14:12 [facility] [id number]) Physical Therapy Assessment Goals Four Impairment Balance Short Term Goal (STG) Pt to begin aerobic exercise program including walking on level ground for at least 30 minutes 5 days a week. STG Duration 6 weeks. Three Impairment Balance Talent Acquisition Specialist Goal (LTG) Pt to report no falls. LTG Duration 12 weeks Two Impairment Balance Talent Acquisition Specialist Goal (LTG) Improve Staley Balance score to 52/56 to decrease fall risk LTG Duration 8 wks One Impairment Strength and ROM right great toe, right foot Short Term Goal (STG) Patient will be independent with HEP focused on strength, ROM, and neutral alignment for improved function. STG Duration 4 wks Talent Acquisition Specialist Goal (LTG) Patient will demonstrate 5/5 strength right foot and great toe with flex and ext and the ability to abduct her to to neutral for improved gait and balance. LTG Duration 8 wks Assessment Summary Assessment Noting some improvement in active toe movement right, though with increased effort great toe right tends to adduct when trying to abduct. Patient forgot to bring her bunion brace she ordered. Patient compliant to HEP Physical Therapy Plan Frequency and Duration Frequency of Treatment 2x/Week Duration of Treatment 8 Plan of Care Start Date 03/14/20 Plan of Care End Date 05/13/20 Therapeutic Interventions Therapeutic Interventions Balance Training,Gait Training ,Home Exercise Program,Joint Mobilizations,Manual Therapy, Patient/Caregiver Education, Self-Care/Home Management,Soft Tissue Mobilization,Taping, Therapeutic Activities, Therapeutic Exercises Modalities Cold Pack/Ice Massage Next Visit Focus/Plan Next Note Type Treatment Note Next Visit Plan Progress to barefoot gait training, continue rehab s/p bunion surgery. Gait training with cane next session ( patient to bring own cane for fitting and training). Assess fit of bunion splint if patient brings.
--- NOTE | 2020-04-18 16:22 | PT.OTN ---
Current Diagnoses Hallux valgus (acquired), right foot (04/18/20) Encounter for follow-up examination after completed treatment for conditions other than malignant neoplasm (04/18/20) Physical Therapy Treatment Note PT-OP-A Visit Information Start: 03/14/20 10:15 Freq: Status: Active Protocol: Document 04/18/20 13:49 SAK (Rec: 04/18/20 14:08 SAK [id number]) Out-Patient Physical Therapy Visit Information Visit Information Visit Type Treatment Note Visit Start Time 13:50 Visit Stop Time 14:00 Total Visit Minutes 40 Visit Number 7 Precautions Precautions PMH: arthritis, falls, [place], memory loss. PT-OP-B Current Condition Start: 03/14/20 10:15 Freq: Status: Active Protocol: Document 03/14/20 12:58 SAK (Rec: 03/14/20 13:51 SAK [id number]) Current Condition History of Current Condition Onset Date 08/06/19 Current Complaints stiffness of toe, balance difficulty History of Current Condition right bunionectomy 08/06/19. States she feels it went well, better than before surgery but is now unable to actively separate great toe from second , having difficulty with balance. Has ordered a cane but not using it. Bunion on left foot as well, thinks may need have surgery. Future Testing and Treatments Planned Potential bunionectomy left. Treatment Goals Patient/Caregiver Goals improve balance, flexibility, and alignment of right foot. Prior Functional Status Baseline Function- ADL's Modified Independent Baseline Function- Mobility Modified Independent Baseline Function- Gait modified indep Baseline Function- Work/School retired Baseline Function- Recreation/Hobbies gardening Current Functional Impairments (Reported) Functional Limitations- ADL's more difficulty with balance Functional Limitations- Mobility/Gait not able to take walks for exercise Functional Limitations- Recreation/ gardening difficult due to Hobbies balance dysfunction. Personal Factors Other Personal Factors That May Effect poor memory, dyskinesia Therapy/Recovery PT-OP-C Subjective Start: 03/14/20 10:15 Freq: Status: Active Protocol: Document 04/11/20 13:45 SAK (Rec: 04/11/20 14:12 SAK [id number]) OP-PT Subjective Patient Comments Patient Comments Patient report she feels there is some space between her toes now, getting a little better, though reports soreness right great toe PT-OP-D Balance Start: 03/14/20 10:15 Freq: Status: Active Protocol: Document 03/14/20 12:58 [facility] (Rec: 03/14/20 18:43 [facility] [id number]) OP-PT Balance Assessment Sitting Balance Static Sitting Balance Ability Normal Standing Balance Static Standing Balance Ability Normal Balance Tests Single Limb Standing Single Limb- Right unable Single Limb- Left unable Semi-Tandem Standing Semi-Tandem Standing Balance min assist Tandem Tandem Standing mod assist Baez Fall Scale Copyright Permission PT-OP-F Manual Assessment Start: 03/14/20 10:15 Freq: Status: Active Protocol: Document 03/14/20 12:58 [facility] (Rec: 03/14/20 18:43 [facility] [id number]) Manual Assessments Joint Mobility Assessment Joint Mobility Assessment Decreased AP glides right PIP and DIP great toe PT-OP-G Mobility & Gait Start: 03/14/20 10:15 Freq: Status: Active Protocol: Document 03/14/20 12:58 [facility] (Rec: 03/14/20 18:43 [facility] [id number]) OP Gait Assessment Gait Gait Assistance Required: Independent Comments Gait Comments decreased balance evident with gait with increased lateral sway, decreased foot clearance and stride length PT-OP-J Posture/Palpation/Skin Start: 03/14/20 10:15 Freq: Status: Active Protocol: Document 03/14/20 12:58 [facility] (Rec: 03/14/20 18:43 [facility] [id number]) Skin Assessment Incisional Assessment Incision Appearance/Comments well-healed dorsum right great toe Other Assessments Skin Assessment Comments decreased scar mobility right toe PT-OP-K Range of Motion Start: 03/14/20 10:15 Freq: Status: Active Protocol: Document 03/14/20 12:58 [facility] (Rec: 03/14/20 18:43 [facility] [id number]) Hip Goniometric Range of Motion Hip ROM Limitations Comments WFL luba Knee Goniometric Range of Motion Knee ROM Limitations Comments WFL luba Ankle and Foot Goniometric Range of Motion Ankle and Foot ROM Limitations Comments bunion deformity, unable to actively abduct right toe Toe Range of Motion Toes ROM Limitations Comments all toe ROM WFL passively, though actively on right patient unable to actively abduct toe which is positioned in 24 degrees adduction. Left great toe is positioned in 21 degrees adduction but patient is able to actively abduct to almost neutral. PT-OP-M Strength Start: 03/14/20 10:15 Freq: Status: Active Protocol: Document 03/14/20 12:58 [facility] (Rec: 03/14/20 18:43 [facility] [id number]) Toe Strength Toe Manual Muscle Testing Right Great Toe Flexion 4- Good- Extension 4- Good- Left Great Toe Flexion 4+ Good+ Extension 4+ Good+ PT-OP-Q Treatments Start: 03/14/20 10:15 Freq: Status: Active Protocol: Document 04/18/20 13:49 [facility] (Rec: 04/18/20 14:08 [facility] [id number]) Therapeutic Exercises Standing Exercises 5 Standing Exercise Name heel/toe raise Reps/Minutes 10x Comments barefoot, patient manual facil 4 Standing Exercise Name balance board Comments fwd/bck, side/side balance and weight shift 3 Standing Exercise Name squat Equipment Used chair Reps/Minutes 20x Comments barefoot 2 Standing Exercise Name SLS Equipment Used parallel bars Comments barefoot 1 Standing Exercise Name tandem stand Equipment Used parallel bars Comments barefoot Manual Therapy Treatment Taping 1 Body Location right great kimabll Treatment Focus abduction right great toe Type of Tape Kinesiotape Skin Inspection intact PT-OP-T Assessment and Plan Start: 03/14/20 10:15 Freq: Status: Active Protocol: Document 04/18/20 13:49 [facility] (Rec: 04/18/20 14:08 [facility] [id number]) Physical Therapy Assessment Goals Four Impairment Balance Short Term Goal (STG) Pt to begin aerobic exercise program including walking on level ground for at least 30 minutes 5 days a week. STG Duration 6 weeks. Three Impairment Balance Intermediate Goal (LTG) Pt to report no falls. LTG Duration 12 weeks Two Impairment Balance Intermediate Goal (LTG) Improve Staley Balance score to 52/56 to decrease fall risk LTG Duration 8 wks One Impairment Strength and ROM right great toe, right foot Short Term Goal (STG) Patient will be independent with HEP focused on strength, ROM, and neutral alignment for improved function. STG Duration 4 wks Spring Inspector Goal (LTG) Patient will demonstrate 5/5 strength right foot and great toe with flex and ext and the ability to abduct her to to neutral for improved gait and balance. LTG Duration 8 wks Physical Therapy Plan Frequency and Duration Frequency of Treatment 2x/Week Duration of Treatment 8 Plan of Care Start Date 03/14/20 Plan of Care End Date 05/13/20 Therapeutic Interventions Therapeutic Interventions Balance Training,Gait Training ,Home Exercise Program,Joint Mobilizations,Manual Therapy, Patient/Caregiver Education, Self-Care/Home Management,Soft Tissue Mobilization,Taping, Therapeutic Activities, Therapeutic Exercises Modalities Cold Pack/Ice Massage Next Visit Focus/Plan Next Note Type Treatment Note Next Visit Plan Assess fit of bunion splint if patient brings.
--- NOTE | 2020-04-24 12:05 | PT.OTN ---
Current Diagnoses Hallux valgus (acquired), right foot (04/24/20) Encounter for follow-up examination after completed treatment for conditions other than malignant neoplasm (04/24/20) Physical Therapy Treatment Note PT-OP-A Visit Information Start: 03/14/20 10:15 Freq: Status: Active Protocol: Document 04/24/20 11:22 SAK (Rec: 04/24/20 11:52 [facility] [id number]) Out-Patient Physical Therapy Visit Information Visit Information Visit Type Treatment Note Visit Start Time 11:15 Visit Stop Time 12:00 Total Visit Minutes 45 Visit Number 8 Precautions Precautions PMH: arthritis, falls, [place], memory loss. PT-OP-B Current Condition Start: 03/14/20 10:15 Freq: Status: Active Protocol: Document 03/14/20 12:58 SAK (Rec: 03/14/20 13:51 SAK [id number]) Current Condition History of Current Condition Onset Date 08/06/19 Current Complaints stiffness of toe, balance difficulty History of Current Condition right bunionectomy 08/06/19. States she feels it went well, better than before surgery but is now unable to actively separate great toe from second , having difficulty with balance. Has ordered a cane but not using it. Bunion on left foot as well, thinks may need have surgery. Future Testing and Treatments Planned Potential bunionectomy left. Treatment Goals Patient/Caregiver Goals improve balance, flexibility, and alignment of right foot. Prior Functional Status Baseline Function- ADL's Modified Independent Baseline Function- Mobility Modified Independent Baseline Function- Gait modified indep Baseline Function- Work/School retired Baseline Function- Recreation/Hobbies gardening Current Functional Impairments (Reported) Functional Limitations- ADL's more difficulty with balance Functional Limitations- Mobility/Gait not able to take walks for exercise Functional Limitations- Recreation/ gardening difficult due to Hobbies balance dysfunction. Personal Factors Other Personal Factors That May Effect poor memory, dyskinesia Therapy/Recovery PT-OP-C Subjective Start: 03/14/20 10:15 Freq: Status: Active Protocol: Document 04/24/20 11:22 SAK (Rec: 04/24/20 11:52 [facility] [id number]) OP-PT Subjective Patient Comments Patient Comments Patient reports she forgot to bring bunion splint. Expresses concern over her memory and feeling depressed; takes medication for depression. Agreeable to make appointment with her doctor. PT-OP-D Balance Start: 03/14/20 10:15 Freq: Status: Active Protocol: Document 03/14/20 12:58 [facility] (Rec: 03/14/20 18:43 [facility] [id number]) OP-PT Balance Assessment Sitting Balance Static Sitting Balance Ability Normal Standing Balance Static Standing Balance Ability Normal Balance Tests Single Limb Standing Single Limb- Right unable Single Limb- Left unable Semi-Tandem Standing Semi-Tandem Standing Balance min assist Tandem Tandem Standing mod assist Baez Fall Scale Copyright Permission PT-OP-F Manual Assessment Start: 03/14/20 10:15 Freq: Status: Active Protocol: Document 03/14/20 12:58 [facility] (Rec: 03/14/20 18:43 [facility] [id number]) Manual Assessments Joint Mobility Assessment Joint Mobility Assessment Decreased AP glides right PIP and DIP great toe PT-OP-G Mobility & Gait Start: 03/14/20 10:15 Freq: Status: Active Protocol: Document 03/14/20 12:58 [facility] (Rec: 03/14/20 18:43 [facility] [id number]) OP Gait Assessment Gait Gait Assistance Required: Independent Comments Gait Comments decreased balance evident with gait with increased lateral sway, decreased foot clearance and stride length PT-OP-J Posture/Palpation/Skin Start: 03/14/20 10:15 Freq: Status: Active Protocol: Document 03/14/20 12:58 [facility] (Rec: 03/14/20 18:43 [facility] [id number]) Skin Assessment Incisional Assessment Incision Appearance/Comments well-healed dorsum right great toe Other Assessments Skin Assessment Comments decreased scar mobility right toe PT-OP-K Range of Motion Start: 03/14/20 10:15 Freq: Status: Active Protocol: Document 03/14/20 12:58 [facility] (Rec: 03/14/20 18:43 [facility] [id number]) Hip Goniometric Range of Motion Hip ROM Limitations Comments WFL luba Knee Goniometric Range of Motion Knee ROM Limitations Comments WFL luba Ankle and Foot Goniometric Range of Motion Ankle and Foot ROM Limitations Comments bunion deformity, unable to actively abduct right toe Toe Range of Motion Toes ROM Limitations Comments all toe ROM WFL passively, though actively on right patient unable to actively abduct toe which is positioned in 24 degrees adduction. Left great toe is positioned in 21 degrees adduction but patient is able to actively abduct to almost neutral. PT-OP-M Strength Start: 03/14/20 10:15 Freq: Status: Active Protocol: Document 03/14/20 12:58 [facility] (Rec: 03/14/20 18:43 [facility] [id number]) Toe Strength Toe Manual Muscle Testing Right Great Toe Flexion 4- Good- Extension 4- Good- Left Great Toe Flexion 4+ Good+ Extension 4+ Good+ PT-OP-Q Treatments Start: 03/14/20 10:15 Freq: Status: Active Protocol: Document 04/24/20 11:22 [facility] (Rec: 04/24/20 11:52 [facility] [id number]) Cardio Equipment Recumbent Elliptical (CatchMe!) Duration (Minutes) 14 Resistance 2 Seat Position 4 Therapeutic Exercises Sitting Exercises heel raise Side bilateral Reps/Minutes 5x Comments manual facilitation for great toe alignment great toe abduction stretch Side bilateral Equipment Used L1 TB Reps/Minutes 1 min x 2 Toe spreading Side bilateral Reps/Minutes 10x Comments PT manual assist: Patient to assist with foot crossed across knee Toe flex/ext Side bilateral Reps/Minutes 5x Comments PT manual assist; Patient to assist with foot crossed across knee for HEP Standing Exercises 5 Standing Exercise Name heel/toe raise Reps/Minutes 10x Comments barefoot, patient manual facil 4 Standing Exercise Name balance board Comments fwd/bck, side/side balance and weight shift 3 Standing Exercise Name squat Equipment Used chair Reps/Minutes 20x Comments barefoot 2 Standing Exercise Name SLS Equipment Used parallel bars Comments barefoot 1 Standing Exercise Name tandem stand Equipment Used parallel bars Comments barefoot Manual Therapy Treatment Taping 1 Body Location right great kimball Treatment Focus abduction right great toe Type of Tape Kinesiotape Skin Inspection intact PT-OP-T Assessment and Plan Start: 03/14/20 10:15 Freq: Status: Active Protocol: Document 04/24/20 11:22 [facility] (Rec: 04/24/20 11:52 [facility] [id number]) Physical Therapy Assessment Goals Four Impairment Balance Short Term Goal (STG) Pt to begin aerobic exercise program including walking on level ground for at least 30 minutes 5 days a week. STG Duration 6 weeks. Three Impairment Balance Nursing Home Goal (LTG) Pt to report no falls. LTG Duration 12 weeks Two Impairment Balance Nursing Home Goal (LTG) Improve Staley Balance score to 52/56 to decrease fall risk LTG Duration 8 wks One Impairment Strength and ROM right great toe, right foot Short Term Goal (STG) Patient will be independent with HEP focused on strength, ROM, and neutral alignment for improved function. STG Duration 4 wks Machinery Cleaner Goal (LTG) Patient will demonstrate 5/5 strength right foot and great toe with flex and ext and the ability to abduct her to to neutral for improved gait and balance. LTG Duration 8 wks Assessment Summary Assessment Patient compliant to toe exercises, not balance exercises. Forgot again to bring toe splint; plans to put in car when gets home. Given information regarding toe spacers as well as states she has been trying different objects to keep her toes apart . Patient agreeable to make appointment with her doctor regarding depression and memory concerns. Physical Therapy Plan Frequency and Duration Frequency of Treatment 2x/Week Duration of Treatment 8 Plan of Care Start Date 03/14/20 Plan of Care End Date 05/13/20 Therapeutic Interventions Therapeutic Interventions Balance Training,Gait Training ,Home Exercise Program,Joint Mobilizations,Manual Therapy, Patient/Caregiver Education, Self-Care/Home Management,Soft Tissue Mobilization,Taping, Therapeutic Activities, Therapeutic Exercises Modalities Cold Pack/Ice Massage Discharge Physical Therapy Discharge Reasons Goals Met Discharge Comments Patient to continue with HEP. Next Visit Focus/Plan Next Note Type Treatment Note Next Visit Plan Assess fit of bunion splint if patient brings.
--- NOTE | 2020-05-01 16:08 | PT.OTN ---
Current Diagnoses Hallux valgus (acquired), right foot (05/01/20) Encounter for follow-up examination after completed treatment for conditions other than malignant neoplasm (05/01/20) Physical Therapy Treatment Note PT-OP-A Visit Information Start: 03/14/20 10:15 Freq: Status: Active Protocol: Document 05/01/20 15:18 SAK (Rec: 05/01/20 15:53 [facility] [id number]) Out-Patient Physical Therapy Visit Information Visit Information Visit Type Treatment Note Visit Start Time 15:15 Visit Stop Time 16:00 Total Visit Minutes 45 Visit Number 9 Precautions Precautions PMH: arthritis, falls, [place], memory loss. PT-OP-B Current Condition Start: 03/14/20 10:15 Freq: Status: Active Protocol: Document 03/14/20 12:58 SAK (Rec: 03/14/20 13:51 SAK [id number]) Current Condition History of Current Condition Onset Date 08/06/19 Current Complaints stiffness of toe, balance difficulty History of Current Condition right bunionectomy 08/06/19. States she feels it went well, better than before surgery but is now unable to actively separate great toe from second , having difficulty with balance. Has ordered a cane but not using it. Bunion on left foot as well, thinks may need have surgery. Future Testing and Treatments Planned Potential bunionectomy left. Treatment Goals Patient/Caregiver Goals improve balance, flexibility, and alignment of right foot. Prior Functional Status Baseline Function- ADL's Modified Independent Baseline Function- Mobility Modified Independent Baseline Function- Gait modified indep Baseline Function- Work/School retired Baseline Function- Recreation/Hobbies gardening Current Functional Impairments (Reported) Functional Limitations- ADL's more difficulty with balance Functional Limitations- Mobility/Gait not able to take walks for exercise Functional Limitations- Recreation/ gardening difficult due to Hobbies balance dysfunction. Personal Factors Other Personal Factors That May Effect poor memory, dyskinesia Therapy/Recovery PT-OP-C Subjective Start: 03/14/20 10:15 Freq: Status: Active Protocol: Document 05/01/20 15:18 SAK (Rec: 05/01/20 15:53 [facility] [id number]) OP-PT Subjective Patient Comments Patient Comments Thinks her toe is getting better gradually. States her balance hasn't been very good today. Admits to poor compliance with HEP. Has appointment with her doctor this week to discuss her memory difficulty. PT-OP-D Balance Start: 03/14/20 10:15 Freq: Status: Active Protocol: Document 03/14/20 12:58 [facility] (Rec: 03/14/20 18:43 [facility] [id number]) OP-PT Balance Assessment Sitting Balance Static Sitting Balance Ability Normal Standing Balance Static Standing Balance Ability Normal Balance Tests Single Limb Standing Single Limb- Right unable Single Limb- Left unable Semi-Tandem Standing Semi-Tandem Standing Balance min assist Tandem Tandem Standing mod assist Baez Fall Scale Copyright Permission PT-OP-F Manual Assessment Start: 03/14/20 10:15 Freq: Status: Active Protocol: Document 03/14/20 12:58 [facility] (Rec: 03/14/20 18:43 [facility] [id number]) Manual Assessments Joint Mobility Assessment Joint Mobility Assessment Decreased AP glides right PIP and DIP great toe PT-OP-G Mobility & Gait Start: 03/14/20 10:15 Freq: Status: Active Protocol: Document 03/14/20 12:58 [facility] (Rec: 03/14/20 18:43 [facility] [id number]) OP Gait Assessment Gait Gait Assistance Required: Independent Comments Gait Comments decreased balance evident with gait with increased lateral sway, decreased foot clearance and stride length PT-OP-J Posture/Palpation/Skin Start: 03/14/20 10:15 Freq: Status: Active Protocol: Document 03/14/20 12:58 [facility] (Rec: 03/14/20 18:43 [facility] [id number]) Skin Assessment Incisional Assessment Incision Appearance/Comments well-healed dorsum right great toe Other Assessments Skin Assessment Comments decreased scar mobility right toe PT-OP-K Range of Motion Start: 03/14/20 10:15 Freq: Status: Active Protocol: Document 03/14/20 12:58 [facility] (Rec: 03/14/20 18:43 [facility] [id number]) Hip Goniometric Range of Motion Hip ROM Limitations Comments WFL luba Knee Goniometric Range of Motion Knee ROM Limitations Comments WFL luba Ankle and Foot Goniometric Range of Motion Ankle and Foot ROM Limitations Comments bunion deformity, unable to actively abduct right toe Toe Range of Motion Toes ROM Limitations Comments all toe ROM WFL passively, though actively on right patient unable to actively abduct toe which is positioned in 24 degrees adduction. Left great toe is positioned in 21 degrees adduction but patient is able to actively abduct to almost neutral. PT-OP-M Strength Start: 03/14/20 10:15 Freq: Status: Active Protocol: Document 03/14/20 12:58 [facility] (Rec: 03/14/20 18:43 [facility] [id number]) Toe Strength Toe Manual Muscle Testing Right Great Toe Flexion 4- Good- Extension 4- Good- Left Great Toe Flexion 4+ Good+ Extension 4+ Good+ PT-OP-Q Treatments Start: 03/14/20 10:15 Freq: Status: Active Protocol: Document 05/01/20 15:18 [facility] (Rec: 05/01/20 15:53 [facility] [id number]) Cardio Equipment Recumbent Elliptical (Ziptask) Duration (Minutes) 10 Resistance 2 Seat Position 4 Therapeutic Exercises Standing Exercises 4 Standing Exercise Name balance board Comments fwd/bck, side/side balance and weight shift 2 Standing Exercise Name SLS Equipment Used parallel bars Comments barefoot 1 Standing Exercise Name tandem stand Equipment Used parallel bars Comments barefoot Manual Therapy Treatment Taping 1 Comments Not done due to toe alignment splint instead. Self-Care/Home Management Treatment Education Patient Education Home Exercise Program Other Education Patient assisted in applying toe alignment bunion splint. PT-OP-T Assessment and Plan Start: 03/14/20 10:15 Freq: Status: Active Protocol: Document 05/01/20 15:18 [facility] (Rec: 05/01/20 15:53 [facility] [id number]) Physical Therapy Assessment Goals Four Impairment Balance Short Term Goal (STG) Pt to begin aerobic exercise program including walking on level ground for at least 30 minutes 5 days a week. STG Duration 6 weeks. Three Impairment Balance Mgmt Specialist Goal (LTG) Pt to report no falls. LTG Duration 12 weeks Two Impairment Balance Retirement Goal (LTG) Improve Staley Balance score to 52/56 to decrease fall risk LTG Duration 8 wks One Impairment Strength and ROM right great toe, right foot Short Term Goal (STG) Patient will be independent with HEP focused on strength, ROM, and neutral alignment for improved function. STG Duration 4 wks Mgmt Specialist Goal (LTG) Patient will demonstrate 5/5 strength right foot and great toe with flex and ext and the ability to abduct her to to neutral for improved gait and balance. LTG Duration 8 wks Assessment Summary Assessment Good fit of toe alignment splint achieved, patient demonstrated good understanding. She was instructed to gradually increase wearing time as tolerated. Has appointment with her physician this week. Physical Therapy Plan Frequency and Duration Frequency of Treatment 2x/Week Duration of Treatment 8 Plan of Care Start Date 03/14/20 Plan of Care End Date 05/13/20 Therapeutic Interventions Therapeutic Interventions Balance Training,Gait Training ,Home Exercise Program,Joint Mobilizations,Manual Therapy, Patient/Caregiver Education, Self-Care/Home Management,Soft Tissue Mobilization,Taping, Therapeutic Activities, Therapeutic Exercises Modalities Cold Pack/Ice Massage Next Visit Focus/Plan Next Note Type Treatment Note Next Visit Plan Assess response to wearing toe alignment splint. Progress ther ex as tolerated, try Shuttle balance.
--- NOTE | 2020-05-08 15:19 | PT.OTN ---
Current Diagnoses Hallux valgus (acquired), right foot (05/08/20) Encounter for follow-up examination after completed treatment for conditions other than malignant neoplasm (05/08/20) Physical Therapy Treatment Note PT-OP-A Visit Information Start: 03/14/20 10:15 Freq: Status: Active Protocol: Document 05/08/20 14:35 TP (Rec: 05/08/20 16:08 TP [id number]) Out-Patient Physical Therapy Visit Information Visit Information Visit Type Treatment Note Visit Start Time 14:35 Visit Stop Time 15:19 Total Visit Minutes 44 Visit Number 10 Number of LEAD REFINERY SUPERVISOR Visits 1 PT-OP-B Current Condition Start: 03/14/20 10:15 Freq: Status: Active Protocol: Document 03/14/20 12:58 SAK (Rec: 03/14/20 13:51 SAK [id number]) Current Condition History of Current Condition Onset Date 08/06/19 Current Complaints stiffness of toe, balance difficulty History of Current Condition right bunionectomy 08/06/19. States she feels it went well, better than before surgery but is now unable to actively separate great toe from second , having difficulty with balance. Has ordered a cane but not using it. Bunion on left foot as well, thinks may need have surgery. Future Testing and Treatments Planned Potential bunionectomy left. Treatment Goals Patient/Caregiver Goals improve balance, flexibility, and alignment of right foot. Prior Functional Status Baseline Function- ADL's Modified Independent Baseline Function- Mobility Modified Independent Baseline Function- Gait modified indep Baseline Function- Work/School retired Baseline Function- Recreation/Hobbies gardening Current Functional Impairments (Reported) Functional Limitations- ADL's more difficulty with balance Functional Limitations- Mobility/Gait not able to take walks for exercise Functional Limitations- Recreation/ gardening difficult due to Hobbies balance dysfunction. Personal Factors Other Personal Factors That May Effect poor memory, dyskinesia Therapy/Recovery PT-OP-C Subjective Start: 03/14/20 10:15 Freq: Status: Active Protocol: Document 05/08/20 14:35 TP (Rec: 05/08/20 16:04 TP [id number]) OP-PT Subjective Patient Comments Patient Comments Pt reports feeling tired today . Brought toe splint in to learn how to put it on properly. Admits poor compliance of HEP. PT-OP-D Balance Start: 03/14/20 10:15 Freq: Status: Active Protocol: Document 03/14/20 12:58 [facility] (Rec: 03/14/20 18:43 [facility] [id number]) OP-PT Balance Assessment Sitting Balance Static Sitting Balance Ability Normal Standing Balance Static Standing Balance Ability Normal Balance Tests Single Limb Standing Single Limb- Right unable Single Limb- Left unable Semi-Tandem Standing Semi-Tandem Standing Balance min assist Tandem Tandem Standing mod assist Baez Fall Scale Copyright Permission PT-OP-F Manual Assessment Start: 03/14/20 10:15 Freq: Status: Active Protocol: Document 03/14/20 12:58 [facility] (Rec: 03/14/20 18:43 [facility] [id number]) Manual Assessments Joint Mobility Assessment Joint Mobility Assessment Decreased AP glides right PIP and DIP great toe PT-OP-G Mobility & Gait Start: 03/14/20 10:15 Freq: Status: Active Protocol: Document 03/14/20 12:58 [facility] (Rec: 03/14/20 18:43 [facility] [id number]) OP Gait Assessment Gait Gait Assistance Required: Independent Comments Gait Comments decreased balance evident with gait with increased lateral sway, decreased foot clearance and stride length PT-OP-J Posture/Palpation/Skin Start: 03/14/20 10:15 Freq: Status: Active Protocol: Document 03/14/20 12:58 [facility] (Rec: 03/14/20 18:43 [facility] [id number]) Skin Assessment Incisional Assessment Incision Appearance/Comments well-healed dorsum right great toe Other Assessments Skin Assessment Comments decreased scar mobility right toe PT-OP-K Range of Motion Start: 03/14/20 10:15 Freq: Status: Active Protocol: Document 03/14/20 12:58 [facility] (Rec: 03/14/20 18:43 [facility] [id number]) Hip Goniometric Range of Motion Hip ROM Limitations Comments WFL luba Knee Goniometric Range of Motion Knee ROM Limitations Comments WFL luba Ankle and Foot Goniometric Range of Motion Ankle and Foot ROM Limitations Comments bunion deformity, unable to actively abduct right toe Toe Range of Motion Toes ROM Limitations Comments all toe ROM WFL passively, though actively on right patient unable to actively abduct toe which is positioned in 24 degrees adduction. Left great toe is positioned in 21 degrees adduction but patient is able to actively abduct to almost neutral. PT-OP-M Strength Start: 03/14/20 10:15 Freq: Status: Active Protocol: Document 03/14/20 12:58 SAK (Rec: 03/14/20 18:43 SAK [id number]) Toe Strength Toe Manual Muscle Testing Right Great Toe Flexion 4- Good- Extension 4- Good- Left Great Toe Flexion 4+ Good+ Extension 4+ Good+ PT-OP-Q Treatments Start: 03/14/20 10:15 Freq: Status: Active Protocol: Document 05/08/20 14:35 TP (Rec: 05/08/20 16:04 TP [id number]) Cardio Equipment Recumbent Bicycle Duration (Minutes) 8 Resistance 2 Seat Position 4 Therapeutic Exercises Sitting Exercises heel raise Side right Reps/Minutes 5x great toe abduction stretch Side bilateral Equipment Used rubberband Reps/Minutes 1 min x 1 band, 1 mind x 2 bands Toe spreading Side right Reps/Minutes 10 reps x 2 sets Comments Pt provide manual support to abd great toe as needed Toe flex/ext Side right Reps/Minutes 10 reps x 2 sets Comments Education to keep foot on floor and focus on lifting arch Standing Exercises CHERRI Standing Exercise Name CHERRI Side bilateral Equipment Used table Reps/Minutes 5min Comments Cues for feeling into three corners of foot, keeping COG over CHERRI 2 Standing Exercise Name SLS Equipment Used table Comments barefoot, COG over foot triangle, upright posture PT-OP-T Assessment and Plan Start: 03/14/20 10:15 Freq: Status: Active Protocol: Document 05/08/20 14:35 TP (Rec: 05/08/20 16:04 TP [id number]) Physical Therapy Assessment Goals Four Impairment Balance Short Term Goal (STG) Pt to begin aerobic exercise program including walking on level ground for at least 30 minutes 5 days a week. STG Duration 6 weeks. Three Impairment Balance Graduate Advisor Goal (LTG) Pt to report no falls. LTG Duration 12 weeks Two Impairment Balance Senior Living Goal (LTG) Improve Staley Balance score to 52/56 to decrease fall risk LTG Duration 8 wks One Impairment Strength and ROM right great toe, right foot Short Term Goal (STG) Patient will be independent with HEP focused on strength, ROM, and neutral alignment for improved function. STG Duration 4 wks Senior Living Goal (LTG) Patient will demonstrate 5/5 strength right foot and great toe with flex and ext and the ability to abduct her to to neutral for improved gait and balance. LTG Duration 8 wks Assessment Summary Assessment Pt education required for proper donning of toe alignment splint therapist performed with suggestion to take picture when pt returns home for recall of positioning . Suggestion to unvelcro splint and slide off to reduce confusion when donning and doffing. Pt denied pain or discomfort while warming up on recumbent bike. Focus today on reviewing HEP and balance. Pt required review of HEP exercises and demonstrated with good understanding. Pt provides support for R great toe as needed to increase abduction. Instructed to activate muscles simultaneosly when providing support. Pt education to feel all three corners of foot in B SLS and standing hip distance. Pt required table for support and cues for proper posture. Pt displays difficulty shifting weight into the heels. Continue tx to increase strength and endurance of intrinsic musculature of the R foot and improve balance. Physical Therapy Plan Frequency and Duration Frequency of Treatment 2x/Week Duration of Treatment 8 Plan of Care Start Date 03/14/20 Plan of Care End Date 05/13/20 Therapeutic Interventions Therapeutic Interventions Balance Training,Gait Training ,Home Exercise Program,Joint Mobilizations,Manual Therapy, Patient/Caregiver Education, Self-Care/Home Management,Soft Tissue Mobilization,Taping, Therapeutic Activities, Therapeutic Exercises Modalities Cold Pack/Ice Massage Next Visit Focus/Plan Next Note Type Treatment Note Next Visit Plan Assess response to previous tx , including use of toe alignment splint. Place vivar on toe splint if needed to allow patient independence to don/doff. Balance progressions as able, with use of rocker board before Shuttle balance.
--- NOTE | 2020-05-15 16:34 | PT.OTN ---
Current Diagnoses Hallux valgus (acquired), right foot (05/15/20) Encounter for follow-up examination after completed treatment for conditions other than malignant neoplasm (05/15/20) Physical Therapy Treatment Note PT-OP-A Visit Information Start: 03/14/20 10:15 Freq: Status: Active Protocol: Document 05/15/20 14:29 SAK (Rec: 05/15/20 15:17 SAK [id number]) Out-Patient Physical Therapy Visit Information Visit Information Visit Type Treatment Note Visit Start Time 14:30 Visit Stop Time 15:15 Total Visit Minutes 45 Visit Number 11 Number of OPTOMETRIC TECH Visits 0 Precautions Precautions PMH: arthritis, falls, [place], memory loss. PT-OP-B Current Condition Start: 03/14/20 10:15 Freq: Status: Active Protocol: Document 03/14/20 12:58 SAK (Rec: 03/14/20 13:51 SAK [id number]) Current Condition History of Current Condition Onset Date 08/06/19 Current Complaints stiffness of toe, balance difficulty History of Current Condition right bunionectomy 08/06/19. States she feels it went well, better than before surgery but is now unable to actively separate great toe from second , having difficulty with balance. Has ordered a cane but not using it. Bunion on left foot as well, thinks may need have surgery. Future Testing and Treatments Planned Potential bunionectomy left. Treatment Goals Patient/Caregiver Goals improve balance, flexibility, and alignment of right foot. Prior Functional Status Baseline Function- ADL's Modified Independent Baseline Function- Mobility Modified Independent Baseline Function- Gait modified indep Baseline Function- Work/School retired Baseline Function- Recreation/Hobbies gardening Current Functional Impairments (Reported) Functional Limitations- ADL's more difficulty with balance Functional Limitations- Mobility/Gait not able to take walks for exercise Functional Limitations- Recreation/ gardening difficult due to Hobbies balance dysfunction. Personal Factors Other Personal Factors That May Effect poor memory, dyskinesia Therapy/Recovery PT-OP-C Subjective Start: 03/14/20 10:15 Freq: Status: Active Protocol: Document 05/15/20 14:29 SAK (Rec: 05/15/20 15:17 SAK [id number]) OP-PT Subjective Patient Comments Patient Comments Still had difficulty getting the toe splint on by herself. Saw physician to talk about memory, cognition, and depression issues. Referred to behavioral health, not speech therapy. OK with patient for PT to contact physician regarding speech therapy. PT-OP-D Balance Start: 03/14/20 10:15 Freq: Status: Active Protocol: Document 03/14/20 12:58 [facility] (Rec: 03/14/20 18:43 [facility] [id number]) OP-PT Balance Assessment Sitting Balance Static Sitting Balance Ability Normal Standing Balance Static Standing Balance Ability Normal Balance Tests Single Limb Standing Single Limb- Right unable Single Limb- Left unable Semi-Tandem Standing Semi-Tandem Standing Balance min assist Tandem Tandem Standing mod assist Baez Fall Scale Copyright Permission PT-OP-F Manual Assessment Start: 03/14/20 10:15 Freq: Status: Active Protocol: Document 03/14/20 12:58 [facility] (Rec: 03/14/20 18:43 [facility] [id number]) Manual Assessments Joint Mobility Assessment Joint Mobility Assessment Decreased AP glides right PIP and DIP great toe PT-OP-G Mobility & Gait Start: 03/14/20 10:15 Freq: Status: Active Protocol: Document 03/14/20 12:58 [facility] (Rec: 03/14/20 18:43 [facility] [id number]) OP Gait Assessment Gait Gait Assistance Required: Independent Comments Gait Comments decreased balance evident with gait with increased lateral sway, decreased foot clearance and stride length PT-OP-J Posture/Palpation/Skin Start: 03/14/20 10:15 Freq: Status: Active Protocol: Document 03/14/20 12:58 [facility] (Rec: 03/14/20 18:43 [facility] [id number]) Skin Assessment Incisional Assessment Incision Appearance/Comments well-healed dorsum right great toe Other Assessments Skin Assessment Comments decreased scar mobility right toe PT-OP-K Range of Motion Start: 03/14/20 10:15 Freq: Status: Active Protocol: Document 03/14/20 12:58 [facility] (Rec: 03/14/20 18:43 [facility] [id number]) Hip Goniometric Range of Motion Hip ROM Limitations Comments WFL luba Knee Goniometric Range of Motion Knee ROM Limitations Comments WFL luba Ankle and Foot Goniometric Range of Motion Ankle and Foot ROM Limitations Comments bunion deformity, unable to actively abduct right toe Toe Range of Motion Toes ROM Limitations Comments all toe ROM WFL passively, though actively on right patient unable to actively abduct toe which is positioned in 24 degrees adduction. Left great toe is positioned in 21 degrees adduction but patient is able to actively abduct to almost neutral. PT-OP-M Strength Start: 03/14/20 10:15 Freq: Status: Active Protocol: Document 03/14/20 12:58 [facility] (Rec: 03/14/20 18:43 [facility] [id number]) Toe Strength Toe Manual Muscle Testing Right Great Toe Flexion 4- Good- Extension 4- Good- Left Great Toe Flexion 4+ Good+ Extension 4+ Good+ PT-OP-Q Treatments Start: 03/14/20 10:15 Freq: Status: Active Protocol: Document 05/15/20 14:29 [facility] (Rec: 05/15/20 15:17 [facility] [id number]) Cardio Equipment Recumbent Bicycle Duration (Minutes) 10 Resistance 2 Seat Position 4 Therapeutic Exercises Sitting Exercises heel raise Side right Reps/Minutes 5x great toe abduction stretch Side bilateral Equipment Used rubberband Reps/Minutes 1 min x 1 band, 1 mind x 2 bands Toe spreading Side right Reps/Minutes 10 reps x 2 sets Comments Pt provide manual support to abd great toe as needed Toe flex/ext Side right Reps/Minutes 10 reps x 2 sets Comments Education to keep foot on floor and focus on lifting arch Standing Exercises CHERRI Standing Exercise Name CHERRI Side bilateral Equipment Used table Reps/Minutes 5min Comments Cues for feeling into three corners of foot, keeping COG over CHERRI 4 Standing Exercise Name balance board Comments fwd/bck, side/side balance and weight shift 2 Standing Exercise Name SLS Equipment Used table Comments barefoot, COG over foot triangle, upright posture PT-OP-T Assessment and Plan Start: 03/14/20 10:15 Freq: Status: Active Protocol: Document 05/15/20 14:29 [facility] (Rec: 05/15/20 15:17 [facility] [id number]) Physical Therapy Assessment Goals Four Impairment Balance Short Term Goal (STG) Pt to begin aerobic exercise program including walking on level ground for at least 30 minutes 5 days a week. : some goal progress, patient does gardening more than taking walks, states low motivation to just walk.. STG Duration 6 weeks. Three Impairment Balance Tooth Cutter Pinion Goal (LTG) Pt to report no falls. 05/15/20: goal achieved LTG Duration 12 weeks Two Impairment Balance Tooth Cutter Pinion Goal (LTG) Improve Staley Balance score to 52/56 to decrease fall risk 05/15/20: some goal progress, poor compliance to HEP LTG Duration 8 wks One Impairment Strength and ROM right great toe, right foot Short Term Goal (STG) Patient will be independent with HEP focused on strength, ROM, and neutral alignment for improved function. STG Duration 4 wks Alf Goal (LTG) Patient will demonstrate 5/5 strength right foot and great toe with flex and ext and the ability to abduct her to to neutral for improved gait and balance. 05/15/20: goal progress, not fully achieved. Low compliance to HEP LTG Duration 8 wks Assessment Summary Assessment Took of patients to splint after applicaiton for reference at home. Physician note indicates patient being referred to behavioral health due to depression. Will request outpatient speech theraply for memory. Progress in PT has plateauted. Patient agreeable to discharge from PT, will try to do better with home exercise program. Physical Therapy Plan Frequency and Duration Frequency of Treatment 2x/Week Duration of Treatment 8 Plan of Care Start Date 03/14/20 Plan of Care End Date 05/13/20 Therapeutic Interventions Therapeutic Interventions Balance Training,Gait Training ,Home Exercise Program,Joint Mobilizations,Manual Therapy, Patient/Caregiver Education, Self-Care/Home Management,Soft Tissue Mobilization,Taping, Therapeutic Activities, Therapeutic Exercises Modalities Cold Pack/Ice Massage
== END 2020-05-17 10:45 | disposition home or self-care (01) ==
LOC: PHYS 14:30
PROVIDERS: PCP Family Medicine; Referring Provider Podiatrist; Visit Provider Podiatrist
DX: Z09 Encounter for follow-up examination after completed treatment for conditions other than malignant neoplasm (principal); M20.11 Hallux valgus (acquired), right foot
CPT/HCPCS: 97110; 97112; 97162; 97535

== ENCOUNTER → 2020-05-29 10:32 | Outpatient (CLI) | payer OTHER, SELFPAY ==
[2020-05-29 11:02] LABS: Add Manual Diff / Slide Review NO; Basophils Absolute Auto 0 /uL (0-100); Basophils Percent Auto 0.2 % (0-2); Eosinophils Absolute Auto 100 /uL (0-450); Eosinophils Percent Auto 1.4 % (2-4); Hematocrit 41.6 % (36-46); Hemoglobin 13.7 g/dL (12.0-16.0); Lymphocytes Absolute Auto 900 /uL (1100-4500); Lymphocytes Percent Auto 14.4 % (25-40); Mean Corpuscular HGB Conc 32.8 % (30-36); Mean Corpuscular Hemoglobin 28.6 PG (26-34); Mean Corpuscular Volume 87.2 fL (80-100); Monocytes Absolute Auto 600 /uL (0-900); Monocytes Percent Auto 9.6 % (3-14); Neutrophils Absolute Auto 4900 /uL (1500-7000); Neutrophils Percent Auto 74.4 % (50-75); Platelet Count 241 X10^3/uL (150-400); Red Blood Cell Count 4.77 X10^6/uL (4.0-5.2); Red Cell Distribution Width 14.5 % (11.6-14.8); White Blood Cell Count 6.5 X10^3/uL (4.5-11.0)
[2020-05-29 11:20] LABS: Alanine Aminotransferase 18 IU/L (<35); Albumin 4.4 g/dL (3.5-5.0); Albumin Globulin Ratio 1.6 (1.0-2.8); Alkaline Phosphatase 90 U/L (38-126); Aspartate Aminotransferase 31 IU/L (14-36); BUN Creatinine Ratio 7.5 (6-22); Bilirubin Total 1.1 mg/dL (0.2-1.3); Blood Urea Nitrogen 6 mg/dL (7-17); Calcium 9.6 mg/dL (8.4-10.2); Carbon Dioxide 27 mmol/L (22-32); Chloride 101 mmol/L (98-107); Estimated Glomerular Filt Rate > 60.0 mL/min (>60); Globulin 2.8 g/dL (1.7-4.1); Glucose 96 mg/dL (80-110); HEMOLYSIS < 15 (0-50); Potassium 4.8 mmol/L (3.4-5.1); Sodium 137 mmol/L (137-145); Total Protein 7.2 g/dL (6.3-8.2)
[2020-05-29 11:35] LABS: Free T3, Triiodothyronine Free 3.64 pg/mL (2.77-5.27)
[2020-05-29 11:49] LABS: Thyroid Stimulating Hormone 0.414 uIU/mL (0.47-4.68)
[2020-05-29 12:06] LABS: Vitamin B12 > 1000 pg/mL (239-931)
== END ==
PROVIDERS: Family Medicine; PCP Family Medicine; Referring Provider Family Medicine; Visit Provider Family Medicine
DX: E03.9 Hypothyroidism, unspecified (principal); R41.3 Other amnesia; R53.83 Other fatigue
CPT/HCPCS: 36415; 80053; 82607; 84439; 84443; 84481; 85025

== ENCOUNTER → 2020-08-25 13:53 | Outpatient (CLI) | payer OTHER, SELFPAY ==
[2020-08-25 14:57] LABS: TSH w/ Reflex to FT4 1.02 uIU/mL (0.47-4.68)
== END ==
PROVIDERS: PCP Family Medicine; Referring Provider Registered Nurse Diabetes Educator; Visit Provider Registered Nurse Diabetes Educator
DX: E03.9 Hypothyroidism, unspecified (principal); F32.9 Major depressive disorder, single episode, unspecified
CPT/HCPCS: 36415; 84443

== ENCOUNTER → 2020-11-17 09:45 | Outpatient (CLI) | payer MEDICARE, SELFPAY ==
[2020-11-17] MEDS: COVID-19 VACC #1, MRNA(MOD) 100 MCG/0.5 ML VIAL IM (09:53)
== END ==
PROVIDERS: PCP Registered Nurse Diabetes Educator; Visit Provider Internal Medicine
DX: Z23 Encounter for immunization (principal)
CPT/HCPCS: 0011A; 91301

== ENCOUNTER 2020-11-24 11:36 | Emergency (ER) | payer OTHER, SELFPAY ==
[2020-11-24 11:40] VITALS: BP 167/84; PULSE 81; RESP 15; TEMP 36.8; O2SAT 96; BMI 31.2
--- NOTE | 2020-11-24 11:44 | DI.RAD.S_ITS ---
PROCEDURE: XR FINGER RT MIN 2V INDICATIONS: worried she broke her finger TECHNIQUE: AP hand, 2 views of the 3rd finger(s) acquired. COMPARISON: None. FINDINGS: Bones: No fractures or dislocations. No suspicious bony lesions. Diffuse IP degenerative narrowing is present. There is slight subluxation at the 3rd PIP and DIP joint. Osteophyte with lucency is noted along the dorsal aspect of the 3rd digit. Soft tissues: No suspicious soft tissue calcifications. IMPRESSION: Periarticular osteophytes at the 3rd DIP joint with lucency, which could could represent fracture if point tenderness is present. Dictated by: Glenna Mckeon M.D. on 11/24/2020 at 12:12 Approved by: Glenna Mckeon M.D. on 11/24/2020 at 12:14
--- NOTE | 2020-11-24 11:47 | ED_ITS ---
HPI - Extremity Problem <LUIZA Gomes - Last Filed: 11/24/20 12:35> General Chief complaint: Extremity Injury, Upper Stated complaint: injured middle finger right hand, a month ago Time Seen by Provider: 11/24/20 11:38 Source: patient Mode of arrival: Ambulatory Limitations: no limitations History of Present Illness HPI Narrative: This is a 80-year-old female, former smoker, who has no contributory medical history presents to ED with nontraumatic/injury right dominant hand long finger discomfort and deformity for quite a long time. Patient states it is not painful but thought should check it out is has been going on for a while. Patient states pain only when she is trying to straighten out distal phalange. She is able to move all fingers and intact sensation. She has a history of arthritis in hand in EHR and takes celecoxib daily which she was not able to recall. Related Data Previous Rx's Medication Instructions Recorded levothyroxine 50 mcg tablet 50 mcg PO DAILY #90 tab 08/30/20 celecoxib 100 mg capsule 100 mg PO DAILY #90 cap 10/27/20 escitalopram oxalate 5 mg tablet 15 mg PO DAILY #270 tab 10/27/20 Allergies Allergy/AdvReac Type Severity Reaction Status Date / Time No Known Drug Allergies Allergy Verified 11/24/20 11:44 Review of Systems <LUIZA Gomes - Last Filed: 11/24/20 12:35> Review of Systems Narrative: General: Denies fever, chills, fatigue, malaise, sweats. Respiratory: Denies dyspnea, cough, wheezing, hemoptysis, sputum. Cardiovascular: Denies chest pain, palpitations, orthopnea, edema. Gastrointestinal: Denies nausea, vomiting, abdominal pain, diarrhea, constipation, melena. : Denies dysuria, frequency, incontinence, hematuria, urinary retention. Musculoskeletal: See HPI Skin: Denies rash, skin lesions, or other. Patient History <LUIZA Gomes - Last Filed: 11/24/20 12:35> Medical History Allergic rhinitis Arthritis Bunion of great toe of right foot Chickenpox Chronic bilateral low back pain Depression Foot pain Fractures Hearing loss History of tremor Hypothyroidism Measles Memory loss Memory problem Mumps Osteoarthritis of CMC joint of thumb Plantar fasciitis Rubella Tinnitus of both ears Surgical History Hx of toe surgery Hx of tonsillectomy Hx of tubal ligation Family History Father No problems noted. Mother No problems noted. Social History number of children: 4 pets and animals: No education level: college occupational status: other travel history: other leisure activities: reading and other other: gardening, travel, sewing, crafts, movies, plays seatbelt use: always water heater temp set < 120 deg: Yes working smoke detector in home: Yes fire extinguisher in home: No carbon monox detector in home: Yes firearms in home: No Smoking Status: Former smoker Tobacco: How many years used: 15 second hand exposure: No alcohol intake: current substance use type: does not use during the past year weight has: remained stable well-balanced diet: daily or most days daily servings fruits/ve-4 caffeine: Yes (1-2 drinks per day) eating out: 1-3 times/week Type(s) of exercise: aerobic, other and yoga frequency: 1-2 times per week duration: 45-60 minutes/day additional social history: vision deficiencies Smoking Status: Former smoker alcohol intake frequency: holidays/special occasions only Substance Use Type: does not use Exam <LUIZA Gomes - Last Filed: 11/24/20 12:35> Narrative Exam Narrative: General appearance: well developed, well nourished, in no acute distress. Head: normocephalic, atraumatic, no scalp lesions, non-tender. ENT: Hearing grossly intact. Nose without bleeding, purulent discharge. Mucous membrane moist, no mucosal lesion. Throat without erythema, tonsillar hypertrophy or exudate. Uvula in midline, airway patent. Neck/Thyroid: neck supple, full range of motion, no visible masses or meningeal signs. No JVD, non-tender without lymphadenopathy. Skin: no suspicious rashes, lesions over visible areas. Warm and dry and appropriate color for ethnicity. Heart: no clubbing, no cyanosis, no edema. Lungs: Breathing even and unlabored. No stridor. No accessory muscles used. Able to speak in full sentences. Chest: normal shape and expansion. Abdomen: non-obese, non-distended. Neurologic: alert and oriented. Cognitive exam, ZIPPER JOINER and PNS grossly intact on informal exam. Psych: good eye contact, normal affect. Initial Vital Signs Initial Vital Signs: Vital Signs Temperature 98.3 F 11/24/20 11:40 Pulse Rate 81 11/24/20 11:40 Respiratory Rate 15 11/24/20 11:40 Blood Pressure 167/84 H 11/24/20 11:40 Pulse Oximetry 96 11/24/20 11:40 Extrem Right upper extremity: wrist Details: normal to inspection; no tenderness and no swelling and hand Details: abnormal to inspection (Heberden's nodule in distal phalange in right longer finger with mild erythema. No significant swelling.), normal capillary refill, neuromotor exam normal, neurosensory exam normal, tendon exam normal, vascular exam Details: radial pulse present and normal ROM of fingers; no tenderness, no unusual warmth, no crepitus and no puncture wound <Violeta Mtz DO - Last Filed: 11/24/20 17:38> Initial Vital Signs Initial Vital Signs: Vital Signs Temperature 98.3 F 11/24/20 11:40 Pulse Rate 81 11/24/20 11:40 Respiratory Rate 15 11/24/20 11:40 Blood Pressure 167/84 H 11/24/20 11:40 Pulse Oximetry 96 11/24/20 11:40 Scores <LUIZA Gomes - Last Filed: 11/24/20 12:35> GCS Lauren coma scale eye opening: Spontaneous Lauren coma scale verbal response: Orientated Lauren coma scale motor response: Obey commands [place] coma scale total score: 15 Course <LUIZA Gomes - Last Filed: 11/24/20 12:35> Orders Ordered: ED Orders 11/24/20 11:44 XR finger RT min 2V Stat Vital Signs Vital signs: Vital Signs - 8 hr 11/24/20 11:40 Temperature 98.3 F Pulse Rate 81 Respiratory Rate 15 Blood Pressure 167/84 H Pulse Oximetry 96 <Violeta Mtz DO - Last Filed: 11/24/20 17:38> Orders Ordered: ED Orders 11/24/20 11:44 XR finger RT min 2V Stat Vital Signs Vital signs: Vital Signs - 8 hr 11/24/20 11:40 Temperature 98.3 F Pulse Rate 81 Respiratory Rate 15 Blood Pressure 167/84 H Pulse Oximetry 96 MDM - Extremity (Nontraumatic) <LUIZA Gomes - Last Filed: 11/24/20 12:35> Differential Diagnosis Differential diagnosis: Likely other (Osteoarthritis of right long finger, fracture, dislocation) Medical Records Attestation: I reviewed the patient's medical records. Imaging Data XR-Finger RT: Radiologist's Impression: [address] [id number] ReportSigned Patient: Mitzy Paulson PMR#: [id number]: 1940Acct:[id number]/Sex: 80 / FDate of Service: 11/24/20Loc: EDAccession Number: [id number] Procedure: XR finger RT min 2V Ordering Provider: Juan Miguel Potter PROCEDURE: XR FINGER RT MIN 2V INDICATIONS: worried she broke her finger TECHNIQUE: AP hand, 2 views of the 3rd finger(s) acquired. COMPARISON: None. FINDINGS: Bones: No fractures or dislocations. No suspicious bony lesions. Diffuse IP degenerative narrowing is present. There is slight subluxation at the 3rd PIP and DIP joint. Osteophyte with lucency is noted along the dorsal aspect of the 3rd digit. Soft tissues: No suspicious soft tissue calcifications. IMPRESSION: Periarticular osteophytes at the 3rd DIP joint with lucency, which could could represent fracture if point tenderness is present. Dictated by: Glenna Mckeon M.D. on 11/24/2020 at 12:12 Approved by: Glenna Mckeon M.D. on 11/24/2020 at 12:14 [facility] Narrative Medical decision making narrative: X-ray test shows periarticular osteophytes at the 3rd PIP joint. Patient does not have significant pain per palpation and is able to move finger and joints without difficulty. Physical exam is not consistent with cellulitis. Given patient does not have pain with full function, patient advised to monitor at this time. Follow-up with PCP patient has significant pain or decreased function. Continue with Celebrex daily. Return precautions discussed with patient and she verbalized understanding and agreement with the treatment plan. Discharge Plan Departure Patient Disposition: Home Clinical Impression: Bone spur of finger IP joint Activity Restrictions/Additional Instructions: You have been diagnosed with [osteophyte (bone spur) on of the 3rd finger DIP. No pain at this time with a full ROM.]. What to do: *Take your medications as directed. You can continue with Celebrex daily. *Follow up with your primary care provider in 2-3 days, call for an appointment. Let them know you were seen in the ED and that we asked you to be seen in follow up if you have significant pain and decreased function. *Return to ED if you have any new, worsening, or concerning symptoms, such as [worsening pain, numbness/weakness/tingling on affected finger, increased swelling, redness, or any acute concerns]. Prescriptions: No Action levothyroxine 50 mcg tablet 50 mcg PO DAILY Qty: 90 RF: 3 celecoxib [Celebrex] 100 mg capsule 100 mg PO DAILY Qty: 90 RF: 3 escitalopram oxalate 5 mg tablet 15 mg PO DAILY Qty: 270 RF: 3 Referrals: Maximino Mcknight ARNP [Primary Care Provider] - <Violeta Mtz DO - Last Filed: 11/24/20 17:38> Cosign ED Attending Elijahature Attestation: I was immediately available in the department for consultation. Documentation has been reviewed. I agree with assessment and plan.
== END 2020-11-24 12:35 | disposition home or self-care (01) ==
PROVIDERS: Emergency Provider Nurse Practitioner Family; PCP Registered Nurse Diabetes Educator
DX: M77.8 Other enthesopathies, not elsewhere classified (principal)
CPT/HCPCS: 73140; 99283

== ENCOUNTER → 2020-12-12 13:27 | Outpatient (CLI) | payer OTHER, SELFPAY ==
--- NOTE | 2020-12-12 13:33 | DI.CT.S_ITS ---
PROCEDURE: CT UE RT WO CON INDICATIONS: Periarticular osteophytes Right 3rd DIP joint w/lucency,R/O fx TECHNIQUE: Noncontrast 1 mm axial sections acquired through the carpal bones, with coronal and sagittal reformats. COMPARISON: [facility], CR, XR FINGER RT MIN 2V, 11/24/2020, 11:47. FINDINGS: Image quality: Excellent. Bones: Severe joint space narrowing is seen at the 3rd distal interphalangeal joint with marginal osteophyte formation. A small lucency is seen at the base of the dorsal osteophyte without overlying soft tissue edema, favored to be degenerative or chronic posttraumatic in etiology rather than secondary to an acute injury. Additional multifocal moderate to severe degenerative changes are seen throughout the distal interphalangeal joints with mild are mild degenerative changes at the proximal interphalangeal joints. Severe degenerative changes are present at the 1st carpometacarpal joint. A small ossification adjacent to the ulnar styloid tip is likely the sequela of prior trauma. Soft tissues: Mild soft tissue edema is seen within the 2nd finger distally, and to a lesser extent the distal 3rd finger. No radiopaque foreign body is seen. The articular cartilages, ligaments, and tendons are not well evaluated with CT. The intrinsic hand musculature is normal in bulk. IMPRESSION: 1. Severe degenerative changes at the 3rd distal interphalangeal joint with dorsal osteophyte formation. A lucency at the base of the dorsal osteophyte is favored to be secondary to degenerative changes or remote prior trauma rather than an acute fracture. 2. Mild nonspecific of the soft tissue edema in the distal 2nd and 3rd fingers. 3. 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 Dictated by: Jevon London M.D. on 12/12/2020 at 14:05 Approved by: Jevon London M.D. on 12/12/2020 at 14:16
== END ==
PROVIDERS: PCP Registered Nurse Diabetes Educator; Referring Provider Registered Nurse Diabetes Educator; Visit Provider Registered Nurse Diabetes Educator
DX: M79.644 Pain in right finger(s) (principal); M18.11 Unilateral primary osteoarthritis of first carpometacarpal joint, right hand; M19.041 Primary osteoarthritis, right hand
CPT/HCPCS: 73200

== ENCOUNTER → 2020-12-15 14:55 | Outpatient (CLI) | payer MEDICARE, SELFPAY ==
[2020-12-15] MEDS: COVID-19 VACC #2, MRNA(MOD) 100 MCG/0.5 ML VIAL IM (15:05)
== END ==
PROVIDERS: PCP Registered Nurse Diabetes Educator; Visit Provider Internal Medicine
DX: Z23 Encounter for immunization (principal)
CPT/HCPCS: 0012A; 91301

== ENCOUNTER → 2021-10-30 14:20 | Outpatient (CLI) | payer OTHER, SELFPAY ==
[2021-10-30 14:54] LABS: Hematocrit 38.7 % (36-46); Hemoglobin 12.7 g/dL (12.0-16.0); Mean Corpuscular HGB Conc 32.9 % (30-36); Mean Corpuscular Hemoglobin 28.1 PG (26-34); Mean Corpuscular Volume 85.4 fL (80-100); Platelet Count 197 X10^3/uL (150-400); Red Blood Cell Count 4.53 X10^6/uL (4.0-5.2); Red Cell Distribution Width 14.5 % (11.6-14.8); White Blood Cell Count 5.8 X10^3/uL (4.5-11.0)
[2021-10-30 16:03] LABS: Alanine Aminotransferase 15 IU/L (<35); Albumin Globulin Ratio 1.4 (1.0-2.8); Alkaline Phosphatase 74 U/L (38-126); Aspartate Aminotransferase 28 IU/L (14-36); BUN Creatinine Ratio 13.3 (6-22); Bilirubin Total 0.8 mg/dL (0.2-1.3); Blood Urea Nitrogen 12 mg/dL (7-17); Calcium 8.6 mg/dL (8.4-10.2); Carbon Dioxide 30 mmol/L (22-32); Chloride 107 mmol/L (98-107); Estimated Glomerular Filt Rate > 60.0 mL/min (>60); Globulin 2.8 g/dL (1.7-4.1); Glucose 101 mg/dL (80-110); HEMOLYSIS < 15 (0-50); Potassium 4.3 mmol/L (3.4-5.1); Sodium 140 mmol/L (137-145); Total Protein 6.8 g/dL (6.3-8.2)
[2021-10-30 16:33] LABS: TSH w/ Reflex to FT4 7.35 uIU/mL (0.47-4.68)
[2021-10-30 17:20] LABS: Free T4, Direct Thyroxine 0.76 ng/dL (0.78-2.19)
== END ==
PROVIDERS: PCP Registered Nurse Diabetes Educator; Referring Provider Registered Nurse Diabetes Educator; Visit Provider Registered Nurse Diabetes Educator
DX: R41.3 Other amnesia (principal); E03.9 Hypothyroidism, unspecified; Z51.81 Encounter for therapeutic drug level monitoring; F32.9 Major depressive disorder, single episode, unspecified
CPT/HCPCS: 36415; 80053; 84439; 84443; 85027

== ENCOUNTER → 2022-02-18 13:53 | Outpatient (CLI) | payer OTHER, SELFPAY ==
[2022-02-18 18:27] LABS: Free T4, Direct Thyroxine 0.86 ng/dL (0.78-2.19)
== END ==
PROVIDERS: PCP Registered Nurse Diabetes Educator; Referring Provider Registered Nurse Diabetes Educator; Visit Provider Registered Nurse Diabetes Educator
DX: E03.9 Hypothyroidism, unspecified (principal)
CPT/HCPCS: 36415; 84439; 84443

== ENCOUNTER → 2022-08-12 12:50 | Outpatient (CLI) | payer OTHER, SELFPAY ==
[2022-08-12 14:41] LABS: TSH w/ Reflex to FT4 1.83 uIU/mL (0.47-4.68)
== END ==
PROVIDERS: PCP Registered Nurse Diabetes Educator; Referring Provider Registered Nurse Diabetes Educator; Visit Provider Registered Nurse Diabetes Educator
DX: E03.9 Hypothyroidism, unspecified (principal)
CPT/HCPCS: 36415; 84443